=== PATIENT | female | born 1945 | race Caucasian/White ===

== ENCOUNTER 2016-12-10 20:15 | Emergency (ER) | payer MEDICARE, OTHER ==
[~2016-12-10] VITALS: Ht 167.6 cm; Wt 57.3 kg
[~2016-12-10 20:15] MED LIST: ALBU1AER INH; AMLO5TAB22 PO; LEVO.075 PO; LISI-363 PO; SYMB160A INH; TEMA15 PO; ZOLO50TA PO
[2016-12-10 20:38] VITALS: BP 188/96; PULSE 94; RESP 20; TEMP 98.6
[2016-12-10] MEDS ORDERED: AMLO5CAP PO (21:58)
[2016-12-10] MEDS ORDERED: SERT-129 PO (21:59)
[2016-12-10] MEDS ORDERED: TEMA15CA PO (21:59)
[2016-12-10] MEDS ORDERED: LEVO.075 PO (21:59)
[2016-12-10] MEDS ORDERED: LISI-515 PO (21:59)
--- NOTE | 2016-12-10 22:33 | PD ---
HPI Chief Complaint: ENT Complaint Time Seen by Provider: 20:00 Travel History International Travel<30 days: No Contact w/Intl Traveler<30days: No Traveled to known affect area: No History of Present Illness HPI Patient is 71-year-old female presenting to the emergency department for evaluation of a sore throat that has been ongoing for approximately one month. Patient denies any fever, chills, nausea, vomiting, headache. She denies any voice changes or weight loss. Her friend is with her and states that her voice is raspier than it normally is. Patient smokes one and half packs of cigars daily and drinks 3-4 beers daily. Patient reports feeling fatigued for the last 3 years. She has a primary doctor and sona [place] but she has not seen him because it's hard to get there and she feels that he doesn't address her problems. Patient reports that she has a thyroid problem and is on level thyroxine but is not compliant with taking that medication. Additionally she is on Zoloft but is not compliant with that medication either. PFSH Past Medical History Hx Anticoagulant Therapy: No Asthma: Yes (bronchitis) Blood Disorders: No Anxiety: Yes Depression: Yes Heart Rhythm Problems: No Cancer: No Cardiovascular Problems: Yes High Cholesterol: No Chemotherapy: No Chest Pain: No Congestive Heart Failure: No COPD: Yes Cerebrovascular Accident: No Diabetes: No Diminished Hearing: No Endocrine: Yes Gastrointestinal Disorders: No GERD: No Genitourinary: Yes Headaches: Yes Hiatal Hernia: No Hypertension: Yes Immune Disorder: No Implanted Vascular Access Dvce: Yes Kidney Stones: No Musculoskeletal: No Neurologic: Yes ("fuzzy feeling".) Psychiatric: Yes Reproductive: No Respiratory: Yes (COPD) Immunizations Current: Yes Migraines: No Radiation Therapy: No Renal Failure: No Seizures: Yes Sleep Apnea: No Thyroid Disease: Yes Ulcer: No PNEUMOCCOCAL Vaccine (Year): 2 Menopausal: Yes Past Surgical History Abdominal Surgery: No AICD: No Arteriovenous Shunt: No Cardiac Surgery: No Ear Surgery: No Endocrine Surgery: No Eye Surgery: No Genitourinary Surgery: No Gynecologic Surgery: Yes (1967 SURGERY TO CORRECT ENDOMETRIOSIS) Insulin Pump: No Joint Replacement: No (screws in left hip.) Neurologic Surgery: No Oral Surgery: No Pacemaker: No Thoracic Surgery: No Tonsillectomy: Yes Other Surgery: Yes (LEFT HIP) Social History Alcohol Use: Yes (4 beers daily) Tobacco Use: Yes (1 1/2-2 ppd) Substance Use: No Allergies-Medications (Allergen,Severity, Reaction): Coded Allergies: Codeine (Verified Allergy, Severe, Irritability/Anxiety, 04/26/16) Oxycontin (Verified Allergy, Intermediate, ITCHES, 04/26/16) Percocet (Verified Allergy, Intermediate, ITCHES, 04/26/16) Reported Meds & Prescriptions Reported Meds & Active Scripts Active Reported Temazepam 15 Mg Cap 15 Mg PO HS PRN Sertraline (Sertraline HCl) 100 Mg Tab 100 Mg PO DAILY Synthroid (Levothyroxine Sodium) 75 Mcg Tab 75 Mcg PO DAILY Lisinopril 20 Mg Tab 20 Mg PO DAILY Amlodipine-Benazepril 5-10 Mg Cap 1 Cap PO DAILY Review of Systems Except as stated in HPI: all other systems reviewed are Neg General / Constitutional: No: Fever, Chills, Weight Loss HENT: Positive: Sore Throat, No: Headaches, Lightheadedness Cardiovascular: No: Chest Pain or Discomfort Respiratory: Positive: Cough (chronic), No: Shortness of Breath Gastrointestinal: No: Nausea, Vomiting, Diarrhea, Abdominal Pain Musculoskeletal: No: Myalgias Physical Exam Narrative GENERAL: Well-nourished, well-developed patient. SKIN: Warm and dry. HEAD: Normocephalic. ENT: Mucosa pink and moist. No erythema or exudates. No uvular edema. No uvular , palatal, or tonsillar deviation. Airway patent. Nasal turbinates appear normal without nasal blood, purulent drainage or septal hematoma. Cobblestone appearance to posterior pharynx, no erythema noted. EYES: No scleral icterus. No injection or drainage. NECK: Supple, trachea midline. No JVD or lymphadenopathy. CARDIOVASCULAR: Regular rate and rhythm without murmurs, gallops, or rubs. RESPIRATORY: Breath sounds equal bilaterally. No accessory muscle use. GASTROINTESTINAL: Abdomen soft, non-tender, nondistended. MUSCULOSKELETAL: No cyanosis, or edema. BACK: Nontender without obvious deformity. No CVA tenderness. Data Data Last Documented VS Vital Signs Date Time Temp Pulse Resp B/P Pulse Ox O2 Delivery O2 Flow Rate FiO2 12/11/16 00:25 88 20 206/82 97 12/10/16 20:38 98.6 Orders Chest, Pa & Lat (12/10/16 ) Lisinopril (Prinivil) (12/11/16 00:15) MDM Medical Decision Making Medical Screen Exam Complete: Yes Emergency Medical Condition: Yes Interpretation(s) Vital Signs Date Time Temp Pulse Resp B/P Pulse Ox O2 Delivery O2 Flow Rate FiO2 12/10/16 20:38 98.6 94 20 188/96 Differential Diagnosis Silent reflux versus allergic rhinitis versus malignancy versus hypothyroidism versus other Narrative Course Patient is 71-year-old female presenting to the emergency department for evaluation of a sore throat that is ongoing for at least a month. Patient has had no weight loss, minor voice changes per her friend's report. Patient smokes a pack and a half of cigars a day and drinks alcohol daily. In the differential would include silent acid reflux, allergic rhinitis, malignancy, both thyroidism. Patient is not compliant with her thyroid medication at home. Chest x-ray was ordered and pending. Patient was also seen and evaluated by my attending physician. Patient was strongly encouraged to follow-up with her primary doctor her multiple medical complaints would best be evaluated a primary care setting. He was encouraged to maintain compliance with prescribed medications. She was further encouraged to make a list of medical complaints to bring to her primary doctor so that each one is addressed individually. Patient was encouraged to obtain [id number] Flonase her Nasonex and use as directed for at least 2 weeks to assess efficacy, to assess if allergic rhinitis was the cause of the throat pain. She was encouraged to obtain [id number] ranitidine or omeprazole and use as directed for at least 2 weeks to assess efficacy to see if silent reflux would be the cause of the sore throat. Additionally patient was encouraged to follow up with a dentist to have her teeth and mouth fully evaluated. Care of patient transferred to my attending physician at the end of my shift. She will determine patient's disposition Tanika Napoles Dec 10, 2016 22:33
--- NOTE | 2016-12-10 23:05 | RADHPO ---
EXAM DATE/TIME: 12/10/2016 22:46 [facility] COMPARISON: CHEST SINGLE AP, November 21, 2015, 20:04. INDICATIONS : Sore throat for 3 weeks. MEDICAL HISTORY : Chronic obstructive pulmonary disease. SURGICAL HISTORY : None. ENCOUNTER: Initial ACUITY: 3 weeks PAIN SCORE: 3/10 LOCATION: Bilateral chest FINDINGS: Hyperinflation of both lungs. Aortic calcification. There are fractures of the left fifth and sixth p osterior ribs as well as the seventh posterior left rib, subacute. No consolidation or effusion. CONCLUSION: Subacute left-sided rib fractures and hyperinflation. Robert Riggins MD on December 10, 2016 at 23:02 Board Certified Radiologist. This report was verified electronically.
--- NOTE | 2016-12-10 23:51 | PD ---
Physical Exam Date Seen by Provider: Dec 10, 2016 Time Seen by Provider: 23:10 Narrative accepted in transfer of care GENERAL: Well-developed well-nourished female in no acute distress no respiratory distress SKIN: Warm and dry. HEAD: Normocephalic. EYES: No scleral icterus. No injection or drainage. ENT: Mucous membranes moist airway is patent no erythema edema or exudative change no visible soft tissue/mucous membrane mass. NECK: Supple, trachea midline. No JVD or lymphadenopathy. CARDIOVASCULAR: Regular rate and rhythm without murmurs, gallops, or rubs. Chest wall: Mild tenderness to direct palpation of the left anterior chest wall no crepitus no ecchymosis or abrasion RESPIRATORY: Breath sounds equal bilaterally. No accessory muscle use. GASTROINTESTINAL: Abdomen soft, non-tender, nondistended. MUSCULOSKELETAL: No cyanosis, or edema. BACK: Nontender without obvious deformity. No CVA tenderness. Data Data Last Documented VS Vital Signs Date Time Temp Pulse Resp B/P Pulse Ox O2 Delivery O2 Flow Rate FiO2 12/11/16 00:25 88 20 206/82 97 12/10/16 20:38 98.6 Orders Chest, Pa & Lat (12/10/16 ) Lisinopril (Prinivil) (12/11/16 00:15) MDM Medical Record Reviewed: Yes Supervised Visit with ERICKA: Yes Interpretation(s) Last Impressions Chest X-Ray 12/10/16 0000 Signed Impressions: Service Date/Time: Saturday, December 10, 2016 22:46 - CONCLUSION: Subacute left-sided rib fractures and hyperinflation. Robert Riggins MD Differential Diagnosis Sore throat, pharyngitis, reflux esophagitis, rhinosinusitis, mass, viral syndrome, chest wall pain, rib fracture, COPD, bronchitis Narrative Course Patient seen in evaluation with PA and agree with assessment and plan; patient will have chest x-ray performed Chest x-ray reveals evidence of subacute left-sided rib fractures without evidence of infiltrate mass or pneumothorax Patient aware of imaging results in stable for outpatient management Diagnosis Primary Impression: Sore throat Additional Impression: Left rib fracture Qualified Code: S22.42XA - Closed fracture of multiple ribs of left side, initial encounter Referrals: Primary Care Physician call for appointment Patient Instructions: General Instructions Additional Instruction: Take acetaminophen and/or as tolerated ibuprofen per package instructions as needed for minor pain or for pain associated with inflammation respectively Follow-up with your primary care provider May use [id number] Pepcid AC per package directions daily for 2 weeks Increase fluid hydration May use [id number] Nasacort per package directions Return to the emergency department for any concerns or change in condition Med/Other Pt SpecificInfo: No Change to Meds Disposition: 01 DISCHARGE HOME Condition: Stable Elaine Jones MD Dec 10, 2016 23:51
[2016-12-11] MEDS ORDERED: LISINOPRIL 20 MG TAB PO ONE (00:15)
[2016-12-11 00:25] VITALS: BP 206/82
== END 2016-12-11 00:30 | disposition home or self-care (01) ==
LOC: PHEFT 20:15
DX: S22.42XA Multiple fractures of ribs, left side, initial encounter for closed fracture (principal); J02.9 Acute pharyngitis, unspecified; F17.290 Nicotine dependence, other tobacco product, uncomplicated; X58.XXXA Exposure to other specified factors, initial encounter
CPT/HCPCS: 71020; 99283

== ENCOUNTER 2016-12-19 17:54 | Inpatient (IN) | payer MEDICARE, MEDICAID ==
[~2016-12-19] VITALS: Ht 165.1 cm; Wt 54.2 kg
[2016-12-19] VITALS (7 sets, daily range): BP systolic 140–182; BP diastolic 73–85; PULSE 79–92; RESP 18–20; TEMP 97.7–97.8; O2SAT 94–98
[~2016-12-19 17:54] MED LIST changes: -ALBU1AER INH; +AMLO5CAP PO; -AMLO5TAB22 PO; -LISI-363 PO; +LISI-515 PO; +SERT-129 PO; -SYMB160A INH; -TEMA15 PO; +TEMA15CA PO; -ZOLO50TA PO
--- NOTE | 2016-12-19 18:43 | PD ---
HPI Chief Complaint: Respiratory Symptoms Time Seen by Provider: 18:21 Travel History International Travel<30 days: No Contact w/Intl Traveler<30days: No Traveled to known affect area: No History of Present Illness HPI 71-year-old female with history of COPD, tobaccoism, here for evaluation of shortness of breath, nausea, generalized malaise, generalized weakness, and ear fullness. Symptoms started yesterday. The patient sleeps with earplugs and feels as though she may left the earplugs in her ears. She has had subjective fevers and chills. Nonproductive cough. No chest pain. Dyspnea is at rest, worse with exertion. No abdominal pain, vomiting, or diarrhea. PFSH Past Medical History Hx Anticoagulant Therapy: Yes (81MG ASA) Asthma: Yes (bronchitis) Blood Disorders: No Anxiety: Yes Depression: Yes Heart Rhythm Problems: No Cancer: No Cardiovascular Problems: Yes High Cholesterol: No Chemotherapy: No Chest Pain: No Congestive Heart Failure: No COPD: Yes Cerebrovascular Accident: No Diabetes: No Diminished Hearing: No Endocrine: Yes Gastrointestinal Disorders: No GERD: No Genitourinary: Yes Headaches: Yes Hiatal Hernia: No Hypertension: Yes Immune Disorder: No Implanted Vascular Access Dvce: Yes Kidney Stones: No Musculoskeletal: No Neurologic: Yes ("fuzzy feeling".) Psychiatric: Yes Reproductive: No Respiratory: Yes (COPD) Immunizations Current: Yes Migraines: No Radiation Therapy: No Renal Failure: No Seizures: Yes Sleep Apnea: No Thyroid Disease: Yes Ulcer: No Tetanus Vaccination: Unknown PNEUMOCCOCAL Vaccine (Year): 2 ?: Not Menopausal: Yes Past Surgical History Abdominal Surgery: No AICD: No Arteriovenous Shunt: No Cardiac Surgery: No Ear Surgery: No Endocrine Surgery: No Eye Surgery: No Genitourinary Surgery: No Gynecologic Surgery: Yes (1967 SURGERY TO CORRECT ENDOMETRIOSIS) Hysterectomy: Yes Insulin Pump: No Joint Replacement: No (screws in left hip.) Neurologic Surgery: No Oral Surgery: No Pacemaker: No Thoracic Surgery: No Tonsillectomy: Yes Other Surgery: Yes (LEFT HIP) Social History Alcohol Use: Yes (4 beers daily) Tobacco Use: Yes (1 1/2-2 ppd) Substance Use: No Allergies-Medications (Allergen,Severity, Reaction): Coded Allergies: Codeine (Verified Allergy, Severe, Irritability/Anxiety, 12/19/16) Oxycontin (Verified Allergy, Intermediate, ITCHES, 12/19/16) Percocet (Verified Allergy, Intermediate, ITCHES, 12/19/16) Reported Meds & Prescriptions Reported Meds & Active Scripts Active Reported Temazepam 15 Mg Cap 15 Mg PO HS PRN Sertraline (Sertraline HCl) 100 Mg Tab 100 Mg PO DAILY Synthroid (Levothyroxine Sodium) 75 Mcg Tab 75 Mcg PO DAILY Lisinopril 20 Mg Tab 20 Mg PO DAILY Amlodipine-Benazepril 5-10 Mg Cap 1 Cap PO DAILY Review of Systems Except as stated in HPI: all other systems reviewed are Neg Physical Exam Narrative GENERAL: Well-developed, thin, no acute distress. SKIN: Warm and dry. HEAD: Atraumatic. Normocephalic. EYES: Pupils equal and round. No scleral icterus. No injection or drainage. ENT: Mucous membranes pink and moist. Bilateral tympanic membrane and external auditory canals are normal. NECK: Trachea midline. No JVD. No nuchal rigidity. CARDIOVASCULAR: Regular rate and rhythm. RESPIRATORY: No accessory muscle use. Coarse breath sounds bilaterally. End expiratory wheezes bilaterally. Breath sounds equal bilaterally. GASTROINTESTINAL: Abdomen soft, non-tender, nondistended. MUSCULOSKELETAL: No obvious deformities. No clubbing. No cyanosis. No edema. NEUROLOGICAL: Awake and alert. No obvious cranial nerve deficits. Motor grossly within normal limits. Normal speech. PSYCHIATRIC: Appropriate mood and affect; insight and judgment normal. Data Data Last Documented VS Vital Signs Date Time Temp Pulse Resp B/P Pulse Ox O2 Delivery O2 Flow Rate FiO2 12/19/16 20:23 80 18 182/73 98 Nasal Cannula 2 12/19/16 17:58 97.7 Orders Complete Blood Count With Diff (12/19/16 18:39) Comprehensive Metabolic Panel (12/19/16 18:39) B-Type Natriuretic Peptide (12/19/16 18:39) Act Partial Throm Time (Ptt) (12/19/16 18:39) Prothrombin Time / Inr (Pt) (12/19/16 18:39) Ckmb (Isoenzyme) Profile (12/19/16 18:39) Troponin I (12/19/16 18:39) Influenzae A/B Antigen (12/19/16 18:39) Iv Access Insert/Monitor (12/19/16 18:39) Electrocardiogram (12/19/16 18:39) Ecg Monitoring (12/19/16 18:39) Oximetry (12/19/16 18:39) Oxygen Administration (12/19/16 18:39) Chest, Single Ap (12/19/16 18:39) Sodium Chloride 0.9% Flush (Ns Flush) (12/19/16 18:45) Methylprednisolone So Succ Inj (Solumedr (12/19/16 18:45) Albuterol-Ipratropium Neb (Duoneb Neb) (12/19/16 18:45) CKMB (12/19/16 18:50) CKMB% (12/19/16 18:50) Basic Metabolic Panel (Bmp) (12/19/16 20:01) Potassium Chlor 20 Meq Premix (Kcl 20 Me (12/19/16 20:15) Sodium Chlor 0.9% 1000 Ml Inj (Ns 1000 M (12/19/16 20:01) Nicotine 21 Mg Patch.24 Hr (Habitrol 21 (12/19/16 20:45) Labs Laboratory Tests Test 12/19/16 12/19/16 18:50 20:10 White Blood Count 4.4 TH/MM3 Red Blood Count 4.90 MIL/MM3 Hemoglobin 14.8 GM/DL Hematocrit 43.9 % Mean Corpuscular Volume 89.6 FL Mean Corpuscular Hemoglobin 30.2 PG Mean Corpuscular Hemoglobin 33.7 % Concent Red Cell Distribution Width 13.1 % Platelet Count 327 TH/MM3 Mean Platelet Volume 8.1 FL Neutrophils (%) (Auto) 67.7 % Lymphocytes (%) (Auto) 11.9 % Monocytes (%) (Auto) 19.9 % Eosinophils (%) (Auto) 0.1 % Basophils (%) (Auto) 0.4 % Neutrophils # (Auto) 3.0 TH/MM3 Lymphocytes # (Auto) 0.5 TH/MM3 Monocytes # (Auto) 0.9 TH/MM3 Eosinophils # (Auto) 0.0 TH/MM3 Basophils # (Auto) 0.0 TH/MM3 CBC Comment DIFF FINAL Differential Comment Prothrombin Time 10.5 SEC Prothromb Time International 1.0 RATIO Ratio Activated Partial 30.3 SEC Thromboplast Time Sodium Level 112 MEQ/L 113 MEQ/L Potassium Level 2.2 MEQ/L 2.5 MEQ/L Chloride Level 70 MEQ/L 71 MEQ/L Carbon Dioxide Level 29.8 MEQ/L 28.4 MEQ/L Anion Gap 12 MEQ/L 14 MEQ/L Blood Urea Nitrogen 5 MG/DL 5 MG/DL Creatinine 0.59 MG/DL 0.50 MG/DL Estimat Glomerular Filtration 101 ML/MIN 122 ML/MIN Rate Random Glucose 179 MG/DL 139 MG/DL Calcium Level 8.3 MG/DL 8.5 MG/DL Total Bilirubin 0.5 MG/DL Aspartate Amino Transf 29 U/L (AST/SGOT) Alanine Aminotransferase 27 U/L (ALT/SGPT) Alkaline Phosphatase 85 U/L Total Creatine Kinase 256 U/L Creatine Kinase MB 13.3 NG/ML Creatine Kinase MB % 5.2 % Troponin I LESS THAN 0.02 NG/ML B-Type Natriuretic Peptide 48 PG/ML Total Protein 7.3 GM/DL Albumin 3.8 GM/DL MDM Medical Decision Making Medical Screen Exam Complete: Yes Emergency Medical Condition: Yes Medical Record Reviewed: Yes Interpretation(s) EKG: Sinus, rate 80, normal axis, short PA interval, LVH, extensive ST/T changes which can either be secondary to hypertrophy and/or ischemia, essentially unchanged from prior. Differential Diagnosis COPD exacerbation, pneumonia, influenza, URI, ACS, PE Narrative Course Vital signs show heart rate 88, blood pressure 141/85, pulse ox 97% on room air , oral temp of 97.7F. CBC is unremarkable. CMP is remarkable for sodium 112, potassium 2.2, chloride 70, random glucose 179 , otherwise unremarkable. Repeat BMP ordered to confirm these lab abnormalities. Troponin is negative. CK is 256, CK-MB is 13.3 with CK-MB percent 5.2%. Chest x-ray shows no acute disease. The patient was made aware of all findings per she is resting comfortably. She is awake and alert. She has been told that she has had low sodium in the past. She drinks tea throughout the day and drinks beer at night/evening time. She has not had any alcohol today. At this point there is no indication for hypertonic saline. Repeat BMP ordered to confirm lab abnormalities. Repeat BMP shows sodium 113, potassium 2.5, chloride 71. Again the patient is awake. According to the patient's sister who is present she seemed a little confused. She is not obtunded. She is not having seizures. There is no indication for hypertonic saline. She was started on normal saline at 125 cc per hour and parenteral potassium ordered. Patient will be admitted for further treatment and evaluation of hyponatremia, hypokalemia. Case discussed with deputy fire marshal Dr. Matute who will admit the patient to her service to the ICU here in [place]. Diagnosis Primary Impression: Hyponatremia Additional Impression: Hypokalemia Admitting Information Admitting Physician Requests: Admit Isac Storey MD Dec 19, 2016 18:43
[2016-12-19] MEDS ORDERED: RESP: ALBUTEROL 2.5 MG/IPRATROPIUM 0.5 MG NEB (SCH) INH ONE (18:45)
[2016-12-19] MEDS ORDERED: methylPREDNISolone SOD SUCC 125 MG/2 ML VIAL IVP ONE (18:45)
[2016-12-19] MEDS ORDERED: SODIUM CHLORIDE 0.9% FLUSH 5 ML FLUSH IVF PRN (18:45)
[2016-12-19 19:08] LABS: BASOPHIL % 0.4 % (0.0-2.0); EOSINOPHIL % 0.1 % (0.0-4.0); HEMATOCRIT 43.9 % (35.0-46.0); HEMO FLAGS DIFF FINAL; LYMPH % 11.9 % (9.0-44.0); LYMPHOCYTE # 0.5 TH/MM3 (1.0-4.8); MEAN CELL VOLUME 89.6 FL (80.0-100.0); MEAN CORPUSCULAR HEMOGLOBIN 30.2 PG (27.0-34.0); MEAN CORPUSCULAR HGB CONC 33.7 % (32.0-36.0); MONO % 19.9 % (0.0-8.0); NEUT % 67.7 % (16.0-70.0); PLATELET COUNT 327 TH/MM3 (150-450); RED CELL DISTRIBUTION WIDTH 13.1 % (11.6-17.2); WHITE BLOOD COUNT 4.4 TH/MM3 (4.0-11.0)
[2016-12-19 19:22] LABS: APTT (PATIENT) 30.3 SEC (24.3-30.1); PROTHROMBIN TIME - PATIENT 10.5 SEC (9.8-11.6)
--- NOTE | 2016-12-19 19:31 | RADHPO ---
EXAM DATE/TIME: 12/19/2016 18:42 [facility] COMPARISON: CHEST SINGLE AP, November 21, 2015, 20:04. INDICATIONS : Short of breath. MEDICAL HISTORY : Chronic obstructive pulmonary disease. SURGICAL HISTORY : None. ENCOUNTER: Initial ACUITY: 2 days PAIN SCORE: 0/10 LOCATION: Bilateral chest FINDINGS: A single view of the chest demonstrates the lungs to be symmetrically aerated without evidence of mas s, infiltrate or effusion. The cardiomediastinal contours are unremarkable. Osseous structures are intact. CONCLUSION: No acute disease. Salinas Willard MD on December 19, 2016 at 19:30 Board Certified Radiologist. This report was verified electronically.
[2016-12-19 19:42] LABS: ALKALINE PHOSPHATASE 85 U/L (45-117); ALT (GPT) 27 U/L (10-53); ANION GAP 12 MEQ/L (5-15); AST (GOT) 29 U/L (15-37); BICARBONATE 29.8 MEQ/L (21.0-32.0); BLOOD UREA NITROGEN 5 MG/DL (7-18); CHLORIDE 70 MEQ/L (98-107); CREATINE KINASE 256 U/L (26-192); GLOMERULAR FILTRATION RATE 101 ML/MIN (>89); TOTAL BILIRUBIN ADULT 0.5 MG/DL (0.2-1.0)
[2016-12-19 19:44] LABS: POTASSIUM 2.2 MEQ/L (3.5-5.1); SODIUM (NA) 112 MEQ/L (136-145)
[2016-12-19 19:58] LABS: CKMB 13.3 NG/ML (0.5-3.6)
[2016-12-19] MEDS ORDERED: SODIUM CHLOR 0.9% 1000 ML INJ 1,000 ML IV SCH (20:01)
[2016-12-19] MEDS ORDERED: POTASSIUM CHLOR 20 MEQ PREMIX 100 ML IV SCH (20:15)
[2016-12-19 20:29] LABS: BICARBONATE 28.4 MEQ/L (21.0-32.0)
[2016-12-19 20:35] LABS: POTASSIUM 2.5 MEQ/L (3.5-5.1)
[2016-12-19] MEDS ORDERED: NICOTINE 21 MG/24 HR PATCH TD ONE (20:45)
[2016-12-19] MEDS ORDERED: CHLORHEXIDINE GLUCONATE 2 % 1 PACK (2 CLOTHS) TOP PRN (21:45)
[2016-12-19] MEDS ORDERED: ONDANSETRON HCL 4 MG/2 ML VIAL IV PRN (21:45)
[2016-12-19] MEDS ORDERED: ASPIRIN 81 MG CHEW TAB PO ONE (21:45)
[2016-12-19] MEDS ORDERED: DEXTROSE 50% IN WATER 50 ML VIAL(D50) IV PUSH PRN (21:45)
[2016-12-19] MEDS ORDERED: SODIUM CHLORIDE 0.9% FLUSH 5 ML FLUSH IV FLUSH PRN (21:45)
[2016-12-19] MEDS ORDERED: MISCELLANEOUS NURSING INFORMATION XX SCH (21:45)
[2016-12-19] MEDS ORDERED: RESP: ALBUTEROL 2.5 MG/3 ML NEB (PRN) INH (21:45)
[2016-12-19] MEDS ORDERED: GLUCAGON 1 MG/ML VIAL OTHER PRN (21:45)
[2016-12-19] MEDS ORDERED: POTASSIUM CHLORIDE 20 MEQ CONTROLLED RELEASE TAB PO ONE (21:45)
[2016-12-19] MEDS: RESP: ALBUTEROL 2.5 MG/IPRATROPIUM 0.5 MG NEB (SCH) INH (21:56)
[2016-12-19] MEDS ORDERED: ENOXAPARIN SODIUM 40 MG/0.4 ML SYRINGE SQ SCH (22:00)
[2016-12-19] MEDS: LABETALOL HCL 100 MG/20 ML VIAL IV PUSH PRN (22:13)
[2016-12-19] MEDS ORDERED: TEMAZEPAM 15 MG CAP PO ONE (22:15)
[2016-12-19] MEDS: POTASSIUM CHLOR 20 MEQ PREMIX 100 ML IV SCH (22:54)
[2016-12-20] VITALS (30 sets, daily range): BP systolic 95–198; BP diastolic 52–91; PULSE 66–93; RESP 20–47; TEMP 97.4–98.8; O2SAT 88–98
[2016-12-20] MEDS: methylPREDNISolone SOD SUCC 125 MG/2 ML VIAL IV PUSH SCH ×3 (00:28→18:31)
[2016-12-20] MEDS: POTASSIUM CHLOR 20 MEQ PREMIX 100 ML IV SCH (00:29)
[2016-12-20] MEDS: NS + KCL 20 MEQ INJ 1,000 ML IV SCH ×2 (00:30→05:05)
[2016-12-20] MEDS ORDERED: POTASSIUM CHLOR 10 MEQ PREMIX 100 ML IV SCH (01:00)
[2016-12-20 01:13] LABS: CREATINE KINASE 240 U/L (26-192)
[2016-12-20] MEDS: LABETALOL HCL 100 MG/20 ML VIAL IV PUSH PRN ×2 (01:22→05:03)
[2016-12-20 01:26] LABS: CKMB 11.3 NG/ML (0.5-3.6)
[2016-12-20] MEDS ORDERED: HALOPERIDOL LACTATE 5 MG/ML AMP IV PUSH ONE (01:45)
[2016-12-20 01:53] LABS: MAGNESIUM 1.7 MG/DL (1.5-2.5)
[2016-12-20] MEDS: RESP: ALBUTEROL 2.5 MG/IPRATROPIUM 0.5 MG NEB (SCH) INH ×4 (04:00→22:20)
[2016-12-20] MEDS: CHLORHEXIDINE GLUCONATE 2 % 1 PACK (2 CLOTHS) TOP SCH (05:04)
[2016-12-20 05:23] LABS: AUTOMATED NEUTROPHIL # 2.8 TH/MM3 (1.8-7.7); BASOPHIL % 0.1 % (0.0-2.0); EOSINOPHIL % 0.1 % (0.0-4.0); HEMATOCRIT 44.9 % (35.0-46.0); HEMO FLAGS DIFF FINAL; LYMPH % 11.1 % (9.0-44.0); LYMPHOCYTE # 0.4 TH/MM3 (1.0-4.8); MEAN CELL VOLUME 89.9 FL (80.0-100.0); MEAN CORPUSCULAR HEMOGLOBIN 29.7 PG (27.0-34.0); MONO % 5.4 % (0.0-8.0); NEUT % 83.3 % (16.0-70.0); PLATELET COUNT 350 TH/MM3 (150-450); RED CELL DISTRIBUTION WIDTH 12.9 % (11.6-17.2); WHITE BLOOD COUNT 3.5 TH/MM3 (4.0-11.0)
[2016-12-20 05:44] LABS: BICARBONATE 26.7 MEQ/L (21.0-32.0); MAGNESIUM 1.8 MG/DL (1.5-2.5); POTASSIUM 4.1 MEQ/L (3.5-5.1)
[2016-12-20] MEDS ORDERED: LEVOTHYROXINE SODIUM 75 MCG TAB PO SCH (06:00)
[2016-12-20] MEDS ORDERED: LORazepam 2 MG TAB PO PRN (06:45)
[2016-12-20] MEDS ORDERED: FLUMAZENIL 0.5 MG/5 ML VIAL IV PUSH PRN (06:45)
[2016-12-20] MEDS ORDERED: LORazepam 2 MG/ML VIAL IV PUSH PRN ×3 (06:45)
[2016-12-20] MEDS ORDERED: cloNIDine HCL 0.1 MG TAB PO PRN ×2 (06:45→09:45)
[2016-12-20] MEDS ORDERED: SODIUM CHLORIDE 0.9% FLUSH 5 ML FLUSH IV FLUSH PRN (06:45)
--- NOTE | 2016-12-20 06:57 | HHI.HP ---
[facility] Service Critical Care Medicine Primary Care Physician Simeon Wharton MD Admission Diagnosis severe hyponatremia, hypokalemia Diagnosis: (1) Hyponatremia Diagnosis: Principal (2) Delirium Diagnosis: Principal (3) Hypokalemia Diagnosis: Principal (4) COPD (chronic obstructive pulmonary disease) Diagnosis: Principal (5) Tobacco abuse Diagnosis: Principal (6) Hypothyroid Diagnosis: Principal (7) Hypertension Diagnosis: Principal Chief Complaint: Severe hyponatremia COPD exacerbation Travel History International Travel<30 Days: No Contact w/Intl Traveler <30 Da: No Traveled to Known Affected Are: No History of Present Illness Patient is a poor historian; most history is obtained from review of EMR and some from the patient Patient is a 71-year-old female with history of COPD, tobacco abuse, alcohol dependence, hypothyroidism, chronic hyponatremia, and history of seizure disorder who presented to the [place] emergency department for evaluation of shortness of breath, nausea, and generalized weakness, ongoing for 24 hours. She also complained of subjective fever and chills although she was afebrile in the ED, complained about nonproductive cough as well. Chest x- ray was negative, CMP is remarkable for sodium 112, potassium 2.2, chloride 70, glucose 179. Troponin is negative, CK is 256, CK-MB is 13.3 with CK-MB percent 5.2%. Denies chest pain, no acute EKG pubiefd-JK-[id number] wave changes most likely from left ventricle hypertrophy, unchanged from previous I evaluated the patient in the ICU. She is lying in the bed comfortable. Her sodium this morning is 119 (corrected at a rate of 0.5 mEq per hour). TSH was 11 and I have increased her Synthroid 100 g daily. Alternate intermittently agitated responded to Haldol. Patient drinks approximately 4 beers daily but did not know went to first last drink was. I have started her on CIWA protocol. Patient also was placed on IV Solu-Medrol and scheduled DuoNeb for COPD exacerbation Review of Systems ROS Limitations: Poor Historian (as per history of present illness), Other Past Family Social History Allergies: Coded Allergies: Codeine (Verified Allergy, Severe, Irritability/Anxiety, 12/19/16) Oxycontin (Verified Allergy, Intermediate, ITCHES, 12/19/16) Percocet (Verified Allergy, Intermediate, ITCHES, 12/19/16) Past Medical History Chronic hyponatremia COPD Alcohol dependence Tobacco abuse Hypothyroidism History of seizure disorder Hypertension Past Surgical History Left hip surgery Surgery for endometriosis in 1967 Reported Medications Temazepam 15 Mg Cap 15 Mg PO HS PRN Sertraline (Sertraline HCl) 100 Mg Tab 100 Mg PO DAILY Synthroid (Levothyroxine Sodium) 75 Mcg Tab 75 Mcg PO DAILY Lisinopril 20 Mg Tab 20 Mg PO DAILY Amlodipine-Benazepril 5-10 Mg Cap 1 Cap PO DAILY Active Ordered Medications Reviewed Family History Previous H&P indicates family history of Alzheimer's disease Social History Smokes 1-1/2 packs of cigarettes daily Drinks 3-4 beers daily Physical Exam Vital Signs Vital Signs Date Time Temp Pulse Resp B/P Pulse Ox O2 Delivery O2 Flow Rate FiO2 12/20/16 06:00 72 32 179/84 94 12/20/16 06:00 71 12/20/16 05:00 78 43 173/87 12/20/16 04:00 66 12/20/16 04:00 70 40 143/65 97 12/20/16 03:00 74 21 164/77 97 12/20/16 02:00 74 23 145/77 97 12/20/16 02:00 67 12/20/16 01:00 84 39 169/78 97 12/20/16 00:00 80 12/20/16 00:00 82 34 169/82 12/19/16 23:15 97.8 80 20 159/85 97 12/19/16 22:58 79 140/74 97 Nasal Cannula 2 12/19/16 21:57 97 Nasal Cannula 2.00 12/19/16 21:51 92 18 171/83 98 Aerosol Mask 12/19/16 20:23 80 18 182/73 98 Nasal Cannula 2 12/19/16 18:52 20 94 Nasal Cannula 2 12/19/16 18:52 94 Nasal Cannula 2 12/19/16 18:04 18 97 Room Air 12/19/16 17:58 97.7 88 18 141/85 97 Physical Exam Review of Systems Except as stated in HPI: all other systems reviewed are Neg Physical Exam Narrative GENERAL: Well-developed, thin, no acute distress. Alert awake poor historian SKIN: Warm and dry. HEAD: Atraumatic. Normocephalic. EYES: Pupils equal and round. No scleral icterus. No injection or drainage. ENT: Mucous membranes pink and dry NECK: Trachea midline. No JVD. No nuchal rigidity. CARDIOVASCULAR: Regular rate and rhythm. RESPIRATORY: No accessory muscle use. Mild end expiratory wheezes bilaterally. Breath sounds equal bilaterally. GASTROINTESTINAL: Abdomen soft, non-tender, nondistended. MUSCULOSKELETAL: No obvious deformities. No clubbing. No cyanosis. No edema. NEUROLOGICAL: Awake and alert. No obvious cranial nerve deficits. Motor grossly within normal limits. Laboratory Laboratory Tests Test 12/19/16 12/19/16 12/19/16 12/19/16 18:50 20:10 23:20 23:40 White Blood Count 4.4 Red Blood Count 4.90 Hemoglobin 14.8 Hematocrit 43.9 Mean Corpuscular Volume 89.6 Mean Corpuscular Hemoglobin 30.2 Mean Corpuscular Hemoglobin 33.7 Concent Red Cell Distribution Width 13.1 Platelet Count 327 Mean Platelet Volume 8.1 Neutrophils (%) (Auto) 67.7 Lymphocytes (%) (Auto) 11.9 Monocytes (%) (Auto) 19.9 Eosinophils (%) (Auto) 0.1 Basophils (%) (Auto) 0.4 Neutrophils # (Auto) 3.0 Lymphocytes # (Auto) 0.5 Monocytes # (Auto) 0.9 Eosinophils # (Auto) 0.0 Basophils # (Auto) 0.0 CBC Comment DIFF FINAL Differential Comment Prothrombin Time 10.5 Prothromb Time International 1.0 Ratio Activated Partial 30.3 Thromboplast Time Sodium Level 112 113 Potassium Level 2.2 2.5 Chloride Level 70 71 Carbon Dioxide Level 29.8 28.4 Anion Gap 12 14 Blood Urea Nitrogen 5 5 Creatinine 0.59 0.50 Estimat Glomerular Filtration 101 122 Rate Random Glucose 179 139 Calcium Level 8.3 8.5 Total Bilirubin 0.5 Aspartate Amino Transf 29 (AST/SGOT) Alanine Aminotransferase 27 (ALT/SGPT) Alkaline Phosphatase 85 Total Creatine Kinase 256 Creatine Kinase MB 13.3 Creatine Kinase MB % 5.2 Troponin I LESS THAN 0.02 B-Type Natriuretic Peptide 48 Total Protein 7.3 Albumin 3.8 Thyroid Stimulating Hormone 11.500 3rd Gen Nasal Screen MRSA (PCR) NEGATIVE Urine Osmolality 375 Urine Random Creatinine 117.8 Urine Random Sodium 25 Urine Random Uric Acid 67.6 Test 12/20/16 12/20/16 00:40 05:00 Serum Osmolality 240 Magnesium Level 1.7 1.8 Total Creatine Kinase 240 Creatine Kinase MB 11.3 Creatine Kinase MB % 4.7 Troponin I LESS THAN 0.02 White Blood Count 3.5 Red Blood Count 5.00 Hemoglobin 14.8 Hematocrit 44.9 Mean Corpuscular Volume 89.9 Mean Corpuscular Hemoglobin 29.7 Mean Corpuscular Hemoglobin 33.0 Concent Red Cell Distribution Width 12.9 Platelet Count 350 Mean Platelet Volume 7.8 Neutrophils (%) (Auto) 83.3 Lymphocytes (%) (Auto) 11.1 Monocytes (%) (Auto) 5.4 Eosinophils (%) (Auto) 0.1 Basophils (%) (Auto) 0.1 Neutrophils # (Auto) 2.8 Lymphocytes # (Auto) 0.4 Monocytes # (Auto) 0.2 Eosinophils # (Auto) 0.0 Basophils # (Auto) 0.0 CBC Comment DIFF FINAL Differential Comment Sodium Level 119 Potassium Level 4.1 Chloride Level 83 Carbon Dioxide Level 26.7 Anion Gap 9 Blood Urea Nitrogen 3 Creatinine 0.48 Estimat Glomerular Filtration 128 Rate Random Glucose 147 Calcium Level 8.2 Phosphorus Level 1.8 Date/Time Procedure Status Source Growth 12/19/16 18:50 Influenza Types A,B Antigen (JACQUELIN) - Final Complete Nasal Washing NEGATIVE FOR FLU A AND B ANTIGEN.... Result Diagram: 12/20/16 0500 12/20/16 0500 Assessment and Plan Assessment and Plan NEURO: Alcohol dependence, with signs of withdrawal Delirium History of seizure disorder -Her delirium and encephalopathy most likely secondary to hyponatremia, and alcohol withdrawal -Initiate CIWA protocol, supplement multivitamin thiamine folic acid -Seizure precautions RESP: COPD exacerbation Tobacco abuse -Nasal cannula oxygen -DuoNeb every 6 hours scheduled and when necessary -Solu-Medrol 60 mg every 12 CV: Hypertension uncontrolled -Normal saline IV fluids at 100 mL per hour -Resume lisinopril and Norvasc Benzapril combination -When necessary Trandate for hypertension -2-D echo had been ordered and pending at this time GI: -Start cardiac diet. Protonix for GI prophylaxis : -Monitor renal function closely. García catheter. ID: -Monitor for infection, chest x-ray clear HEME: -Monitor CBC, CMP, coags ENDO: Acute on chronic hyponatremia Hypothyroidism Hyperglycemia -Patient's worsening of hyponatremia secondary to alcohol abuse dehydration ( hypochloremic hyponatremia) and hypothyroidism -Continue normal saline at 100 mL per hour, target sodium level correction to 124 at 05. meq /hour and then 5-6 meq per 24 hours -Increase Synthroid to 100 g daily -Sliding-scale insulin, check hemoglobin A1c PROPH: -Bilateral lower extremity SCDs. Lovenox and Protonix LINES: -Utilize peripheral IVs, central line if needed Level III new consult Hospitalist consulted to see him 12/21/16 Code Status Full Discussed Condition With Bedside RN Problem Qualifiers (1) COPD (chronic obstructive pulmonary disease): Qualified Code: J44.1 - Chronic obstructive pulmonary disease with acute exacerbation Verna Niño MD Dec 20, 2016 06:56
[2016-12-20] MEDS ORDERED: INSULIN ASPART SUPPLEMENTAL SCALE SQ SCH ×2 (07:00)
[2016-12-20] MEDS: SODIUM CHLORIDE 0.9% FLUSH 5 ML FLUSH IV FLUSH SCH ×4 (09:00→21:14)
[2016-12-20] MEDS: SODIUM CHLOR 0.9% 1000 ML INJ 1,000 ML IV SCH ×2 (09:00→18:29)
[2016-12-20] MEDS ORDERED: NON-FORMULARY DRUG (Amlodipine-Benazepril 1 CAP) PO SCH (09:00)
[2016-12-20] MEDS: ENOXAPARIN SODIUM 40 MG/0.4 ML SYRINGE SQ SCH (09:04)
[2016-12-20] MEDS: PANTOPRAZOLE SODIUM 40 MG VIAL IV SCH (09:04)
[2016-12-20] MEDS: amLODIPine BESYLATE 5 MG TAB PO SCH (09:05)
[2016-12-20] MEDS: MULTIVITAMINS/MINERALS THERAPEUTIC TAB PO SCH (09:05)
[2016-12-20] MEDS: SERTRALINE HCL 100 MG TAB PO SCH (09:06)
[2016-12-20] MEDS: DOCUSATE SODIUM 100 MG CAP PO SCH ×2 (09:06→21:14)
[2016-12-20] MEDS: LISINOPRIL 10 MG TAB PO SCH (09:06)
[2016-12-20] MEDS: THIAMINE HCL 100 MG TAB PO SCH (09:06)
[2016-12-20] MEDS: FOLIC ACID 1 MG TAB PO SCH (09:07)
[2016-12-20] MEDS: LISINOPRIL 20 MG TAB PO SCH (09:07)
[2016-12-20] MEDS: LORazepam 1 MG TAB PO PRN ×2 (09:07→16:00)
[2016-12-20] MEDS ORDERED: ENALAPRILAT 1.25 MG/ML VIAL IV PRN (09:45)
--- NOTE | 2016-12-20 11:39 | MB ---
cc: SERA GRIFFITH DATE OF CONSULTATION: 12/19/2016 DATE OF : 1945 ADMITTING DOCTOR: Dr. Niño. CONSULTING PHYSICIAN: Dr. Sera Griffith. REASON FOR CONSULTATION: Assist in medical management, care of this patients altered mental status, generalized weakness, nausea and shortness of breath. HISTORY OF PRESENT ILLNESS: The patient came to the emergency room because of the above problem. The patient is a 71-year female with a significant past medical history of COPD, tobacco use and chronic hyponatremia, hypothyroidism and alcohol dependence. Also history of seizure disorder. The patient uses alcohol as per the patient herself to and one half beers every night. She also smokes one and one half pack per day. As the patient she has nausea and also has generalized weakness, shortness of breath, wheezing and cough which is going on for more than 24 hours so she came to the emergency room. Was brought to the emergency room and the physician found out she has severe hyponatremia, hyperkalemia. She has increase in creatine kinase as well. No acute changes on the electrocardiogram. The patient was admitted to the Intensive Care Unit. The patient was taken care of by the fx artist. Her sodium was 112 and today it is 119. The patient is alert and oriented. Her potassium is better. The patient has just shortness of breath, wheezing and cough. She still has some weakness. There is no other associated symptoms. PAST MEDICAL HISTORY As described above. History of hypertension. PAST SURGICAL HISTORY: Surgery for endometriosis 1966. MEDICATIONS: The medications reviewed please see markers ALLERGIES CODEINE OXYCONTIN PERCOCET REVIEW OF SYSTEMS As described in the 10 systems. SOCIAL HISTORY The patient has smoked one and one half pack per day, drinks one and a half beers per day, as per the fx artist notes, she drinks three to four beers daily. Does not use any drugs. FAMILY HISTORY <<2:52>> disease in the family. PHYSICAL EXAMINATION IN GENERAL: The patient is alert, oriented x3 well-built, well-nourished lying on bed with some increase in the breathing rate. VITAL SIGNS: The patient afebrile, pulse is 72. Respiratory rate is 28, blood pressure 179/84, pulse ox of 94%. HEAD, EYES, EARS, NOSE, AND THROAT: Head is atraumatic, normocephalic. Negative conjunctival icterus, mouth unremarkable. NECK: Supple. No increased JVD. Negative thyromegaly. Central trachea. CHEST: Decreased air entry bibasilar with scattered expiratory wheezing. No accessory muscle use. CARDIOVASCULAR SYSTEM: S1, S2, Audible. No S3, S4. ABDOMEN: Soft, no organomegaly. Positive bowel sounds. MUSCULOSKELETAL: No cyanosis or pedal edema appreciated. CENTRAL NERVOUS SYSTEM: Alert, oriented, normal facial features normal speech, normal power and tone of extremity. Skin: Warm and dry. PSYCHIATRIC: Psych noncontributory. INVESTIGATIONS: Sodium 198, it was 113, BUN 3. Creatinine 0.48, random glucose 147, phosphorus 1.8, total CK 240, CK-MB 11.3, CK-MB percent 4.7, troponin x2 less than 0.02. SGPT pending. PT/INR within normal limits. Urine osmolarity 375. WBC 3.5. Negative for flu A and flu B. RADIOLOGIC: Chest x-ray Shows no acute disease. EKG shows sinus 80 beats per minute without any ST elevation. ASSESSMENT 1. Altered mental status metabolic encephalopathy secondary to hyponatremia, electrolyte imbalance and alcohol EtOH less likely withdrawal. 2. EtOH dependence 3. Chronic nicotine abuse. 4. Seizure disorder. 5. COPD exacerbation on admission. 6. Hypertension uncontrolled on admission. 7. Severe hyponatremia. 8. Severe hyperkalemia on admission. 9. Hypothyroidism with increase TSH level on admission. PLAN/RECOMMENDATIONS 1. The patient has been admitted to the ICU. 2. We will monitor sodium and potassium level. 3. Continue IV hydration. 4. Phosphorous is low we will replace. 5. Continue on IV steroids and nebulizer treatments. 6. Keep on oxygen and keep oxygen saturation above 90%. 7. Monitor blood pressure. Keep her on a p.r.n. basis medication for high blood pressure. 8. Watch for alcohol withdrawal. Keep her on meds to prevent withdrawal. 9. Labs in morning. 10. Physical therapy. 11. Counseled about anti smoking and to stop drinking. 12. See orders. Further recommendation follow as the patient progress. Dr. Velarde will follow this patient from tomorrow. Sera Griffith MD JP/surya /9:30 AM /9:55 AM MTDD
[2016-12-20] MEDS: INSULIN ASPART SUPPLEMENTAL SCALE SQ SCH ×3 (11:44→21:00)
--- NOTE | 2016-12-20 17:04 | EKG ---
Date Performed: 12/20/2016 Time Performed: 00:47:10 PTAGE: 71 years EKG: Sinus rhythm Anterolateral ST-T changes are nonspecific Compared to prior tracing no significant change [place] e ECG PREVIOUS TRACING : 12/19/2016 19.02 DOCTOR: Waldemar Hewitt Interpretating Date/Time 12/20/2016 16:57:08
--- NOTE | 2016-12-20 17:04 | EKG ---
Date Performed: 12/20/2016 Time Performed: 06:36:12 PTAGE: 71 years EKG: Sinus rhythm Compared to prior tracing no significant change Normal ECG PREVIOUS TRACING : 12/20/2016 00.47 DOCTOR: Waldemar Hewitt Interpretating Date/Time 12/20/2016 16:57:18
--- NOTE | 2016-12-20 17:04 | EKG ---
Date Performed: 12/19/2016 Time Performed: 19:02:16 PTAGE: 71 years EKG: Sinus rhythm Short IL interval Left ventricular hypertrophy Extensive ST-T changes may be due to hypertrophy and/ or ischemia Compared to prior tracing no significant change Abnormal ECG PREVIOUS TRACING : 11/21/2015 20.13 DOCTOR: Waldemar Hewitt Interpretating Date/Time 12/20/2016 16:56:57
--- NOTE | 2016-12-20 19:02 | EC ---
Study Study Date:12/20/2016 STUDY CONCLUSIONS SUMMARY - Left ventricle: The cavity size was normal. Systolic function was normal. The estimated ejection fraction was in the range of 60% to 65%. Although no diagnostic regional wall motion abnormality was identified, this possibility cannot be completely excluded on the basis of this study. Doppler parameters are consistent with abnormal left ventricular relaxation (grade 1 diastolic dysfunction). - Pulmonary arteries: PA peak pressure: 42mm Hg (S). If LV function is below 40, please consider prescribing an ACEI or ARB or document rationale for non-use. PROCEDURE DATA STUDY STATUS: Elective. Procedure: Transthoracic echocardiography. Image quality was good. Scanning was performed from the parasternal, apical, and subcostal acoustic windows. Study completion: The patient tolerated the procedure well. Transthoracic echocardiography. M-mode, complete 2D, complete spectral Doppler, and color Doppler. Patient status: Inpatient. CARDIAC ANATOMY LEFT VENTRICLE: The cavity size was normal. Systolic function was normal. The estimated ejection fraction was in the range of 60% to 65%. Although no diagnostic regional wall motion abnormality was identified, this possibility cannot be completely excluded on the basis of this study. Doppler parameters are consistent with abnormal left ventricular relaxation (grade 1 diastolic dysfunction). AORTIC VALVE: The valve appears to be grossly normal. Doppler: There was no stenosis. No significant regurgitation. MITRAL VALVE: The valve appears to be grossly normal. Doppler: There was no evidence for stenosis. Trace regurgitation. Peak gradient: 2mm Hg (D). LEFT ATRIUM: The atrium was normal in size. RIGHT VENTRICLE: The cavity size was normal. PULMONIC VALVE: Not well visualized. TRICUSPID VALVE: The valve appears to be grossly normal. Doppler: There was no evidence for stenosis. Trace to mild regurgitation. BASIC MEASUREMENTS ADULT NORMAL Left ventricle LV internal dimension, ED, chordal level, *37.6 mm 43-52 PLAX LV internal dimension, ES, chordal level, 26.7 mm 23-38 PLAX Fractional shortening, chordal level, PLAX *29 % >29 LV posterior wall thickness, ED 10.8 mm IVS/LVPW ratio, ED *1.31 <1.3 Ventricular septum Septal thickness, ED 14.1 mm Aortic valve Leaflet separation 16 mm 15-26 Right ventricle RV internal dimension, ED, PLAX 19.9 mm 19-38 BASIC MEASUREMENTS ADULT NORMAL Aortic valve Leaflet separation 16 mm 15-26 Aorta Root diameter, ED 27 mm 20-37 Left atrium Anterior-posterior dimension, ES 33 mm 19-40 LA/aortic root ratio 1.22 DOPPLER MEASUREMENTS ADULT NORMAL Main pulmonary artery Pressure, S *42 mm Hg =30 Mitral valve Peak E-wave velocity 75 cm/s Peak A-wave velocity 95.3 cm/s Deceleration time 211 ms 150-230 Peak gradient, D 2 mm Hg Peak E/A ratio 0.8 Tricuspid valve Regurgitant peak velocity 284 cm/s Peak RV-RA gradient, S 32 mm Hg Maximal regurgitant velocity 284 cm/s Systemic veins Estimated CVP 10 mm Hg Right ventricle RV pressure, S *42 mm Hg <30 LEGEND: Mean values are shown as u=mean value. Asterisk (*) alcaraz values outside specified normal range. Prepared and signed by Tramaine Latif [id number]
[2016-12-21] VITALS (27 sets, daily range): BP systolic 118–196; BP diastolic 51–95; PULSE 78–98; RESP 20–37; TEMP 98.2–99.1; O2SAT 91–97
[2016-12-21] MEDS: RESP: ALBUTEROL 2.5 MG/IPRATROPIUM 0.5 MG NEB (SCH) INH ×4 (04:08→21:33)
[2016-12-21] MEDS: SODIUM CHLOR 0.9% 1000 ML INJ 1,000 ML IV SCH (04:37)
[2016-12-21] MEDS: CHLORHEXIDINE GLUCONATE 2 % 1 PACK (2 CLOTHS) TOP SCH (04:38)
[2016-12-21 06:04] LABS: AUTOMATED NEUTROPHIL # 5.9 TH/MM3 (1.8-7.7); EOSINOPHIL % 0.1 % (0.0-4.0); HEMATOCRIT 38.1 % (35.0-46.0); HEMO FLAGS DIFF FINAL; LYMPHOCYTE # 1.3 TH/MM3 (1.0-4.8); MEAN CELL VOLUME 89.7 FL (80.0-100.0); MEAN CORPUSCULAR HEMOGLOBIN 30.3 PG (27.0-34.0); MEAN CORPUSCULAR HGB CONC 33.8 % (32.0-36.0); MONO % 11.7 % (0.0-8.0); NEUT % 72.2 % (16.0-70.0); PLATELET COUNT 307 TH/MM3 (150-450); RED BLOOD COUNT 4.25 MIL/MM3 (4.00-5.30); RED CELL DISTRIBUTION WIDTH 13.1 % (11.6-17.2); WHITE BLOOD COUNT 8.1 TH/MM3 (4.0-11.0)
[2016-12-21] MEDS: LEVOTHYROXINE SODIUM 100 MCG TAB PO SCH (06:25)
[2016-12-21] MEDS: INSULIN ASPART SUPPLEMENTAL SCALE SQ SCH (06:25)
[2016-12-21] MEDS: methylPREDNISolone SOD SUCC 125 MG/2 ML VIAL IV PUSH SCH ×2 (06:25→17:11)
[2016-12-21] MEDS: MULTIVITAMINS/MINERALS THERAPEUTIC TAB PO SCH (08:15)
[2016-12-21] MEDS: LISINOPRIL 20 MG TAB PO SCH (08:15)
[2016-12-21] MEDS: LISINOPRIL 10 MG TAB PO SCH (08:15)
[2016-12-21] MEDS: FOLIC ACID 1 MG TAB PO SCH (08:15)
[2016-12-21] MEDS: amLODIPine BESYLATE 5 MG TAB PO SCH (08:15)
[2016-12-21] MEDS: THIAMINE HCL 100 MG TAB PO SCH (08:16)
[2016-12-21] MEDS: SERTRALINE HCL 100 MG TAB PO SCH (08:16)
[2016-12-21] MEDS: PANTOPRAZOLE SODIUM 40 MG VIAL IV SCH (08:16)
[2016-12-21] MEDS: SODIUM CHLORIDE 0.9% FLUSH 5 ML FLUSH IV FLUSH SCH ×4 (08:16→20:19)
[2016-12-21] MEDS: ENOXAPARIN SODIUM 40 MG/0.4 ML SYRINGE SQ SCH (08:16)
[2016-12-21] MEDS: DOCUSATE SODIUM 100 MG CAP PO SCH ×2 (08:16→20:19)
--- NOTE | 2016-12-21 09:34 | HHI.PR ---
Subjective History of Present Illness Patient feel weak and Tired have low sodium and Potassium will replace and monitor. D/W JORDYN Anton at bed side. Lower back pain need nicotine patch. no acute issue Review of Systems Constitutional Constitutional: Fatigue, Weakness Vitals/Results Intake & Output 12/20/16 12/20/16 12/21/16 15:00 23:00 07:00 Intake Total 2455 ml 461 ml 978 ml Output Total 2500 ml 500 ml 900 ml Balance -45 ml -39 ml 78 ml Intake Oral 960 ml 240 ml 240 ml IV Total 1495 ml 221 ml 738 ml Output Urine Total 2500 ml 500 ml 900 ml # Voids 2 # Bowel Movements 0 0 Vital Signs Vital Signs Date Time Temp Pulse Resp B/P Pulse Ox O2 Delivery O2 Flow Rate FiO2 12/21/16 09:00 78 21 151/66 93 12/21/16 08:00 99.1 84 22 196/95 95 12/21/16 08:00 Nasal Cannula 2.00 12/21/16 08:00 83 12/21/16 07:50 94 Nasal Cannula 2.00 12/21/16 07:17 92 25 185/89 95 12/21/16 06:00 80 12/21/16 06:00 80 20 133/58 95 12/21/16 05:00 84 21 166/76 96 12/21/16 04:00 88 12/21/16 04:00 98.2 88 27 143/63 95 12/21/16 03:00 82 20 138/61 94 12/21/16 02:00 84 24 120/51 95 12/21/16 02:00 84 12/21/16 01:00 82 24 138/66 93 12/21/16 00:00 85 12/21/16 00:00 98.3 84 24 119/53 93 12/20/16 23:00 84 20 135/68 95 12/20/16 22:21 96 Nasal Cannula 2.00 12/20/16 22:00 82 21 159/60 94 12/20/16 22:00 82 12/20/16 21:11 90 26 160/65 90 12/20/16 20:00 82 12/20/16 20:00 98.8 82 42 157/66 96 12/20/16 19:00 78 24 129/70 98 12/20/16 18:00 88 23 134/64 96 2/17/17 18:00 87 12/20/16 17:00 76 30 115/64 90 12/20/16 16:00 88 12/20/16 16:00 97.4 88 43 155/62 92 12/20/16 15:00 84 35 138/82 93 12/20/16 14:00 92 41 152/91 94 12/20/16 14:00 93 12/20/16 13:00 74 41 111/56 92 12/20/16 12:00 78 12/20/16 12:00 98.6 76 28 95/52 94 12/20/16 11:00 82 34 128/69 98 12/20/16 10:30 73 12/20/16 10:22 82 47 166/66 95 12/20/16 10:22 82 47 166/66 95 12/20/16 10:18 84 30 198/81 95 12/20/16 10:18 84 30 198/81 95 CBC/BMP: 12/21/16 0536 12/21/16 0245 Lab Results Laboratory Tests Test 12/20/16 12/21/16 12/21/16 18:20 02:45 05:36 Sodium Level 123 MEQ/L 125 MEQ/L White Blood Count 8.1 TH/MM3 Red Blood Count 4.25 MIL/MM3 Hemoglobin 12.9 GM/DL Hematocrit 38.1 % Mean Corpuscular Volume 89.7 FL Mean Corpuscular Hemoglobin 30.3 PG Mean Corpuscular Hemoglobin 33.8 % Concent Red Cell Distribution Width 13.1 % Platelet Count 307 TH/MM3 Mean Platelet Volume 7.9 FL Neutrophils (%) (Auto) 72.2 % Lymphocytes (%) (Auto) 16.0 % Monocytes (%) (Auto) 11.7 % Eosinophils (%) (Auto) 0.1 % Basophils (%) (Auto) 0.0 % Neutrophils # (Auto) 5.9 TH/MM3 Lymphocytes # (Auto) 1.3 TH/MM3 Monocytes # (Auto) 0.9 TH/MM3 Eosinophils # (Auto) 0.0 TH/MM3 Basophils # (Auto) 0.0 TH/MM3 CBC Comment DIFF FINAL Differential Comment Physical Exam General General Appearance: No Acute Distress, Comfortable Eyes Eye Exam: Pupils Equal, Pupils Reactive, Sclera White, Extraocular Movement Intact Throat Throat Exam: Oral Mucosa [place] & Moist, Oral Pharynx Normal Neck Neck Exam: Neck Supple, Trachea Midline Pulmonary Resp Exam: Clear Bilaterally, Breath Sounds Equal, No Distress Cardiology CV Exam: Regular, Normal Sinus Rhythm Musculoskeletal MS Exam: Joints Intact, Normal Tone Integumentary Skin Exam: Clear, Warm, Dry Extremeties Extremities Exam: No Edema Neurologic Neuro Exam: Alert, Awake, Oriented, Speech Clear, Moving All Extremities, No Focal Deficits Psychiatric Psych Exam: Appropriate Responses VTE Prophylaxis VTE Prophylaxis Device: SCDs PUD Prophylasis PUD Prophylaxis: Protonix Assessment/Plan Problem List: (1) Hyponatremia (2) Delirium (3) Hypokalemia (4) COPD (chronic obstructive pulmonary disease) (5) Tobacco abuse (6) Hypothyroid (7) Hypertension Assessment/Plan ASSESSMENT 1. Altered mental status metabolic encephalopathy secondary to hyponatremia, electrolyte imbalance and alcohol EtOH less likely withdrawal. 2. EtOH dependence 3. Chronic nicotine abuse... on nicotine Patch. 4. Seizure disorder. 5. COPD exacerbation on admission...better now 6. Hypertension uncontrolled on admission. 7. Severe hyponatremia...will monitor. 8. Severe hypokalemia will replace and monitor. 9. Hypothyroidism with increase TSH level on admission. PLAN/RECOMMENDATIONS We will monitor sodium and potassium level. Continue IV hydration. Phosphorous is low we will replace. Continue on IV steroids and nebulizer treatments. Keep on oxygen and keep oxygen saturation above 90%. Monitor blood pressure. Keep her on a p.r.n. basis medication for high blood pressure. 8. Watch for alcohol withdrawal. Keep her on meds to prevent withdrawal. 9. Labs in morning. CBC with diff CMP in AM. Discussed Condition with: Patient Problem Qualifiers (1) COPD (chronic obstructive pulmonary disease): Qualified Code: J44.1 - Chronic obstructive pulmonary disease with acute exacerbation Mckay Velarde MD Dec 21, 2016 09:34
[2016-12-21] MEDS ORDERED: INFLUENZA VIRUS VACCINE (QUADRIVALENT) 0.5 ML SYR IM ONE (10:00)
[2016-12-21 11:19] LABS: BICARBONATE 27.9 MEQ/L (21.0-32.0)
[2016-12-21 11:22] LABS: POTASSIUM 2.5 MEQ/L (3.5-5.1)
[2016-12-21] MEDS: NS + KCL 40 MEQ INJ 1,000 ML IV SCH ×2 (11:56→22:22)
[2016-12-21] MEDS: POTASSIUM CHLOR 20 MEQ PREMIX 100 ML IV SCH ×3 (11:57→16:14)
[2016-12-21] MEDS ORDERED: ACETAMINOPHEN 325 MG TAB PO PRN (17:00)
[2016-12-21] MEDS: NICOTINE 21 MG/24 HR PATCH TD SCH (17:12)
[2016-12-21] MEDS: REMOVE OLD NICODERM (NICOTINE) PATCH TD SCH (20:19)
[2016-12-21 20:54] LABS: ALKALINE PHOSPHATASE 66 U/L (45-117); ALT (GPT) 18 U/L (10-53); ANION GAP 10 MEQ/L (5-15); AST (GOT) 10 U/L (15-37); BICARBONATE 25.6 MEQ/L (21.0-32.0); BLOOD UREA NITROGEN 2 MG/DL (7-18); CHLORIDE 90 MEQ/L (98-107); GLOMERULAR FILTRATION RATE 131 ML/MIN (>89); MAGNESIUM 1.7 MG/DL (1.5-2.5); POTASSIUM 3.8 MEQ/L (3.5-5.1); SODIUM (NA) 126 MEQ/L (136-145); TOTAL BILIRUBIN ADULT 0.3 MG/DL (0.2-1.0)
[2016-12-21] MEDS ORDERED: SODIUM PHOSPHATE INJ 30 MMOL in SODIUM CHLOR 0.9% 250 ML INJ 240 ML IV SCH (22:00)
[2016-12-21] MEDS ORDERED: ICU - SODIUM PHOSPHATE 30 MMOL/NS 250 ML IV PRN ×2 (22:15)
[2016-12-21] MEDS: LORazepam 2 MG/ML VIAL IV PUSH PRN (23:35)
[2016-12-21] MEDS: LABETALOL HCL 100 MG/20 ML VIAL IV PUSH PRN (23:52)
[2016-12-22] VITALS (24 sets, daily range): BP systolic 109–177; BP diastolic 58–89; PULSE 84–112; RESP 16–38; TEMP 97.8–99.4; O2SAT 92–98
[2016-12-22] MEDS: LORazepam 2 MG/ML VIAL IV PUSH PRN ×2 (03:15→21:48)
[2016-12-22] MEDS: CHLORHEXIDINE GLUCONATE 2 % 1 PACK (2 CLOTHS) TOP SCH ×2 (03:19→23:02)
[2016-12-22] MEDS: RESP: ALBUTEROL 2.5 MG/IPRATROPIUM 0.5 MG NEB (SCH) INH ×4 (03:29→21:13)
--- NOTE | 2016-12-22 05:06 | HHI.PR ---
Subjective History of Present Illness Patient feel weak and Tired have low sodium and Potassium and phosphorous will replace and monitor. 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 no acute issue Review of Systems Constitutional Constitutional: Fatigue, Weakness Vitals/Results Intake & Output 12/21/16 12/21/16 12/22/16 15:00 23:00 07:00 Intake Total 1286 ml 998 ml Output Total 500 ml 900 ml Balance 786 ml 98 ml Intake Oral 480 ml 300 ml IV Total 806 ml 698 ml Output Urine Total 500 ml 900 ml # Bowel Movements 1 Vital Signs Vital Signs Date Time Temp Pulse Resp B/P Pulse Ox O2 Delivery O2 Flow Rate FiO2 12/22/16 03:01 92 24 171/71 98 12/22/16 02:01 90 23 168/70 96 12/22/16 02:00 90 12/22/16 01:01 84 23 158/62 95 12/22/16 00:00 90 12/21/16 23:01 92 22 174/81 95 12/21/16 22:01 98 25 168/78 95 12/21/16 22:00 98 12/21/16 21:35 96 Nasal Cannula 2.00 12/21/16 20:01 98.6 96 24 166/82 95 12/21/16 20:00 94 12/21/16 19:01 94 26 153/57 96 12/21/16 19:00 96 Nasal Cannula 2.00 12/21/16 18:00 92 28 145/75 95 12/21/16 18:00 92 12/21/16 17:01 94 25 136/59 95 12/21/16 16:00 98.4 96 27 150/63 96 12/21/16 16:00 96 12/21/16 15:00 98 22 134/73 94 12/21/16 14:00 90 12/21/16 14:00 90 23 144/59 97 12/21/16 13:00 96 29 145/65 93 12/21/16 12:00 98.8 82 21 140/58 93 12/21/16 12:00 82 12/21/16 11:00 84 22 118/58 92 12/21/16 10:00 84 37 148/61 91 12/21/16 10:00 84 12/21/16 09:00 78 21 151/66 93 12/21/16 08:00 99.1 84 22 196/95 95 12/21/16 08:00 Nasal Cannula 2.00 12/21/16 08:00 83 12/21/16 07:50 94 Nasal Cannula 2.00 12/21/16 07:17 92 25 185/89 95 12/21/16 06:00 80 12/21/16 06:00 80 20 133/58 95 CBC/BMP: 12/21/16 0536 12/21/162009 Lab Results Laboratory Tests Test 12/21/16 12/21/16 12/21/16 05:36 10:40 20:10 White Blood Count 8.1 TH/MM3 Red Blood Count 4.25 MIL/MM3 Hemoglobin 12.9 GM/DL Hematocrit 38.1 % Mean Corpuscular Volume 89.7 FL Mean Corpuscular Hemoglobin 30.3 PG Mean Corpuscular Hemoglobin 33.8 % Concent Red Cell Distribution Width 13.1 % Platelet Count 307 TH/MM3 Mean Platelet Volume 7.9 FL Neutrophils (%) (Auto) 72.2 % Lymphocytes (%) (Auto) 16.0 % Monocytes (%) (Auto) 11.7 % Eosinophils (%) (Auto) 0.1 % Basophils (%) (Auto) 0.0 % Neutrophils # (Auto) 5.9 TH/MM3 Lymphocytes # (Auto) 1.3 TH/MM3 Monocytes # (Auto) 0.9 TH/MM3 Eosinophils # (Auto) 0.0 TH/MM3 Basophils # (Auto) 0.0 TH/MM3 CBC Comment DIFF FINAL Differential Comment Sodium Level 127 MEQ/L 126 MEQ/L Potassium Level 2.5 MEQ/L 3.8 MEQ/L Chloride Level 89 MEQ/L 90 MEQ/L Carbon Dioxide Level 27.9 MEQ/L 25.6 MEQ/L Anion Gap 10 MEQ/L 10 MEQ/L Blood Urea Nitrogen 3 MG/DL 2 MG/DL Creatinine 0.33 MG/DL 0.47 MG/DL Estimat Glomerular Filtration 197 ML/MIN 131 ML/MIN Rate Random Glucose 116 MG/DL 112 MG/DL Calcium Level 7.6 MG/DL 7.9 MG/DL Phosphorus Level 1.3 MG/DL Magnesium Level 1.7 MG/DL Total Bilirubin 0.3 MG/DL Aspartate Amino Transf 10 U/L (AST/SGOT) Alanine Aminotransferase 18 U/L (ALT/SGPT) Alkaline Phosphatase 66 U/L Total Protein 6.4 GM/DL Albumin 3.2 GM/DL Physical Exam General General Appearance: No Acute Distress, Comfortable Eyes Eye Exam: Pupils Equal, Pupils Reactive, Sclera White, Extraocular Movement Intact Throat Throat Exam: Oral Mucosa [place] & Moist, Oral Pharynx Normal Neck Neck Exam: Neck Supple, Trachea Midline Pulmonary Resp Exam: Clear Bilaterally, Breath Sounds Equal, No Distress Cardiology CV Exam: Regular, Normal Sinus Rhythm Musculoskeletal MS Exam: Joints Intact, Normal Tone Integumentary Skin Exam: Clear, Warm, Dry Extremeties Extremities Exam: No Edema Neurologic Neuro Exam: Alert, Awake, Oriented, Speech Clear, Moving All Extremities, No Focal Deficits Psychiatric Psych Exam: Appropriate Responses VTE Prophylaxis VTE Prophylaxis Device: SCDs PUD Prophylasis PUD Prophylaxis: Protonix Assessment/Plan Problem List: (1) Hyponatremia (2) Delirium (3) Hypokalemia (4) COPD (chronic obstructive pulmonary disease) (5) Tobacco abuse (6) Hypothyroid (7) Hypertension Assessment/Plan ASSESSMENT 1. Altered mental status metabolic encephalopathy secondary to hyponatremia, electrolyte imbalance and alcohol EtOH less likely withdrawal. 2. EtOH dependence 3. Chronic nicotine abuse... on nicotine Patch. 4. Seizure disorder. 5. COPD exacerbation on admission...better now 6. Hypertension uncontrolled on admission. 7. Severe hyponatremia...will monitor. 8. Severe hypokalemia/Hypophosphatemia will replace and monitor. 9. Hypothyroidism with increase TSH level on admission. increased dose of levothyroxine. PLAN/RECOMMENDATIONS We will monitor sodium and potassium level. Continue IV hydration. Phosphorous is low we will replace. Continue on IV steroids and nebulizer treatments. Keep on oxygen and keep oxygen saturation above 90%. Monitor blood pressure. Keep her on a p.r.n. basis medication for high blood pressure. 8. Watch for alcohol withdrawal. Keep her on meds to prevent withdrawal. 9. Labs in morning. CBC with diff CMP in AM. Discussed Condition with: Patient Problem Qualifiers (1) COPD (chronic obstructive pulmonary disease): Qualified Code: J44.1 - Chronic obstructive pulmonary disease with acute exacerbation Mckay Velarde MD Dec 22, 2016 05:06
[2016-12-22 06:01] LABS: AUTOMATED NEUTROPHIL # 5.7 TH/MM3 (1.8-7.7); BASOPHIL % 0.2 % (0.0-2.0); EOSINOPHIL % 0.1 % (0.0-4.0); HEMATOCRIT 37.9 % (35.0-46.0); HEMO FLAGS DIFF FINAL; LYMPH % 23.4 % (9.0-44.0); LYMPHOCYTE # 2.1 TH/MM3 (1.0-4.8); MEAN CELL VOLUME 89.1 FL (80.0-100.0); MEAN CORPUSCULAR HEMOGLOBIN 30.6 PG (27.0-34.0); MEAN CORPUSCULAR HGB CONC 34.3 % (32.0-36.0); MONO % 12.8 % (0.0-8.0); NEUT % 63.5 % (16.0-70.0); PLATELET COUNT 342 TH/MM3 (150-450); RED BLOOD COUNT 4.26 MIL/MM3 (4.00-5.30); RED CELL DISTRIBUTION WIDTH 13.2 % (11.6-17.2); WHITE BLOOD COUNT 8.9 TH/MM3 (4.0-11.0)
[2016-12-22] MEDS: LEVOTHYROXINE SODIUM 100 MCG TAB PO SCH (06:17)
[2016-12-22] MEDS: methylPREDNISolone SOD SUCC 125 MG/2 ML VIAL IV PUSH SCH ×2 (06:17→17:15)
[2016-12-22 06:39] LABS: ALKALINE PHOSPHATASE 61 U/L (45-117); ALT (GPT) 17 U/L (10-53); ANION GAP 9 MEQ/L (5-15); AST (GOT) 11 U/L (15-37); BICARBONATE 28.6 MEQ/L (21.0-32.0); BLOOD UREA NITROGEN 2 MG/DL (7-18); CHLORIDE 91 MEQ/L (98-107); GLOMERULAR FILTRATION RATE 271 ML/MIN (>89); SODIUM (NA) 129 MEQ/L (136-145); TOTAL BILIRUBIN ADULT 0.4 MG/DL (0.2-1.0)
[2016-12-22 07:07] LABS: POTASSIUM 2.9 MEQ/L (3.5-5.1)
[2016-12-22] MEDS: DOCUSATE SODIUM 100 MG CAP PO SCH ×2 (09:00→20:52)
[2016-12-22] MEDS: SODIUM CHLORIDE 0.9% FLUSH 5 ML FLUSH IV FLUSH SCH ×4 (09:00→20:50)
[2016-12-22] MEDS: PANTOPRAZOLE SODIUM 40 MG VIAL IV SCH (10:42)
[2016-12-22] MEDS: ENOXAPARIN SODIUM 40 MG/0.4 ML SYRINGE SQ SCH (10:42)
[2016-12-22] MEDS: LISINOPRIL 10 MG TAB PO SCH (10:42)
[2016-12-22] MEDS: NS + KCL 40 MEQ INJ 1,000 ML IV SCH ×2 (10:42→23:02)
[2016-12-22] MEDS: SERTRALINE HCL 100 MG TAB PO SCH (10:43)
[2016-12-22] MEDS: MULTIVITAMINS/MINERALS THERAPEUTIC TAB PO SCH (10:43)
[2016-12-22] MEDS: amLODIPine BESYLATE 5 MG TAB PO SCH (10:43)
[2016-12-22] MEDS: FOLIC ACID 1 MG TAB PO SCH (10:43)
[2016-12-22] MEDS: THIAMINE HCL 100 MG TAB PO SCH (10:43)
[2016-12-22] MEDS: POTASSIUM CHLOR 20 MEQ PREMIX 100 ML IV SCH ×3 (10:44→14:55)
[2016-12-22] MEDS: NICOTINE 21 MG/24 HR PATCH TD SCH (10:44)
[2016-12-22] MEDS: LISINOPRIL 20 MG TAB PO SCH (10:45)
[2016-12-22] MEDS ORDERED: MAGNESIUM SULFATE 2 GM/NS 100 ML IV ONE ×2 (11:00)
[2016-12-22] MEDS: REMOVE OLD NICODERM (NICOTINE) PATCH TD SCH (20:52)
[2016-12-23] VITALS (11 sets, daily range): BP systolic 146–194; BP diastolic 67–107; PULSE 81–120; RESP 18–33; TEMP 97–98.7; O2SAT 93–98
[2016-12-23] MEDS: RESP: ALBUTEROL 2.5 MG/IPRATROPIUM 0.5 MG NEB (SCH) INH ×5 (03:23→19:01)
[2016-12-23] MEDS: methylPREDNISolone SOD SUCC 125 MG/2 ML VIAL IV PUSH SCH ×2 (06:43→18:39)
[2016-12-23] MEDS: LEVOTHYROXINE SODIUM 100 MCG TAB PO SCH (06:44)
--- NOTE | 2016-12-23 08:16 | HHI.PR ---
Subjective History of Present Illness Patient feel weak and Tired have low sodium and phosphorous will replace and monitor. 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 no acute issue Review of Systems Constitutional Constitutional: Fatigue, Weakness Vitals/Results Intake & Output 12/22/16 12/22/16 12/23/16 15:00 23:00 07:00 Intake Total 2674 ml 810 ml Output Total 300 ml 200 ml Balance 2374 ml 610 ml Intake Oral 740 ml 240 ml IV Total 1934 ml 570 ml Output Urine Total 300 ml 200 ml # Voids 19 5 # Bowel Movements 1 Vital Signs Vital Signs Date Time Temp Pulse Resp B/P Pulse Ox O2 Delivery O2 Flow Rate FiO2 12/23/16 06:00 82 12/23/16 04:00 90 12/23/16 03:12 97.5 98 32 151/71 93 12/23/16 00:00 120 12/22/16 23:41 97.8 96 24 109/58 94 12/22/16 22:00 96 24 120/69 12/22/16 22:00 96 12/22/16 21:15 94 Nasal Cannula 2.00 12/22/16 21:00 98 26 161/78 93 12/22/16 20:00 100 12/22/16 20:00 104 29 177/77 98 12/22/16 19:00 95 Nasal Cannula 2.00 12/22/16 16:00 100 12/22/16 16:00 99.4 100 38 162/82 94 12/22/16 12:22 99.1 98 25 151/76 12/22/16 12:00 87 Nasal Cannula 4.00 12/22/16 12:00 112 12/22/16 09:40 93 Nasal Cannula 2.00 12/22/16 09:00 90 23 163/77 95 CBC/BMP: 12/22/16 0540 12/23/16 0007 Lab Results Laboratory Tests Test 12/23/16 00:07 Potassium Level 4.0 MEQ/L Phosphorus Level 2.3 MG/DL Physical Exam General General Appearance: No Acute Distress, Comfortable Eyes Eye Exam: Pupils Equal, Pupils Reactive, Sclera White, Extraocular Movement Intact Throat Throat Exam: Oral Mucosa [place] & Moist, Oral Pharynx Normal Neck Neck Exam: Neck Supple, Trachea Midline Pulmonary Resp Exam: Clear Bilaterally, Breath Sounds Equal, No Distress Cardiology CV Exam: Regular, Normal Sinus Rhythm Musculoskeletal MS Exam: Joints Intact, Normal Tone Integumentary Skin Exam: Clear, Warm, Dry Extremeties Extremities Exam: No Edema Neurologic Neuro Exam: Alert, Awake, Oriented, Speech Clear, Moving All Extremities, No Focal Deficits Psychiatric Psych Exam: Appropriate Responses VTE Prophylaxis VTE Prophylaxis Device: SCDs PUD Prophylasis PUD Prophylaxis: Protonix Assessment/Plan Problem List: (1) Hyponatremia (2) Delirium (3) Hypokalemia (4) COPD (chronic obstructive pulmonary disease) (5) Tobacco abuse (6) Hypothyroid (7) Hypertension Assessment/Plan ASSESSMENT 1. Altered mental status metabolic encephalopathy secondary to hyponatremia, electrolyte imbalance and alcohol EtOH less likely withdrawal. 2. EtOH dependence 3. Chronic nicotine abuse... on nicotine Patch. 4. Seizure disorder. 5. COPD exacerbation on admission...better now 6. Hypertension uncontrolled on admission. 7. Severe hyponatremia...will monitor. 8. Severe hypokalemia/Hypophosphatemia will replace and monitor. 9. Hypothyroidism with increase TSH level on admission. increased dose of levothyroxine. PLAN/RECOMMENDATIONS We will monitor sodium, potassium, magnasium and phosphorous level. Continue IV hydration. Phosphorous is low we will replace. Continue on IV steroids and nebulizer treatments. Keep on oxygen and keep oxygen saturation above 90%. Monitor blood pressure. Keep her on a p.r.n. basis medication for high blood pressure. 8. Watch for alcohol withdrawal. Keep her on meds to prevent withdrawal. 9. Labs in morning. CBC with diff CMP in AM. Discussed Condition with: Patient Problem Qualifiers (1) COPD (chronic obstructive pulmonary disease): Qualified Code: J44.1 - Chronic obstructive pulmonary disease with acute exacerbation Mckay Velarde MD Dec 23, 2016 08:16
[2016-12-23] MEDS: DOCUSATE SODIUM 100 MG CAP PO SCH ×2 (09:00→21:00)
[2016-12-23] MEDS: SODIUM CHLORIDE 0.9% FLUSH 5 ML FLUSH IV FLUSH SCH ×4 (09:00→22:45)
[2016-12-23 09:06] LABS: CHLORIDE 93 MEQ/L (98-107); POTASSIUM 3.8 MEQ/L (3.5-5.1); SODIUM (NA) 128 MEQ/L (136-145)
[2016-12-23 09:07] LABS: AUTOMATED NEUTROPHIL # 7.5 TH/MM3 (1.8-7.7); BASOPHIL % 0.1 % (0.0-2.0); EOSINOPHIL # 0.1 TH/MM3 (0-0.4); EOSINOPHIL % 0.8 % (0.0-4.0); HEMATOCRIT 42.6 % (35.0-46.0); HEMO FLAGS DIFF FINAL; LYMPH % 10.3 % (9.0-44.0); LYMPHOCYTE # 0.9 TH/MM3 (1.0-4.8); MEAN CELL VOLUME 90.7 FL (80.0-100.0); MEAN CORPUSCULAR HEMOGLOBIN 29.8 PG (27.0-34.0); MEAN CORPUSCULAR HGB CONC 32.9 % (32.0-36.0); MONO % 6.7 % (0.0-8.0); NEUT % 82.1 % (16.0-70.0); PLATELET COUNT 396 TH/MM3 (150-450); WHITE BLOOD COUNT 9.1 TH/MM3 (4.0-11.0)
[2016-12-23 09:15] LABS: ALKALINE PHOSPHATASE 64 U/L (45-117); ALT (GPT) 19 U/L (10-53); ANION GAP 9 MEQ/L (5-15); AST (GOT) 10 U/L (15-37); BICARBONATE 26.1 MEQ/L (21.0-32.0); BLOOD UREA NITROGEN 4 MG/DL (7-18); GLOMERULAR FILTRATION RATE 167 ML/MIN (>89); TOTAL BILIRUBIN ADULT 0.4 MG/DL (0.2-1.0)
[2016-12-23] MEDS: PANTOPRAZOLE SODIUM 40 MG VIAL IV SCH (09:16)
[2016-12-23] MEDS: LISINOPRIL 10 MG TAB PO SCH (09:16)
[2016-12-23] MEDS: SERTRALINE HCL 100 MG TAB PO SCH (09:16)
[2016-12-23] MEDS: FOLIC ACID 1 MG TAB PO SCH (09:16)
[2016-12-23] MEDS: ENOXAPARIN SODIUM 40 MG/0.4 ML SYRINGE SQ SCH (09:16)
[2016-12-23] MEDS: amLODIPine BESYLATE 5 MG TAB PO SCH (09:16)
[2016-12-23] MEDS: NICOTINE 21 MG/24 HR PATCH TD SCH (09:17)
[2016-12-23] MEDS: LISINOPRIL 20 MG TAB PO SCH (09:17)
[2016-12-23] MEDS: THIAMINE HCL 100 MG TAB PO SCH (09:17)
[2016-12-23] MEDS: MULTIVITAMINS/MINERALS THERAPEUTIC TAB PO SCH (09:17)
[2016-12-23] MEDS: NS + KCL 40 MEQ INJ 1,000 ML IV SCH (11:03)
--- NOTE | 2016-12-23 11:18 | RADHPO ---
EXAM DATE/TIME: 12/23/2016 10:44 [facility] COMPARISON: CHEST SINGLE AP, December 19, 2016, 18:42. INDICATIONS : Short of breath. MEDICAL HISTORY : Chronic obstructive pulmonary disease. SURGICAL HISTORY : None. ENCOUNTER: Subsequent ACUITY: 4 - 6 days PAIN SCORE: 0/10 LOCATION: Bilateral chest FINDINGS: A single view of the chest demonstrates the lungs to be symmetrically aerated without evidence of mas s, infiltrate or effusion. The cardiomediastinal contours are unremarkable. Scoliotic curvature. Sub acute left-sided rib fractures. CONCLUSION: 1. No acute intrathoracic process. 2. Left-sided subacute rib fractures. Mark Tesfaye Jr., MD on December 23, 2016 at 11:15 Board Certified Radiologist. This report was verified electronically.
[2016-12-23] MEDS ORDERED: RESP: ALBUTEROL 2.5 MG/IPRATROPIUM 0.5 MG NEB (PRN) INH (11:45)
[2016-12-23] MEDS: LORazepam 1 MG TAB PO PRN ×2 (18:39→22:59)
[2016-12-23] MEDS: REMOVE OLD NICODERM (NICOTINE) PATCH TD SCH (21:00)
[2016-12-23] MEDS: LORazepam 2 MG/ML VIAL IV PUSH PRN (22:56)
[2016-12-24] VITALS (9 sets, daily range): BP systolic 115–166; BP diastolic 66–96; PULSE 83–105; RESP 18–20; TEMP 96.3–98.7; O2SAT 94–99
[2016-12-24] MEDS: NS + KCL 40 MEQ INJ 1,000 ML IV SCH ×2 (02:29→13:46)
[2016-12-24] MEDS: CHLORHEXIDINE GLUCONATE 2 % 1 PACK (2 CLOTHS) TOP SCH (04:00)
[2016-12-24] MEDS: LORazepam 1 MG TAB PO PRN (05:20)
[2016-12-24] MEDS: methylPREDNISolone SOD SUCC 125 MG/2 ML VIAL IV PUSH SCH ×2 (05:21→17:00)
[2016-12-24] MEDS: LEVOTHYROXINE SODIUM 100 MCG TAB PO SCH (05:29)
[2016-12-24 07:06] LABS: RED BLOOD COUNT 4.54 MIL/MM3 (4.00-5.30); WHITE BLOOD COUNT 9.6 TH/MM3 (4.0-11.0)
[2016-12-24 07:07] LABS: AUTOMATED NEUTROPHIL # 5.9 TH/MM3 (1.8-7.7); BASOPHIL % 0.1 % (0.0-2.0); EOSINOPHIL % 0.5 % (0.0-4.0); HEMO FLAGS DIFF FINAL; LYMPH % 23.4 % (9.0-44.0); LYMPHOCYTE # 2.3 TH/MM3 (1.0-4.8); MEAN CELL VOLUME 90.4 FL (80.0-100.0); MEAN CORPUSCULAR HEMOGLOBIN 30.8 PG (27.0-34.0); MONO % 14.7 % (0.0-8.0); NEUT % 61.3 % (16.0-70.0); PLATELET COUNT 403 TH/MM3 (150-450); RED CELL DISTRIBUTION WIDTH 13.8 % (11.6-17.2)
[2016-12-24 07:08] LABS: CHLORIDE 92 MEQ/L (98-107); POTASSIUM 3.9 MEQ/L (3.5-5.1); SODIUM (NA) 128 MEQ/L (136-145)
[2016-12-24 07:16] LABS: ANION GAP 9 MEQ/L (5-15); BICARBONATE 26.8 MEQ/L (21.0-32.0); BLOOD UREA NITROGEN 5 MG/DL (7-18)
[2016-12-24 07:19] LABS: ALT (GPT) 17 U/L (10-53); AST (GOT) 10 U/L (15-37); GLOMERULAR FILTRATION RATE 178 ML/MIN (>89)
[2016-12-24 07:20] LABS: TOTAL BILIRUBIN ADULT 0.4 MG/DL (0.2-1.0)
[2016-12-24 07:21] LABS: ALKALINE PHOSPHATASE 58 U/L (45-117)
[2016-12-24] MEDS: RESP: ALBUTEROL 2.5 MG/IPRATROPIUM 0.5 MG NEB (SCH) INH ×4 (07:32→20:35)
[2016-12-24] MEDS: SODIUM CHLORIDE 0.9% FLUSH 5 ML FLUSH IV FLUSH SCH ×4 (07:54→20:03)
--- NOTE | 2016-12-24 08:16 | HHI.PR ---
Subjective History of Present Illness Patient feel better eating breakfast. have low sodium and phosphorous will replace and monitor. D/W JORDYN Willis at bed side. wants to go home. . no acute issue Review of Systems Constitutional Constitutional: Fatigue, Weakness Vitals/Results Intake & Output 12/23/16 12/23/16 12/24/16 15:00 23:00 07:00 Intake Total 614 ml 697 ml 1001 ml Balance 614 ml 697 ml 1001 ml Intake Oral 120 ml 480 ml IV Total 494 ml 697 ml 521 ml # Voids 5 10 # Bowel Movements 0 0 Vital Signs Vital Signs Date Time Temp Pulse Resp B/P Pulse Ox O2 Delivery O2 Flow Rate FiO2 12/24/16 07:54 98.3 90 20 142/92 96 12/24/16 07:34 96 Nasal Cannula 2.00 12/24/16 04:00 96.3 93 18 166/96 97 12/24/16 00:00 97.1 98 18 146/67 98 12/23/16 20:00 97.0 97 18 155/80 97 12/23/16 20:00 96 12/23/16 20:00 95 Nasal Cannula 2.00 12/23/16 19:00 98 Nasal Cannula 3.00 12/23/16 16:00 97.8 100 26 156/71 94 12/23/16 16:00 100 12/23/16 12:16 98.0 88 22 146/67 93 12/23/16 12:16 88 12/23/16 10:22 94 Nasal Cannula 1.00 12/23/16 10:17 96 Nasal Cannula 3.00 CBC/BMP: 12/24/16 0525 12/24/16 0525 Lab Results Laboratory Tests Test 12/23/16 12/24/16 08:40 05:25 White Blood Count 9.1 TH/MM3 9.6 TH/MM3 Red Blood Count 4.70 MIL/MM3 4.54 MIL/MM3 Hemoglobin 14.0 GM/DL 13.9 GM/DL Hematocrit 42.6 % 41.0 % Mean Corpuscular Volume 90.7 FL 90.4 FL Mean Corpuscular Hemoglobin 29.8 PG 30.8 PG Mean Corpuscular Hemoglobin 32.9 % 34.0 % Concent Red Cell Distribution Width 14.0 % 13.8 % Platelet Count 396 TH/MM3 403 TH/MM3 Mean Platelet Volume 7.7 FL 7.9 FL Neutrophils (%) (Auto) 82.1 % 61.3 % Lymphocytes (%) (Auto) 10.3 % 23.4 % Monocytes (%) (Auto) 6.7 % 14.7 % Eosinophils (%) (Auto) 0.8 % 0.5 % Basophils (%) (Auto) 0.1 % 0.1 % Neutrophils # (Auto) 7.5 TH/MM3 5.9 TH/MM3 Lymphocytes # (Auto) 0.9 TH/MM3 2.3 TH/MM3 Monocytes # (Auto) 0.6 TH/MM3 1.4 TH/MM3 Eosinophils # (Auto) 0.1 TH/MM3 0.0 TH/MM3 Basophils # (Auto) 0.0 TH/MM3 0.0 TH/MM3 CBC Comment DIFF FINAL DIFF FINAL Differential Comment Sodium Level 128 MEQ/L 128 MEQ/L Potassium Level 3.8 MEQ/L 3.9 MEQ/L Chloride Level 93 MEQ/L 92 MEQ/L Carbon Dioxide Level 26.1 MEQ/L 26.8 MEQ/L Anion Gap 9 MEQ/L 9 MEQ/L Blood Urea Nitrogen 4 MG/DL 5 MG/DL Creatinine 0.38 MG/DL 0.36 MG/DL Estimat Glomerular Filtration 167 ML/MIN 178 ML/MIN Rate Random Glucose 99 MG/DL 86 MG/DL Calcium Level 8.3 MG/DL 8.2 MG/DL Phosphorus Level 2.4 MG/DL Magnesium Level 2.0 MG/DL Total Bilirubin 0.4 MG/DL 0.4 MG/DL Aspartate Amino Transf 10 U/L 10 U/L (AST/SGOT) Alanine Aminotransferase 19 U/L 17 U/L (ALT/SGPT) Alkaline Phosphatase 64 U/L 58 U/L Total Protein 6.6 GM/DL 6.3 GM/DL Albumin 3.4 GM/DL 3.2 GM/DL Physical Exam General General Appearance: No Acute Distress, Comfortable Eyes Eye Exam: Pupils Equal, Pupils Reactive, Sclera White, Extraocular Movement Intact Throat Throat Exam: Oral Mucosa [place] & Moist, Oral Pharynx Normal Neck Neck Exam: Neck Supple, Trachea Midline Pulmonary Resp Exam: Clear Bilaterally, Breath Sounds Equal, No Distress Cardiology CV Exam: Regular, Normal Sinus Rhythm Musculoskeletal MS Exam: Joints Intact, Normal Tone Integumentary Skin Exam: Clear, Warm, Dry Extremeties Extremities Exam: No Edema Neurologic Neuro Exam: Alert, Awake, Oriented, Speech Clear, Moving All Extremities, No Focal Deficits Psychiatric Psych Exam: Appropriate Responses VTE Prophylaxis VTE Prophylaxis Device: SCDs PUD Prophylasis PUD Prophylaxis: Protonix Assessment/Plan Problem List: (1) Hyponatremia (2) Delirium (3) Hypokalemia (4) COPD (chronic obstructive pulmonary disease) (5) Tobacco abuse (6) Hypothyroid (7) Hypertension Assessment/Plan ASSESSMENT 1. Altered mental status metabolic encephalopathy secondary to hyponatremia, electrolyte imbalance and alcohol EtOH less likely withdrawal... resolved. 2. EtOH dependence 3. Chronic nicotine abuse... on nicotine Patch. 4. Seizure disorder. 5. COPD exacerbation on admission...better now 6. Hypertension uncontrolled on admission. 7. Severe hyponatremia...will monitor. 8. Severe hypokalemia/Hypophosphatemia will replace and monitor. 9. Hypothyroidism with increase TSH level on admission. increased dose of levothyroxine. PLAN/RECOMMENDATIONS We will monitor sodium, potassium, magnasium and phosphorous level. Continue IV hydration. Phosphorous is low we will replace. Continue on IV steroids and nebulizer treatments. Keep on oxygen and keep oxygen saturation above 90%. Monitor blood pressure. Keep her on a p.r.n. basis medication for high blood pressure. 8. Watch for alcohol withdrawal. Keep her on meds to prevent withdrawal. 9. Labs in morning. CBC with diff CMP in AM. Discussed Condition with: Patient Problem Qualifiers (1) COPD (chronic obstructive pulmonary disease): Qualified Code: J44.1 - Chronic obstructive pulmonary disease with acute exacerbation Mckay Velarde MD Dec 24, 2016 08:16
[2016-12-24] MEDS: SERTRALINE HCL 100 MG TAB PO SCH (08:33)
[2016-12-24] MEDS: amLODIPine BESYLATE 5 MG TAB PO SCH (08:33)
[2016-12-24] MEDS: THIAMINE HCL 100 MG TAB PO SCH (08:34)
[2016-12-24] MEDS: LISINOPRIL 10 MG TAB PO SCH (08:34)
[2016-12-24] MEDS: LISINOPRIL 20 MG TAB PO SCH (08:34)
[2016-12-24] MEDS: MULTIVITAMINS/MINERALS THERAPEUTIC TAB PO SCH (08:34)
[2016-12-24] MEDS: PANTOPRAZOLE SOD 40 MG DELAYED RELEASE TAB PO SCH (08:35)
[2016-12-24] MEDS: DOCUSATE SODIUM 100 MG CAP PO SCH ×2 (08:35→21:00)
[2016-12-24] MEDS: FOLIC ACID 1 MG TAB PO SCH (08:35)
[2016-12-24] MEDS: NICOTINE 21 MG/24 HR PATCH TD SCH (08:36)
[2016-12-24] MEDS: ENOXAPARIN SODIUM 40 MG/0.4 ML SYRINGE SQ SCH (08:36)
[2016-12-24] MEDS ORDERED: SODIUM PHOSPHATE INJ 30 MMOL in SODIUM CHLOR 0.9% 250 ML INJ 240 ML IV ONE (10:00)
[2016-12-24] MEDS: REMOVE OLD NICODERM (NICOTINE) PATCH TD SCH (21:00)
[2016-12-25] VITALS (8 sets, daily range): BP systolic 150–172; BP diastolic 80–98; PULSE 80–108; RESP 16–22; TEMP 96.5–98; O2SAT 93–97
[2016-12-25] MEDS: CHLORHEXIDINE GLUCONATE 2 % 1 PACK (2 CLOTHS) TOP SCH (03:03)
[2016-12-25] MEDS: LORazepam 1 MG TAB PO PRN ×2 (03:47→19:51)
[2016-12-25] MEDS: NS + KCL 40 MEQ INJ 1,000 ML IV SCH ×2 (03:51→17:09)
[2016-12-25] MEDS: LEVOTHYROXINE SODIUM 100 MCG TAB PO SCH (05:23)
[2016-12-25] MEDS: methylPREDNISolone SOD SUCC 125 MG/2 ML VIAL IV PUSH SCH ×2 (05:24→17:08)
[2016-12-25 06:27] LABS: BASOPHIL % 0.3 % (0.0-2.0); EOSINOPHIL % 0.1 % (0.0-4.0); HEMATOCRIT 37.7 % (35.0-46.0); HEMO FLAGS DIFF FINAL; LYMPH % 23.5 % (9.0-44.0); LYMPHOCYTE # 2.3 TH/MM3 (1.0-4.8); MEAN CELL VOLUME 90.9 FL (80.0-100.0); MEAN CORPUSCULAR HEMOGLOBIN 30.2 PG (27.0-34.0); MEAN CORPUSCULAR HGB CONC 33.2 % (32.0-36.0); MONO % 15.2 % (0.0-8.0); NEUT % 60.9 % (16.0-70.0); PLATELET COUNT 424 TH/MM3 (150-450); RED BLOOD COUNT 4.15 MIL/MM3 (4.00-5.30); RED CELL DISTRIBUTION WIDTH 13.6 % (11.6-17.2); WHITE BLOOD COUNT 9.8 TH/MM3 (4.0-11.0)
[2016-12-25 06:40] LABS: CHLORIDE 95 MEQ/L (98-107); POTASSIUM 3.8 MEQ/L (3.5-5.1); SODIUM (NA) 131 MEQ/L (136-145)
[2016-12-25 06:44] LABS: ANION GAP 8 MEQ/L (5-15); BICARBONATE 28.3 MEQ/L (21.0-32.0); BLOOD UREA NITROGEN 5 MG/DL (7-18)
[2016-12-25 06:47] LABS: ALT (GPT) 19 U/L (10-53); AST (GOT) 7 U/L (15-37); GLOMERULAR FILTRATION RATE 190 ML/MIN (>89)
[2016-12-25 06:48] LABS: TOTAL BILIRUBIN ADULT 0.3 MG/DL (0.2-1.0)
[2016-12-25 06:50] LABS: ALKALINE PHOSPHATASE 49 U/L (45-117)
[2016-12-25] MEDS: RESP: ALBUTEROL 2.5 MG/IPRATROPIUM 0.5 MG NEB (SCH) INH ×4 (07:55→20:00)
--- NOTE | 2016-12-25 08:19 | HHI.PR ---
Subjective History of Present Illness Patient feel better . have low sodium and phosphorous will replace and monitor. D/W JORDYN Willis . wants to go home. . no acute issue Review of Systems Constitutional Constitutional: Fatigue, Weakness Vitals/Results Intake & Output 12/24/16 12/24/16 12/25/16 15:00 23:00 07:00 Intake Total 870 ml 1320 ml 240 ml Balance 870 ml 1320 ml 240 ml Intake Oral 870 ml 720 ml 240 ml IV Total 600 ml # Voids 5 3 6 # Bowel Movements 0 Vital Signs Vital Signs Date Time Temp Pulse Resp B/P Pulse Ox O2 Delivery O2 Flow Rate FiO2 12/25/16 07:56 95 Nasal Cannula 2.00 12/25/16 04:00 97.1 104 18 165/92 12/25/16 00:00 97.0 108 18 172/84 93 12/24/16 20:35 94 21 12/24/16 20:00 97 12/24/16 20:00 98.7 105 18 156/91 96 12/24/16 20:00 Nasal Cannula 2.00 12/24/16 16:00 98.0 102 20 144/66 99 12/24/16 12:00 97.5 96 20 115/74 98 12/24/16 09:30 Nasal Cannula 2.00 CBC/BMP: 12/25/16 0530 12/25/16 0530 Lab Results Laboratory Tests Test 12/25/16 05:30 White Blood Count 9.8 TH/MM3 Red Blood Count 4.15 MIL/MM3 Hemoglobin 12.5 GM/DL Hematocrit 37.7 % Mean Corpuscular Volume 90.9 FL Mean Corpuscular Hemoglobin 30.2 PG Mean Corpuscular Hemoglobin 33.2 % Concent Red Cell Distribution Width 13.6 % Platelet Count 424 TH/MM3 Mean Platelet Volume 7.6 FL Neutrophils (%) (Auto) 60.9 % Lymphocytes (%) (Auto) 23.5 % Monocytes (%) (Auto) 15.2 % Eosinophils (%) (Auto) 0.1 % Basophils (%) (Auto) 0.3 % Neutrophils # (Auto) 6.0 TH/MM3 Lymphocytes # (Auto) 2.3 TH/MM3 Monocytes # (Auto) 1.5 TH/MM3 Eosinophils # (Auto) 0.0 TH/MM3 Basophils # (Auto) 0.0 TH/MM3 CBC Comment DIFF FINAL Differential Comment Sodium Level 131 MEQ/L Potassium Level 3.8 MEQ/L Chloride Level 95 MEQ/L Carbon Dioxide Level 28.3 MEQ/L Anion Gap 8 MEQ/L Blood Urea Nitrogen 5 MG/DL Creatinine 0.34 MG/DL Estimat Glomerular Filtration 190 ML/MIN Rate Random Glucose 82 MG/DL Calcium Level 7.7 MG/DL Total Bilirubin 0.3 MG/DL Aspartate Amino Transf 7 U/L (AST/SGOT) Alanine Aminotransferase 19 U/L (ALT/SGPT) Alkaline Phosphatase 49 U/L Total Protein 5.8 GM/DL Albumin 2.9 GM/DL Physical Exam General General Appearance: No Acute Distress, Comfortable Eyes Eye Exam: Pupils Equal, Pupils Reactive, Sclera White, Extraocular Movement Intact Throat Throat Exam: Oral Mucosa [place] & Moist, Oral Pharynx Normal Neck Neck Exam: Neck Supple, Trachea Midline Pulmonary Resp Exam: Clear Bilaterally, Breath Sounds Equal, No Distress Cardiology CV Exam: Regular, Normal Sinus Rhythm Musculoskeletal MS Exam: Joints Intact, Normal Tone Integumentary Skin Exam: Clear, Warm, Dry Extremeties Extremities Exam: No Edema Neurologic Neuro Exam: Alert, Awake, Oriented, Speech Clear, Moving All Extremities, No Focal Deficits Psychiatric Psych Exam: Appropriate Responses VTE Prophylaxis VTE Prophylaxis Device: SCDs PUD Prophylasis PUD Prophylaxis: Protonix Assessment/Plan Problem List: (1) Hyponatremia (2) Delirium (3) Hypokalemia (4) COPD (chronic obstructive pulmonary disease) (5) Tobacco abuse (6) Hypothyroid (7) Hypertension Assessment/Plan ASSESSMENT 1. Altered mental status metabolic encephalopathy secondary to hyponatremia, electrolyte imbalance and alcohol EtOH less likely withdrawal... resolved. 2. EtOH dependence 3. Chronic nicotine abuse... on nicotine Patch. 4. Seizure disorder. 5. COPD exacerbation on admission...better now 6. Hypertension uncontrolled on admission. 7. Severe hyponatremia...will monitor. 8. Severe hypokalemia/Hypophosphatemia will replace and monitor. 9. Hypothyroidism with increase TSH level on admission. on levothyroxine. PLAN/RECOMMENDATIONS We will monitor sodium, potassium, magnasium and phosphorous level. Continue IV hydration. Phosphorous is low we will replace. Continue on IV steroids and nebulizer treatments. Keep on oxygen and keep oxygen saturation above 90%. Monitor blood pressure. Keep her on a p.r.n. basis medication for high blood pressure. 8. Watch for alcohol withdrawal. Keep her on meds to prevent withdrawal. 9. Labs in morning. CBC with diff CMP in AM. Discussed Condition with: Patient Problem Qualifiers (1) COPD (chronic obstructive pulmonary disease): Qualified Code: J44.1 - Chronic obstructive pulmonary disease with acute exacerbation Mckay Velarde MD Dec 25, 2016 08:19 Mckay Velarde MD Dec 25, 2016 08:19
[2016-12-25] MEDS: LISINOPRIL 10 MG TAB PO SCH (08:39)
[2016-12-25] MEDS: LISINOPRIL 20 MG TAB PO SCH (08:39)
[2016-12-25] MEDS: THIAMINE HCL 100 MG TAB PO SCH (08:39)
[2016-12-25] MEDS: PANTOPRAZOLE SOD 40 MG DELAYED RELEASE TAB PO SCH (08:39)
[2016-12-25] MEDS: amLODIPine BESYLATE 5 MG TAB PO SCH (08:39)
[2016-12-25] MEDS: SERTRALINE HCL 100 MG TAB PO SCH (08:39)
[2016-12-25] MEDS: DOCUSATE SODIUM 100 MG CAP PO SCH ×2 (08:39→20:07)
[2016-12-25] MEDS: ENOXAPARIN SODIUM 40 MG/0.4 ML SYRINGE SQ SCH (08:40)
[2016-12-25] MEDS: SODIUM CHLORIDE 0.9% FLUSH 5 ML FLUSH IV FLUSH SCH ×4 (08:40→20:07)
[2016-12-25] MEDS: NICOTINE 21 MG/24 HR PATCH TD SCH (08:40)
[2016-12-25 18:47] LABS: MAGNESIUM 1.8 MG/DL (1.5-2.5)
[2016-12-25] MEDS: REMOVE OLD NICODERM (NICOTINE) PATCH TD SCH (20:08)
[2016-12-25] MEDS: LORazepam 2 MG/ML VIAL IV PUSH PRN (23:10)
[2016-12-26] VITALS: BP 161/91; PULSE 105; RESP 20; TEMP 97; O2SAT 96
[2016-12-26 04:00] VITALS: BP 175/96; PULSE 97; RESP 19; TEMP 96.8; O2SAT 95
[2016-12-26] MEDS: CHLORHEXIDINE GLUCONATE 2 % 1 PACK (2 CLOTHS) TOP SCH (04:00)
[2016-12-26] MEDS: LEVOTHYROXINE SODIUM 100 MCG TAB PO SCH (05:43)
[2016-12-26] MEDS: methylPREDNISolone SOD SUCC 125 MG/2 ML VIAL IV PUSH SCH (05:44)
[2016-12-26] MEDS: NS + KCL 40 MEQ INJ 1,000 ML IV SCH (06:05)
[2016-12-26 06:42] LABS: AUTOMATED NEUTROPHIL # 5.5 TH/MM3 (1.8-7.7); BASOPHIL % 0.1 % (0.0-2.0); EOSINOPHIL % 0.1 % (0.0-4.0); HEMATOCRIT 37.3 % (35.0-46.0); HEMO FLAGS DIFF FINAL; LYMPH % 30.1 % (9.0-44.0); MEAN CELL VOLUME 90.3 FL (80.0-100.0); MEAN CORPUSCULAR HEMOGLOBIN 30.6 PG (27.0-34.0); MEAN CORPUSCULAR HGB CONC 33.9 % (32.0-36.0); MONO % 15.4 % (0.0-8.0); NEUT % 54.3 % (16.0-70.0); PLATELET COUNT 442 TH/MM3 (150-450); RED BLOOD COUNT 4.14 MIL/MM3 (4.00-5.30); RED CELL DISTRIBUTION WIDTH 13.1 % (11.6-17.2)
[2016-12-26 06:52] LABS: CHLORIDE 91 MEQ/L (98-107); POTASSIUM 3.6 MEQ/L (3.5-5.1); SODIUM (NA) 131 MEQ/L (136-145)
[2016-12-26 06:56] LABS: ANION GAP 11 MEQ/L (5-15); BICARBONATE 28.8 MEQ/L (21.0-32.0)
[2016-12-26 06:57] LABS: BLOOD UREA NITROGEN 3 MG/DL (7-18)
[2016-12-26 06:59] LABS: ALT (GPT) 21 U/L (10-53)
[2016-12-26 07:00] LABS: AST (GOT) 8 U/L (15-37); GLOMERULAR FILTRATION RATE 167 ML/MIN (>89)
[2016-12-26 07:01] LABS: TOTAL BILIRUBIN ADULT 0.3 MG/DL (0.2-1.0)
[2016-12-26 07:02] LABS: ALKALINE PHOSPHATASE 46 U/L (45-117)
[2016-12-26] MEDS: DOCUSATE SODIUM 100 MG CAP PO SCH (07:24)
[2016-12-26] MEDS: LISINOPRIL 10 MG TAB PO SCH (07:24)
[2016-12-26] MEDS: SERTRALINE HCL 100 MG TAB PO SCH (07:25)
[2016-12-26] MEDS: THIAMINE HCL 100 MG TAB PO SCH (07:25)
[2016-12-26] MEDS: LISINOPRIL 20 MG TAB PO SCH (07:25)
[2016-12-26] MEDS: amLODIPine BESYLATE 5 MG TAB PO SCH (07:25)
[2016-12-26] MEDS: LORazepam 1 MG TAB PO PRN (07:25)
[2016-12-26] MEDS: ENOXAPARIN SODIUM 40 MG/0.4 ML SYRINGE SQ SCH (07:25)
[2016-12-26] MEDS: PANTOPRAZOLE SOD 40 MG DELAYED RELEASE TAB PO SCH (07:25)
[2016-12-26] MEDS: SODIUM CHLORIDE 0.9% FLUSH 5 ML FLUSH IV FLUSH SCH ×2 (07:26)
[2016-12-26 08:00] VITALS: BP 157/91; PULSE 101; PULSE 89; RESP 18; TEMP 98.7; O2SAT 95
[2016-12-26] MEDS: RESP: ALBUTEROL 2.5 MG/IPRATROPIUM 0.5 MG NEB (SCH) INH (08:00)
[2016-12-26 08:08] VITALS: O2SAT 93
--- NOTE | 2016-12-26 08:12 | HHI.PR ---
Subjective History of Present Illness Patient feel better . have low sodium and phosphorous will replace and monitor. D/W JORDYN Willis . wants to go home. . OK to DC home today. Review of Systems Constitutional Constitutional: Fatigue, Weakness Vitals/Results Intake & Output 12/25/16 12/25/16 12/26/16 15:00 23:00 07:00 Intake Total 1800 ml 720 ml Balance 1800 ml 720 ml Intake Oral 1200 ml 720 ml IV Total 600 ml # Voids 16 6 # Bowel Movements 0 0 Vital Signs Vital Signs Date Time Temp Pulse Resp B/P Pulse Ox O2 Delivery O2 Flow Rate FiO2 12/26/16 08:08 93 Nasal Cannula 2.00 12/26/16 04:00 96.8 97 19 175/96 95 12/26/16 00:00 97.0 105 20 161/91 96 12/25/16 20:20 94 Nasal Cannula 2.00 12/25/16 20:00 96.5 102 22 158/81 97 12/25/16 20:00 96 12/25/16 19:32 Nasal Cannula 2.00 12/25/16 16:00 98.0 80 18 150/80 96 12/25/16 12:00 97.8 80 16 160/ 96 12/25/16 08:30 Nasal Cannula 2.00 21 CBC/BMP: 12/26/16 0540 12/26/16 0540 Lab Results Laboratory Tests Test 12/26/16 05:40 White Blood Count 10.0 TH/MM3 Red Blood Count 4.14 MIL/MM3 Hemoglobin 12.6 GM/DL Hematocrit 37.3 % Mean Corpuscular Volume 90.3 FL Mean Corpuscular Hemoglobin 30.6 PG Mean Corpuscular Hemoglobin 33.9 % Concent Red Cell Distribution Width 13.1 % Platelet Count 442 TH/MM3 Mean Platelet Volume 7.5 FL Neutrophils (%) (Auto) 54.3 % Lymphocytes (%) (Auto) 30.1 % Monocytes (%) (Auto) 15.4 % Eosinophils (%) (Auto) 0.1 % Basophils (%) (Auto) 0.1 % Neutrophils # (Auto) 5.5 TH/MM3 Lymphocytes # (Auto) 3.0 TH/MM3 Monocytes # (Auto) 1.5 TH/MM3 Eosinophils # (Auto) 0.0 TH/MM3 Basophils # (Auto) 0.0 TH/MM3 CBC Comment DIFF FINAL Differential Comment Sodium Level 131 MEQ/L Potassium Level 3.6 MEQ/L Chloride Level 91 MEQ/L Carbon Dioxide Level 28.8 MEQ/L Anion Gap 11 MEQ/L Blood Urea Nitrogen 3 MG/DL Creatinine 0.38 MG/DL Estimat Glomerular Filtration 167 ML/MIN Rate Random Glucose 80 MG/DL Calcium Level 8.5 MG/DL Total Bilirubin 0.3 MG/DL Aspartate Amino Transf 8 U/L (AST/SGOT) Alanine Aminotransferase 21 U/L (ALT/SGPT) Alkaline Phosphatase 46 U/L Total Protein 5.9 GM/DL Albumin 3.0 GM/DL Physical Exam General General Appearance: No Acute Distress, Comfortable Eyes Eye Exam: Pupils Equal, Pupils Reactive, Sclera White, Extraocular Movement Intact Throat Throat Exam: Oral Mucosa [place] & Moist, Oral Pharynx Normal Neck Neck Exam: Neck Supple, Trachea Midline Pulmonary Resp Exam: Clear Bilaterally, Breath Sounds Equal, No Distress Cardiology CV Exam: Regular, Normal Sinus Rhythm Musculoskeletal MS Exam: Joints Intact, Normal Tone Integumentary Skin Exam: Clear, Warm, Dry Extremeties Extremities Exam: No Edema Neurologic Neuro Exam: Alert, Awake, Oriented, Speech Clear, Moving All Extremities, No Focal Deficits Psychiatric Psych Exam: Appropriate Responses VTE Prophylaxis VTE Prophylaxis Device: SCDs PUD Prophylasis PUD Prophylaxis: Protonix Assessment/Plan Problem List: (1) Hyponatremia (2) Delirium (3) Hypokalemia (4) COPD (chronic obstructive pulmonary disease) (5) Tobacco abuse (6) Hypothyroid (7) Hypertension Assessment/Plan ASSESSMENT 1. Altered mental status metabolic encephalopathy secondary to hyponatremia, electrolyte imbalance and alcohol EtOH less likely withdrawal... resolved. 2. EtOH dependence 3. Chronic nicotine abuse... on nicotine Patch. 4. Seizure disorder. 5. COPD exacerbation on admission...better now 6. Hypertension uncontrolled on admission. 7. Severe hyponatremia...will monitor. 8. Severe hypokalemia/Hypophosphatemia will replace and monitor. 9. Hypothyroidism with increase TSH level on admission. on levothyroxine. PLAN/RECOMMENDATIONS We will monitor sodium, potassium, magnasium and phosphorous level. Continue IV hydration. Phosphorous is low replaced. Continue on IV steroids and nebulizer treatments. Keep on oxygen and keep oxygen saturation above 90%. Monitor blood pressure. Keep her on a p.r.n. basis medication for high blood pressure. 8. Watch for alcohol withdrawal. Keep her on meds to prevent withdrawal. OK to DC Home today patient refused HHC. F/ U WITH PCP 2-3 days. Discussed Condition with: Patient Problem Qualifiers (1) COPD (chronic obstructive pulmonary disease): Qualified Code: J44.1 - Chronic obstructive pulmonary disease with acute exacerbation Mckay Velarde MD Dec 26, 2016 08:12
[2016-12-26] MEDS ORDERED: VITA100T2 PO (08:18)
[2016-12-26] MEDS ORDERED: LEVO.1 PO (08:18)
[2016-12-26] MEDS ORDERED: CLON0.1T PO (08:20)
--- NOTE | 2016-12-30 07:47 | MD ---
cc: MCKAY [place] MD ADMISSION DATE: 12/19/2016 DISCHARGE DATE: 12/26/2016 DISPOSITION Okay to discharge the patient home. CONDITION AT THE TIME OF DISCHARGE Satisfactory. ACTIVITY As tolerated. DIET Cardiac diet. ALLERGIES CODEINE. OXYCONTIN. PERCOCET. DISCHARGE MEDICATIONS 1. Clonidine 0.1 mg p.o. b.i.d. 2. Levothyroxine 100 mcg p.o. daily. 3. Thiamine 100 mg p.o. daily. 4. Amlodipine/benazepril 5/10 p.o. daily. 5. Lisinopril 20 mg p.o. daily. 6. Sertraline 100 mg p.o. daily. 7. Temazepam 50 mg p.o. at bedtime. FOLLOWUP The patient advised to follow up with PCP in 2-3 days. ADMISSION DIAGNOSES 1. Altered mental status secondary to metabolic encephalopathy secondary to hyponatremia, electrolyte imbalance, less likely alcohol withdrawal. 2. Alcohol dependence. 3. Chronic nicotine abuse. 4. Seizure disorder. 5. COPD exacerbation on admission. 6. Hypertension. 7. Severe hyponatremia. 8. Severe hypokalemia and hypophosphatemia and hypomagnesemia. HOSPITAL COURSE This is a 71-year-old female admitted with altered mental status secondary to metabolic encephalopathy. The patient also had delirium. The also had COPD exacerbation. The patient was managed with nebulization in the hospital. The patient's condition gradually improved. The patient remained stable during the hospital stay. The patient was discharged in satisfactory condition. The patient was to follow up with PCP in 2-3 days. The patient had chest x-ray done, shows nothing acute. The patient's influenza A and B antigen was negative. The patient had a sodium of 131 at the time of discharge; potassium was 3.6, calcium was 8.5, phosphorus was 3.1, magnesium was 1.7. The patient remained stable. No acute event happened. The patient was discharged in satisfactory condition. Further details in the medical record. Mckay yN MD EA/OMARI /6:44 AM /7:41 AM
== END 2016-12-26 10:45 | disposition home or self-care (01) | DRG 190 ==
LOC: PHED 17:54 → PHEDA 21:31 → PHICU 23:09 → PH3B 12-23 17:12
PROVIDERS: ADMIT Emergency Medicine; ATTEND Emergency Medicine
DX: J44.1 Chronic obstructive pulmonary disease with (acute) exacerbation (principal); G93.41 Metabolic encephalopathy; E87.1 Hypo-osmolality and hyponatremia; E83.39 Other disorders of phosphorus metabolism; E86.0 Dehydration; I10 Essential (primary) hypertension; J45.909 Unspecified asthma, uncomplicated; E87.6 Hypokalemia; F17.210 Nicotine dependence, cigarettes, uncomplicated; E03.9 Hypothyroidism, unspecified; Z88.5 Allergy status to narcotic agent; M54.5 Low back pain; F10.20 Alcohol dependence, uncomplicated
CPT/HCPCS: 71010; 80048; 80053; 82550; 82552; 82570; 82948; 83735; 83880; 83930; 83935; 84100; 84132; 84295; 84300; 84443; 84484; 84560; 85025; 85610; 85730; 87641; 87804; 93005; 93306; 94640; 94664; 96365; 96375; C9113; J1630; J1650; J1815; J2060; J2405; J2930; J3475; J3480; J7030; J7050

== ENCOUNTER 2017-01-24 05:38 | Inpatient (IN) | payer MEDICARE, MEDICAID ==
[2017-01-24] VITALS (11 sets, daily range): BP systolic 110–158; BP diastolic 6–77; PULSE 85–124; RESP 18–26; TEMP 97.9–98.2; O2SAT 92–99
[~2017-01-24] VITALS: Ht 162.6 cm; Wt 56.6 kg
[~2017-01-24 05:38] MED LIST changes: +CLON0.1T PO; -LEVO.075 PO; +LEVO.1 PO; +VITA100T2 PO
[2017-01-24] MEDS ORDERED: RESP: ALBUTEROL 2.5 MG/IPRATROPIUM 0.5 MG NEB (SCH) NEB ONE ×2 (06:00→06:15)
[2017-01-24] MEDS ORDERED: SODIUM CHLORIDE 0.9% FLUSH 10 ML FLUSH IVF PRN ×2 (06:00→07:15)
--- NOTE | 2017-01-24 06:01 | PD ---
HPI Chief Complaint: AMS Time Seen by Provider: 05:55 Travel History International Travel<30 days: No Contact w/Intl Traveler<30days: No Traveled to known affect area: No History of Present Illness HPI 71-year-old female presents to the emergency department by private transportation the care of her daughter for evaluation of altered mental status and shortness of breath. According to the daughter she has not been herself approximate 5 days and has had increasing altered mental status and shortness of breath 2 days. Patient has history of COPD as well as previous hyponatremia and hypokalemia. Patient is also had a fall within the past 2 weeks that she does not report recall that his had facial bruising. Patient and family do not report any new balance disturbance or identify facial or upper or lower extremity numbness tingling or weakness. Patient's had no recent febrile illness. Patient continues to smoke cigarettes and drink alcohol. Because of patient's ongoing symptoms and deterioration of mentation daughter sided to the emergency department this time. No report of vomiting diarrhea or urinary symptoms. Patient has extensive past history that includes hypertension hypothyroidism anxiety depression COPD seizure disorder alcohol dependence neck obtained abuse hyponatremia hypokalemia hypophosphatemia and hypomagnesemia. PFSH Past Medical History Narrative Medical hypertension hypothyroidism anxiety depression COPD seizure disorder alcohol dependence tobacco abuse hyponatremia hypokalemia hypophosphatemia and hypomagnesemia. Nursing notes reviewed Hx Anticoagulant Therapy: Yes (81MG ASA) Asthma: Yes (bronchitis) Blood Disorders: No Anxiety: Yes Depression: Yes Heart Rhythm Problems: No Cancer: No Cardiovascular Problems: Yes High Cholesterol: No Chemotherapy: No Chest Pain: No Congestive Heart Failure: No COPD: Yes Cerebrovascular Accident: No Diabetes: No Diminished Hearing: No Endocrine: Yes Gastrointestinal Disorders: No GERD: No Genitourinary: Yes Headaches: Yes Hiatal Hernia: No Hypertension: Yes Immune Disorder: No Implanted Vascular Access Dvce: Yes Kidney Stones: No Musculoskeletal: No Neurologic: Yes ("fuzzy feeling".) Psychiatric: Yes Reproductive: No Respiratory: Yes (COPD) Immunizations Current: Yes Migraines: No Radiation Therapy: No Renal Failure: No Seizures: Yes Sleep Apnea: No Thyroid Disease: Yes Ulcer: No PNEUMOCCOCAL Vaccine (Year): 2 Menopausal: Yes Past Surgical History Abdominal Surgery: No AICD: No Arteriovenous Shunt: No Cardiac Surgery: No Ear Surgery: No Endocrine Surgery: No Eye Surgery: No Genitourinary Surgery: No Gynecologic Surgery: Yes (1967 SURGERY TO CORRECT ENDOMETRIOSIS) Hysterectomy: Yes Insulin Pump: No Joint Replacement: No (screws in left hip.) Neurologic Surgery: No Oral Surgery: No Pacemaker: No Thoracic Surgery: No Tonsillectomy: Yes Other Surgery: Yes (LEFT HIP) Social History Alcohol Use: Yes (4 beers daily) Tobacco Use: Yes (1 1/2-2 ppd) Substance Use: No Allergies-Medications (Allergen,Severity, Reaction): Coded Allergies: Codeine (Verified Allergy, Severe, Irritability/Anxiety, 12/19/16) Oxycontin (Verified Allergy, Intermediate, ITCHES, 12/19/16) Percocet (Verified Allergy, Intermediate, ITCHES, 12/19/16) Reported Meds & Prescriptions Reported Meds & Active Scripts Active Clonidine (Clonidine HCl) 0.1 Mg Tab 0.1 Mg PO BID Vitamin B-1 (Thiamine HCl) 100 Mg Tab 100 Mg PO DAILY Synthroid (Levothyroxine Sodium) 100 Mcg Tab 100 Mcg PO DAILY@06 Reported Temazepam 15 Mg Cap 15 Mg PO HS PRN Sertraline (Sertraline HCl) 100 Mg Tab 100 Mg PO DAILY Lisinopril 20 Mg Tab 20 Mg PO DAILY Amlodipine-Benazepril 5-10 Mg Cap 1 Cap PO DAILY Review of Systems ROS Limitations: Clinical Condition, Altered Mental Status, Other: (daughter at bedside) Except as stated in HPI: all other systems reviewed are Neg General / Constitutional: No: Fever HENT: No: Congestion Cardiovascular: No: Chest Pain or Discomfort Respiratory: Positive: Cough, Shortness of Breath Gastrointestinal: No: Vomiting, Abdominal Pain Genitourinary: No: Flank Pain Musculoskeletal: No: Myalgias, Arthralgias Skin: No Rash Neurologic: Positive: Weakness, Dizziness, Change in Mentation, No: Syncope, Focal Abnormalities, Coordination Problem, Paresthesia, Seizures Psychiatric: No: Anxiety Endocrine: No: Heat Intolerance Hematologic/Lymphatic: Positive: Easy Bruising Physical Exam Narrative GENERAL: Well-developed well-nourished disheveled female in mild respiratory distress; gcs 14-15/15 SKIN: Warm and dry. HEAD: Atraumatic. Normocephalic. EYES: Pupils equal and round. No scleral icterus. No injection or drainage. ENT: No nasal bleeding or discharge. Mucous membranes pink and moist. NECK: Trachea midline. No JVD. CARDIOVASCULAR: Regular rate and rhythm. RESPIRATORY: No accessory muscle use. Breath sounds equal bilaterally. Diffuse wheezing GASTROINTESTINAL: Abdomen soft, non-tender, nondistended. Hepatic and splenic margins not palpable. MUSCULOSKELETAL: Extremities without clubbing, cyanosis, or edema. No obvious deformities. NEUROLOGICAL: Awake and alert. No obvious cranial nerve deficits. Motor grossly within normal limits. Five out of 5 muscle strength in the arms and legs. Normal speech. PSYCHIATRIC: Appropriate mood and affect; insight and judgment normal. Data Data Last Documented VS Vital Signs Date Time Temp Pulse Resp B/P Pulse Ox O2 Delivery O2 Flow Rate FiO2 01/24/17 06:32 86 20 158/77 95 Nasal Cannula 2 01/24/17 06:00 98.1 Orders Electrocardiogram (01/24/17 05:55) Ammonia (01/24/17 05:55) Complete Blood Count With Diff (01/24/17 05:55) Comprehensive Metabolic Panel (01/24/17 05:55) Creatine Kinase (Cpk) (01/24/17 05:55) Prothrombin Time / Inr (Pt) (01/24/17 05:55) Act Partial Throm Time (Ptt) (01/24/17 05:55) Troponin I (01/24/17 05:55) Thyroid Stimulating Hormone (01/24/17 05:55) Urinalysis - C+S If Indicated (01/24/17 05:55) Blood Culture (01/24/17 05:55) Chest, Single Ap (01/24/17 05:55) Ct Brain W/O Iv Contrast(Rout) (01/24/17 05:55) Blood Glucose (01/24/17 05:55) Ecg Monitoring (01/24/17 05:55) Iv Access Insert/Monitor (01/24/17 05:55) Oximetry (01/24/17 05:55) Sodium Chloride 0.9% Flush (Ns Flush) (01/24/17 06:00) Sodium Chlor 0.9% 1000 Ml Inj (Ns 1000 M (01/24/17 05:55) Drug Screen, Random Urine (01/24/17 05:55) Alcohol (Ethanol) (01/24/17 05:55) Albuterol-Ipratropium Neb (Duoneb Neb) (01/24/17 06:00) Magnesium (Mg) (01/24/17 05:55) Lactic Acid (01/24/17 06:01) Methylprednisolone So Succ Inj (Solumedr (01/24/17 06:15) Albuterol-Ipratropium Neb (Duoneb Neb) (01/24/17 06:15) Potassium Chloride (Kcl) (01/24/17 06:45) Potassium Chlor 10 Meq Premix (Kcl 10 Me (01/24/17 06:45) Admit Order (Ed Use Only) (01/24/17 ) ^ Saline Lock (01/24/17 07:14) Resp Oxygen Sivakumar C Titrat 1-4 L (01/24/17 ) ^ Notify Dr: Other (01/24/17 07:14) Sodium Chloride 0.9% Flush (Ns Flush) (01/24/17 09:00) Sodium Chloride 0.9% Flush (Ns Flush) (01/24/17 07:15) Labs Laboratory Tests Test 01/24/17 06:00 White Blood Count 8.1 TH/MM3 Red Blood Count 4.48 MIL/MM3 Hemoglobin 13.7 GM/DL Hematocrit 40.3 % Mean Corpuscular Volume 90.1 FL Mean Corpuscular Hemoglobin 30.7 PG Mean Corpuscular Hemoglobin 34.1 % Concent Red Cell Distribution Width 12.7 % Platelet Count 524 TH/MM3 Mean Platelet Volume 7.2 FL Neutrophils (%) (Auto) 61.9 % Lymphocytes (%) (Auto) 21.2 % Monocytes (%) (Auto) 12.9 % Eosinophils (%) (Auto) 1.0 % Basophils (%) (Auto) 3.0 % Neutrophils # (Auto) 5.1 TH/MM3 Lymphocytes # (Auto) 1.7 TH/MM3 Monocytes # (Auto) 1.0 TH/MM3 Eosinophils # (Auto) 0.1 TH/MM3 Basophils # (Auto) 0.2 TH/MM3 CBC Comment DIFF FINAL Differential Comment Prothrombin Time 10.7 SEC Prothromb Time International 1.0 RATIO Ratio Activated Partial 24.6 SEC Thromboplast Time Sodium Level 120 MEQ/L Potassium Level 2.8 MEQ/L Chloride Level 80 MEQ/L Carbon Dioxide Level 29.2 MEQ/L Anion Gap 11 MEQ/L Blood Urea Nitrogen 1 MG/DL Creatinine 0.50 MG/DL Estimat Glomerular Filtration 122 ML/MIN Rate Random Glucose 83 MG/DL Lactic Acid Level 2.2 mmol/L Calcium Level 8.6 MG/DL Magnesium Level 1.7 MG/DL Total Bilirubin 0.2 MG/DL Aspartate Amino Transf 18 U/L (AST/SGOT) Alanine Aminotransferase 24 U/L (ALT/SGPT) Alkaline Phosphatase 92 U/L Ammonia 22 MCMOL/L Total Creatine Kinase 92 U/L Troponin I LESS THAN 0.02 NG/ML Total Protein 7.5 GM/DL Albumin 3.7 GM/DL Thyroid Stimulating Hormone 3.010 uIU/ML 3rd Gen Ethyl Alcohol Level LESS THAN 3 MG/DL [facility] Medical Decision Making Medical Screen Exam Complete: Yes Emergency Medical Condition: Yes Medical Record Reviewed: Yes Interpretation(s) EKG: Normal sinus rhythm rate [address] T changes without ST segment elevation CBC with automated differential: remarkable for thrombocytosis 524,000 platelets and 12.9% monocytosis otherwise values are grossly normal range cxr: No lobar infiltrate hyperinflation per my reading @ 0640 critical --hyponatremia 120, [id number], no seizure --receiving NS 125 cc/hr; hypokalemia 2.8 -- initiated oral potassium and iv potassium replacement ; remaining values grossly normal range TSH: 3.010, values in normal limits CK total 92, not elevated; troponin I less than 0.02, not elevated serum alcohol: 3, not elevated ammonia: 22, wnl, not elevated Lactic acid: mildly elevated at 2.2 CT brain w/o: no acute bleed noted Differential Diagnosis Altered mental status, CHI, ICH, metabolic encephalopathy, hyperammonemia, alcohol ingestion, electrolyte disturbance with prior hyponatremia and hypokalemia, arrhythmia, ACS, exacerbation COPD, hypoxemia, hypercarbia, thyroid disturbance Narrative Course Patient placed on spar machine operator IV access obtained specimens collected and sent for resulting EKG performed which shows sinus rhythm with nonspecific inferior ST T changes without ST elevation; patient noted to have dyspnea and DuoNeb treatment ordered. Patient initially refused DuoNeb treatments. Patient noted some clinical improvement after one DuoNeb updraft. CBC shows thrombocytosis with mild monocytosis otherwise denies grossly normal range. Patient will require admission for exacerbation COPD and altered mental status. Critical Care Narrative Aggregate critical care time was 35 minutes. Time to perform other separately billable procedures was not included in the critical care time. My time did not include minutes spent treating any other patients simultaneously or on activities that did not directly contribute to the patient's treatment. The services I provided to this patient were to treat and/or prevent clinically significant deterioration that could result in: respiratory failure, arrhythmia , metabolic derangement, I provided critical care services requiring my management, as noted below: Chart data review, documentation time, medication orders and management, vital sign assessments/reviewing monitor data, ordering and reviewing lab tests, ordering and interpreting/reviewing x-rays and diagnostic studies, care of the patient and discussion of the patient with the admitting physicians. Physician Communication Physician Communication call placed to service for admission for PCP Dr Bruce --- discussed with Dr Nacho payanit (patient reports last seen by dr Bruce w/i past 6 months) Diagnosis Primary Impression: Altered mental status Qualified Code: R41.0 - Disorientation Additional Impressions: Hypokalemia Hyponatremia COPD (chronic obstructive pulmonary disease) Qualified Code: J44.1 - Chronic obstructive pulmonary disease with acute exacerbation Admitting Information Admitting Physician Requests: it Elaine Jones MD Jan 24, 2017 06:01
[2017-01-24] MEDS ORDERED: methylPREDNISolone SOD SUCC 125 MG/2 ML VIAL IV PUSH ONE (06:15)
[2017-01-24] MEDS: SODIUM CHLOR 0.9% 1000 ML INJ 1,000 ML IV SCH ×2 (06:22→08:51)
[2017-01-24 06:24] LABS: AUTOMATED NEUTROPHIL # 5.1 TH/MM3 (1.8-7.7); BASOPHIL # 0.2 TH/MM3 (0-0.2); EOSINOPHIL # 0.1 TH/MM3 (0-0.4); HEMATOCRIT 40.3 % (35.0-46.0); HEMO FLAGS DIFF FINAL; LYMPH % 21.2 % (9.0-44.0); LYMPHOCYTE # 1.7 TH/MM3 (1.0-4.8); MEAN CELL VOLUME 90.1 FL (80.0-100.0); MEAN CORPUSCULAR HEMOGLOBIN 30.7 PG (27.0-34.0); MEAN CORPUSCULAR HGB CONC 34.1 % (32.0-36.0); MONO % 12.9 % (0.0-8.0); NEUT % 61.9 % (16.0-70.0); PLATELET COUNT 524 TH/MM3 (150-450); RED BLOOD COUNT 4.48 MIL/MM3 (4.00-5.30); RED CELL DISTRIBUTION WIDTH 12.7 % (11.6-17.2); WHITE BLOOD COUNT 8.1 TH/MM3 (4.0-11.0)
--- NOTE | 2017-01-24 06:34 | RADHPO ---
EXAM DATE/TIME: 01/24/2017 06:20 [facility] COMPARISON: CHEST SINGLE AP, December 23, 2016, 10:44. INDICATIONS : Weakness. Syncope. MEDICAL HISTORY : None. SURGICAL HISTORY : None. ENCOUNTER: Initial ACUITY: 1 day PAIN SCORE: 5/10 LOCATION: Bilateral chest FINDINGS: A single view of the chest demonstrates the lungs to be symmetrically aerated without evidence of mas s, infiltrate or effusion. The cardiomediastinal contours are unremarkable. Osseous structures are intact. Old left-sided rib fractures. CONCLUSION: No acute disease. Mark Tesfaye Jr., MD on January 24, 2017 at 6:32 Board Certified Radiologist. This report was verified electronically.
[2017-01-24 06:36] LABS: CHLORIDE 80 MEQ/L (98-107)
[2017-01-24 06:37] LABS: APTT (PATIENT) 24.6 SEC (24.3-30.1); PROTHROMBIN TIME - PATIENT 10.7 SEC (9.8-11.6); SODIUM (NA) 120 MEQ/L (136-145)
[2017-01-24 06:38] LABS: POTASSIUM 2.8 MEQ/L (3.5-5.1)
[2017-01-24] MEDS ORDERED: POTASSIUM CHLORIDE 20 MEQ CONTROLLED RELEASE TAB PO ONE (06:45)
[2017-01-24 06:51] LABS: ALKALINE PHOSPHATASE 92 U/L (45-117); ALT (GPT) 24 U/L (10-53); ANION GAP 11 MEQ/L (5-15); AST (GOT) 18 U/L (15-37); BICARBONATE 29.2 MEQ/L (21.0-32.0); BLOOD UREA NITROGEN 1 MG/DL (7-18); CREATINE KINASE 92 U/L (26-192); GLOMERULAR FILTRATION RATE 122 ML/MIN (>89); MAGNESIUM 1.7 MG/DL (1.5-2.5); TOTAL BILIRUBIN ADULT 0.2 MG/DL (0.2-1.0)
[2017-01-24] MEDS: POTASSIUM CHLOR 10 MEQ PREMIX 100 ML IV SCH ×3 (07:28→10:26)
--- NOTE | 2017-01-24 07:28 | RADHPO ---
EXAM DATE/TIME: 01/24/2017 06:39 [facility] COMPARISON: No previous studies available for comparison. INDICATIONS : Altered mental status. RADIATION DOSE: 59.45 CTDIvol (mGy) MEDICAL HISTORY : Chronic obstructive pulmonary disease. Hypertension. Seizures. SURGICAL HISTORY : None. ENCOUNTER: Initial ACUITY: 1 day PAIN SCALE: 0/10 LOCATION: cranial TECHNIQUE: Multiple contiguous axial images were obtained of the head. Using automated exposure control and adj ustment of the mA and/or kV according to patient size, radiation dose was kept as low as reasonably a chievable to obtain optimal diagnostic quality images. FINDINGS: CEREBRUM: There is mild cerebral atrophy. Mild periventricular white matter low-attenuation is present. Ventric les are normal in size. No evidence of midline shift, mass lesion, hemorrhage or acute infarction. No extra-axial fluid collections are seen. POSTERIOR FOSSA: The cerebellum and brainstem are intact. The 4th ventricle is midline. The cerebellopontine angle i s unremarkable. EXTRACRANIAL: There is mild posterior midline scalp soft tissue swelling. SKULL: The calvaria is intact. No evidence of skull fracture. CONCLUSION: 1. No acute intracranial abnormality is identified. Chronic changes include mild cerebral atrophy and mild periventricular white matter low attenuation characteristic of chronic microvascular ischemia. 2. There is mild posterior midline scalp soft tissue swelling. Salinas Bean MD on January 24, 2017 at 7:24 Board Certified Radiologist. This report was verified electronically.
[2017-01-24 07:29] LABS: BLOOD, URINE TRACE (NEG); GLUCOSE,URINE NEG (NEG); KETONE, URINE NEG (NEG); NITRITE,URINE NEG (NEG)
[2017-01-24 07:37] LABS: AMPHETAMINE, URINE NEG (NEG); BARBITURATES, URINE NEG (NEG); COCAINE, URINE NEG (NEG); COMMENT (UR) CULT NOT INDICATED; CULTURE IF INDICATED CULT NOT INDICATED; METHOD OF COLLECTION CLEAN CATCH; RBC, URINE 0-3 /hpf (0-3); SQUAMOUS EPITHELIAL CELL URINE 0-5 /hpf (0-5); URINE COLOR STRAW (YELLW/STRAW)
[2017-01-24] MEDS ORDERED: BISACODYL 10 MG SUPP PR PRN (08:00)
[2017-01-24] MEDS ORDERED: ACETAMINOPHEN 325 MG TAB PO PRN (08:00)
[2017-01-24] MEDS ORDERED: NICOTINE 21 MG/24 HR PATCH TD ONE (08:00)
[2017-01-24] MEDS ORDERED: ONDANSETRON HCL 4 MG/2 ML VIAL IVP PRN (08:00)
[2017-01-24] MEDS ORDERED: NALOXONE HCL 0.4 MG/ML AMP IV PRN (08:00)
[2017-01-24] MEDS ORDERED: MAGNESIUM HYDROXIDE SUSP 30 ML CUP PO PRN (08:00)
[2017-01-24] MEDS: SODIUM CHLORIDE 0.9% FLUSH 10 ML FLUSH IV FLUSH SCH ×2 (09:00→21:00)
[2017-01-24] MEDS ORDERED: SODIUM CHLORIDE 0.9% FLUSH 10 ML FLUSH IV FLUSH SCH (09:00)
[2017-01-24] MEDS: HEPARIN SODIUM - SQ 10,000 UNITS/ML VIAL SQ SCH ×2 (10:31→21:10)
[2017-01-24] MEDS: DOCUSATE SODIUM 100 MG CAP PO SCH ×2 (10:31→21:10)
[2017-01-24] MEDS: LORazepam 0.5 MG TAB PO PRN ×2 (12:11→15:59)
[2017-01-24] MEDS: THIAMINE HCL 100 MG TAB PO SCH (12:11)
[2017-01-24] MEDS: cloNIDine HCL 0.1 MG TAB PO SCH ×2 (12:11→21:10)
[2017-01-24] MEDS: amLODIPine BESYLATE 5 MG TAB PO SCH (12:11)
[2017-01-24] MEDS ORDERED: LISINOPRIL 20 MG TAB PO SCH (12:15)
[2017-01-24] MEDS: LISINOPRIL 10 MG TAB PO SCH (12:40)
[2017-01-24] MEDS ORDERED: SERTRALINE HCL 100 MG TAB PO SCH (13:00)
[2017-01-24] MEDS: RESP: ALBUTEROL 2.5 MG/IPRATROPIUM 0.5 MG NEB (SCH) NEB ×4 (15:25→23:52)
[2017-01-24 18:20] LABS: MAGNESIUM 1.6 MG/DL (1.5-2.5)
[2017-01-24] MEDS: SODIUM CHLORIDE 1 GRAM TAB PO SCH (21:09)
[2017-01-24] MEDS: TEMAZEPAM 15 MG CAP PO PRN (21:10)
--- NOTE | 2017-01-24 23:04 | MB ---
cc: MARKUS CARLSON MD DATE OF CONSULTATION 01/24/17 REASON FOR CONSULTATION Hyponatremia and hypokalemia for evaluation. HISTORY OF PRESENT ILLNESS This is a 71-year-old female with past medical history of hypertension, chronic smoker, chronic obstructive pulmonary disease, hypothyroidism, seizure disorder, history of alcoholism who was brought to the hospital with confusion and altered mental status. I was called to see the patient because of low sodium and low potassium. The patient has previously low sodium and she was admitted here last month and her sodium was 112. Before that in November also her sodium was 112. The patient claims that she has been drinking enough fluid. She does not have any nausea or vomiting. Denies any shortness of breath. There is no history of diarrhea. She also has some shortness of breath. There is no cough. No chest pain. No palpitation. No history of fever. PAST MEDICAL HISTORY 1. Hypertension, 2. Chronic obstructive pulmonary disease, 3. Hypothyroidism, 4. History of alcoholism, 5. History of chronic smoking. 6. Anxiety, depression, 7. Seizure disorder. PAST SURGICAL HISTORY 1. History for endometriosis 2. Hysterectomy, 3. Left hip surgery. REVIEW OF SYSTEMS The patient denies any headache, dizziness or blurring of vision. She wants to go home. There is no history of nausea or vomiting. She has some shortness of breath. especially on exertion. There is no cough. No chest pain. No palpitation. No abdominal pain. No history of diarrhea. No dysuria, hematuria. She admits that she has been drinking a lot of fluids including iced tea. SOCIAL HISTORY The patient has history of smoking, smokes about one to 1 1/2 packs per day and drinks four beers every day. ALLERGIES CODEINE OXYCONTIN PERCOCET MEDICATIONS Currently she is on following medications - 1. Clonidine 0.1 mg b.i.d. 2. Zoloft 100 mg once a day. 3. Thiamine 100 mg daily. 4. Norvasc 5 mg daily. 5. Lisinopril 10 mg once a day. 6. Synthroid 100 mcg daily. 7. DuoNeb 1 ampule nebulizer. 8. Colace 100 mg q. 12-hour. 9. Heparin 5000 units q 12 hour. 10. Zofran as needed. 11. Narcan as needed. PHYSICAL EXAMINATION GENERAL: The patient is awake, alert. She is not in acute distress. VITAL SIGNS: Her last blood pressure is 147/65, temperature is 98.1, oxygen saturation on room air is 97-99%. HEENT: Pupils equally reacting to light. Nonicteric sclerae, conjunctivae pale. NECK: Supple. JVD is not elevated. LUNGS: The patient has bilateral good air entry with occasional wheezing. HEART: S1, S2 regular rhythm. ABDOMEN: Soft, lax. There is no tenderness. EXTREMITIES: There is no pedal edema LABORATORY DATA WBC count is 8.1, hemoglobin 13.7, platelet count 524. Sodium 120, potassium 2.8, chloride 80, BUN one, creatinine 0.5, lactic acid is 2.2, AST, ALT normal. Troponin I 0.02, total protein 7.5, albumin of 3.7, INR 1.0. Urinalysis showing specific gravity of 1.004 with trace occult blood. Ethyl alcohol level was less than three. Other toxicology screen was negative. Previously she had PASQUALE positive, but this was in 2007. IMAGING STUDIES The patient had CT scan of the brain done which shows no acute intracranial abnormality. Mild posterior midline soft tissue swelling. Chest x-ray was done which shows no acute disease. ASSESSMENT/PLAN 1. Hypertension 2. Hyponatremia. 3. Hypokalemia 4. COPD with exacerbation 5. History of alcoholism. The patient has recurrent hyponatremia and also has hypokalemia. Clinically, she looks euvolemic and her specific gravity is very low. I will check the urine sodium and osmolality. The differential diagnosis for the hyponatremia is most likely excessive free water intake and possibility of renal tubular acidosis causing hypokalemia. She has recurrent hypokalemia. Her bicarb has been normal or upper limit of normal. I will check the urine osmolality and the urine potassium also to make sure she is not losing much potassium in the urine. Her urine pH was 6.0. At present, she will need fluid restriction and I will put her on oral salt. Other possibility of hyponatremia is because of Zoloft which has been known to cause hyponatremia. I will stop. Her TSH is normal. She will need fluid restriction. Thank you for the consultation and the patient will be followed on the weekend by Dr. Lewis and I will follow her from Friday if she is still here. MD SHANITA Barrera/ /5:20 PM /10:38 PM
[2017-01-25] VITALS (21 sets, daily range): BP systolic 98–151; BP diastolic 47–68; PULSE 79–113; RESP 20–34; TEMP 98.1–98.9; O2SAT 94–97
[2017-01-25] MEDS: LORazepam 0.5 MG TAB PO PRN ×3 (00:23→20:38)
[2017-01-25] MEDS: RESP: ALBUTEROL 2.5 MG/IPRATROPIUM 0.5 MG NEB (SCH) NEB ×6 (05:33→23:33)
[2017-01-25] MEDS: LEVOTHYROXINE SODIUM 100 MCG TAB PO SCH (05:48)
[2017-01-25 06:20] LABS: AUTOMATED NEUTROPHIL # 5.3 TH/MM3 (1.8-7.7); BASOPHIL % 0.5 % (0.0-2.0); EOSINOPHIL % 0.2 % (0.0-4.0); HEMATOCRIT 34.4 % (35.0-46.0); HEMO FLAGS DIFF FINAL; LYMPH % 29.1 % (9.0-44.0); LYMPHOCYTE # 2.7 TH/MM3 (1.0-4.8); MEAN CELL VOLUME 89.6 FL (80.0-100.0); MEAN CORPUSCULAR HEMOGLOBIN 30.1 PG (27.0-34.0); MEAN CORPUSCULAR HGB CONC 33.5 % (32.0-36.0); MONO % 13.3 % (0.0-8.0); NEUT % 56.9 % (16.0-70.0); PLATELET COUNT 477 TH/MM3 (150-450); RED BLOOD COUNT 3.84 MIL/MM3 (4.00-5.30); RED CELL DISTRIBUTION WIDTH 12.8 % (11.6-17.2); WHITE BLOOD COUNT 9.2 TH/MM3 (4.0-11.0)
[2017-01-25 06:28] LABS: CHLORIDE 94 MEQ/L (98-107); POTASSIUM 3.3 MEQ/L (3.5-5.1); SODIUM (NA) 132 MEQ/L (136-145)
[2017-01-25 06:43] LABS: ALKALINE PHOSPHATASE 70 U/L (45-117); ALT (GPT) 17 U/L (10-53); ANION GAP 9 MEQ/L (5-15); AST (GOT) 9 U/L (15-37); BICARBONATE 29.5 MEQ/L (21.0-32.0); BLOOD UREA NITROGEN 8 MG/DL (7-18); GLOMERULAR FILTRATION RATE 141 ML/MIN (>89); TOTAL BILIRUBIN ADULT 0.3 MG/DL (0.2-1.0)
[2017-01-25] MEDS: SODIUM CHLORIDE 1 GRAM TAB PO SCH ×2 (09:00→20:40)
[2017-01-25] MEDS: DOCUSATE SODIUM 100 MG CAP PO SCH ×2 (09:00→20:38)
[2017-01-25] MEDS: SODIUM CHLORIDE 0.9% FLUSH 10 ML FLUSH IV FLUSH SCH ×2 (09:00→20:39)
[2017-01-25] MEDS ORDERED: INFLUENZA VIRUS VACCINE (QUADRIVALENT) 0.5 ML SYR IM ONE (10:00)
[2017-01-25] MEDS: THIAMINE HCL 100 MG TAB PO SCH (10:41)
[2017-01-25] MEDS: LISINOPRIL 10 MG TAB PO SCH (10:41)
[2017-01-25] MEDS: cloNIDine HCL 0.1 MG TAB PO SCH ×2 (10:41→20:38)
[2017-01-25] MEDS: amLODIPine BESYLATE 5 MG TAB PO SCH (10:41)
[2017-01-25] MEDS: HEPARIN SODIUM - SQ 10,000 UNITS/ML VIAL SQ SCH ×2 (10:43→20:39)
--- NOTE | 2017-01-25 11:03 | EKG ---
Date Performed: 01/24/2017 Time Performed: 04:57:04 PTAGE: 71 years EKG: Sinus rhythm Inferior ST-T changes are nonspecific Borderline ECG PREVIOUS TRACING : 12/20/2016 06.36 DOCTOR: Alton Aguilar Interpretating Date/Time 01/25/2017 11:01:03
[2017-01-25] MEDS: TEMAZEPAM 15 MG CAP PO PRN (20:38)
--- NOTE | 2017-01-25 21:30 | HHI.NPPN ---
Subjective History of Present Illness 71 year old female who drinks a gallon of ice tea a day came in with hyponatremia hypokalemia Review of Systems General Constitutional: Fatigue Objective Data Data 01/24/17 01/25/17 19:00 07:00 Intake Total 300 ml 120 ml Output Total 350 ml Balance 300 ml -230 ml Intake Oral 120 ml IV Total 300 ml 0 ml Output Urine Total 350 ml # Voids 3 2 # Bowel Movements 1 0 Vital Signs Date Time Temp Pulse Resp B/P Pulse Ox O2 Delivery O2 Flow Rate FiO2 01/25/17 19:23 96 21 01/25/17 19:00 100 01/25/17 18:00 94 26 99/47 96 01/25/17 18:00 94 01/25/17 17:00 96 01/25/17 17:00 96 34 120/62 95 01/25/17 16:00 82 01/25/17 16:00 90 01/25/17 16:00 98.1 90 29 132/62 96 01/25/17 15:00 84 01/25/17 14:00 86 01/25/17 13:00 80 01/25/17 12:00 96 01/25/17 12:00 98.1 96 25 98/50 96 01/25/17 11:00 90 01/25/17 10:54 97 21 01/25/17 10:00 82 01/25/17 09:00 88 01/25/17 08:00 82 01/25/17 08:00 98.1 82 23 112/57 95 01/25/17 07:00 98 01/25/17 04:00 98.6 79 20 134/63 95 01/25/17 04:00 79 01/25/17 00:00 94 01/25/17 00:00 98.9 98 20 143/64 95 -: 01/25/17 0606 01/25/17 0606 Physical Exam General Appearance: Well Developed, Well Nourished Eyes Eye Exam: Pupils Equal Neck Neck Exam: Neck Supple Pulmonary Resp Exam: Clear Bilaterally, Breath Sounds Equal Cardiology CV Exam: Regular, Normal Sinus Rhythm Gastrointestinal/Abdomen GI Exam: Soft, Non-Tender, Bowel Sounds Present Extremeties Extremities Exam: No Edema Neurologic Neuro Exam: Alert Assessment/Plan Problem List: (1) Hyponatremia Plan: likely due to increase water/ice tea intake, Na better discussed to cut back K phos ordered OK to dc from Nephrology point of view (2) Hypokalemia Plan: resolving Kunal Lewis MD Jan 25, 2017 21:29
[2017-01-26] VITALS (18 sets, daily range): BP systolic 140–160; BP diastolic 59–85; PULSE 77–102; RESP 18–25; TEMP 97.6–98.7; O2SAT 93–96
[2017-01-26] MEDS: RESP: ALBUTEROL 2.5 MG/IPRATROPIUM 0.5 MG NEB (SCH) NEB ×5 (03:11→19:47)
[2017-01-26] MEDS: LORazepam 0.5 MG TAB PO PRN ×2 (03:18→13:33)
[2017-01-26] MEDS: LEVOTHYROXINE SODIUM 100 MCG TAB PO SCH (05:21)
[2017-01-26] MEDS: SODIUM CHLORIDE 0.9% FLUSH 10 ML FLUSH IV FLUSH SCH ×2 (09:00→21:15)
--- NOTE | 2017-01-26 09:11 | HHI.PR ---
Subjective History of Present Illness Patient seen on 01/25/17.. no acute issue have habit of heavy drinking of iced tea. Review of Systems Constitutional Constitutional: Fatigue, Weakness Vitals/Results Intake & Output 01/25/17 01/25/17 01/26/17 15:00 23:00 07:00 Intake Total 1070 ml 100 ml Output Total 800 ml 400 ml Balance 270 ml -300 ml Intake Oral 1070 ml 100 ml Output Urine Total 800 ml 400 ml # Bowel Movements 0 0 Vital Signs Vital Signs Date Time Temp Pulse Resp B/P Pulse Ox O2 Delivery O2 Flow Rate FiO2 01/26/17 08:33 96 21 01/26/17 06:00 82 01/26/17 05:00 77 01/26/17 04:00 80 01/26/17 04:00 98.0 80 20 144/63 93 01/26/17 03:00 79 01/26/17 02:00 85 01/26/17 01:00 86 01/26/17 00:00 85 01/26/17 00:00 97.9 86 25 160/76 96 01/25/17 23:00 93 01/25/17 22:00 103 01/25/17 21:00 99 01/25/17 20:00 113 01/25/17 20:00 98.5 113 26 151/68 94 01/25/17 19:23 96 21 01/25/17 19:00 100 01/25/17 18:00 94 26 99/47 96 01/25/17 18:00 94 01/25/17 17:00 96 01/25/17 17:00 96 34 120/62 95 01/25/17 16:00 82 01/25/17 16:00 90 01/25/17 16:00 98.1 90 29 132/62 96 01/25/17 15:00 84 01/25/17 14:00 86 01/25/17 13:00 80 01/25/17 12:00 96 01/25/17 12:00 98.1 96 25 98/50 96 01/25/17 11:00 90 01/25/17 10:54 97 21 01/25/17 10:00 82 CBC/BMP: 01/25/17 0606 01/25/17 0606 Physical Exam General General Appearance: Well Developed, Well Nourished Eyes Eye Exam: Pupils Equal, Sclera White, Extraocular Movement Intact Throat Throat Exam: Oral Mucosa [place] & Moist Neck Neck Exam: Neck Supple Pulmonary Resp Exam: Clear Bilaterally, Breath Sounds Equal Cardiology CV Exam: Regular, Normal Sinus Rhythm Gastrointestinal/Abdomen GI Exam: Soft, Non-Tender, Bowel Sounds Present Extremeties Extremities Exam: No Edema Neurologic Neuro Exam: Alert, Awake VTE Prophylaxis VTE Prophylaxis Device: SCDs PUD Prophylasis PUD Prophylaxis: Protonix Assessment/Plan Assessment/Plan ASSESSMENT AND PLAN 1. This is a 71-year-old female who came to the ER diagnosed with altered mental status, which is totally resolved. 2. Shortness of breath. The patient has a history of COPD. The patient's oxygen saturation is 97% on room air. 3. History of hypertension. Continue home medication. Will monitor blood pressure. 4. History of alcohol abuse. The patient advised to quit drinking. The patient's alcohol level is normal and urine tox screen is negative. 5. History of hypothyroidism. Continue with levothyroxine 100 mcg p.o. daily. 6. History of insomnia. Continue with temazepam 50 mg p.o. h.s. 7. History of depression. Continue with sertraline 100 mg p.o. daily. 8. DVT prophylaxis with heparin 5000 units subcutaneous q.12h. 9. GI prophylaxis with Protonix 40 mg p.o. daily. 10.Anxiety. Start Ativan 0.5 mg p.o. t.i.d. p.r.n. anxiety. 11.We are going to manage the patient on a daily basis and make recommendations on a daily basis. Mckay Velarde MD Jan 26, 2017 09:11
[2017-01-26] MEDS: SODIUM CHLORIDE 1 GRAM TAB PO SCH ×2 (09:22→21:15)
[2017-01-26] MEDS: amLODIPine BESYLATE 5 MG TAB PO SCH (09:22)
[2017-01-26] MEDS: POTASSIUM PHOSPHATE MONOBASIC 500 MG TAB PO SCH ×2 (09:22→21:16)
[2017-01-26] MEDS: LISINOPRIL 10 MG TAB PO SCH (09:22)
[2017-01-26] MEDS: HEPARIN SODIUM - SQ 10,000 UNITS/ML VIAL SQ SCH ×2 (09:22→21:16)
[2017-01-26] MEDS: DOCUSATE SODIUM 100 MG CAP PO SCH ×2 (09:22→21:15)
[2017-01-26] MEDS: cloNIDine HCL 0.1 MG TAB PO SCH ×2 (09:22→21:15)
[2017-01-26] MEDS: THIAMINE HCL 100 MG TAB PO SCH (09:22)
--- NOTE | 2017-01-26 09:41 | HHI.PR ---
Subjective History of Present Illness Patient feel better no acute issue. Review of Systems Constitutional Constitutional: Fatigue, Weakness Vitals/Results Intake & Output 01/25/17 01/25/17 01/26/17 15:00 23:00 07:00 Intake Total 1070 ml 100 ml Output Total 800 ml 400 ml Balance 270 ml -300 ml Intake Oral 1070 ml 100 ml Output Urine Total 800 ml 400 ml # Bowel Movements 0 0 Vital Signs Vital Signs Date Time Temp Pulse Resp B/P Pulse Ox O2 Delivery O2 Flow Rate FiO2 01/26/17 08:33 96 21 01/26/17 06:00 82 01/26/17 05:00 77 01/26/17 04:00 80 01/26/17 04:00 98.0 80 20 144/63 93 01/26/17 03:00 79 01/26/17 02:00 85 01/26/17 01:00 86 01/26/17 00:00 85 01/26/17 00:00 97.9 86 25 160/76 96 01/25/17 23:00 93 01/25/17 22:00 103 01/25/17 21:00 99 01/25/17 20:00 113 01/25/17 20:00 98.5 113 26 151/68 94 01/25/17 19:23 96 21 01/25/17 19:00 100 01/25/17 18:00 94 26 99/47 96 01/25/17 18:00 94 01/25/17 17:00 96 01/25/17 17:00 96 34 120/62 95 01/25/17 16:00 82 01/25/17 16:00 90 01/25/17 16:00 98.1 90 29 132/62 96 01/25/17 15:00 84 01/25/17 14:00 86 01/25/17 13:00 80 01/25/17 12:00 96 01/25/17 12:00 98.1 96 25 98/50 96 01/25/17 11:00 90 01/25/17 10:54 97 21 01/25/17 10:00 82 CBC/BMP: 01/25/17 0606 01/25/17 0606 Physical Exam General General Appearance: Well Developed, Well Nourished Eyes Eye Exam: Pupils Equal Neck Neck Exam: Neck Supple Pulmonary Resp Exam: Clear Bilaterally, Breath Sounds Equal Cardiology CV Exam: Regular, Normal Sinus Rhythm Gastrointestinal/Abdomen GI Exam: Soft, Non-Tender, Bowel Sounds Present Extremeties Extremities Exam: No Edema Neurologic Neuro Exam: Alert, Awake VTE Prophylaxis VTE Prophylaxis Device: SCDs PUD Prophylasis PUD Prophylaxis: Protonix Assessment/Plan Assessment/Plan ASSESSMENT AND PLAN 1. This is a 71-year-old female who came to the ER diagnosed with altered mental status, which is totally resolved. 2. Shortness of breath. The patient has a history of COPD. The patient's oxygen saturation is 97% on room air. 3. History of hypertension. Continue home medication. Will monitor blood pressure. 4. History of alcohol abuse. The patient advised to quit drinking. The patient's alcohol level is normal and urine tox screen is negative. 5. History of hypothyroidism. Continue with levothyroxine 100 mcg p.o. daily. 6. History of insomnia. Continue with temazepam 50 mg p.o. h.s. 7. History of depression. Continue with sertraline 100 mg p.o. daily. 8. DVT prophylaxis with heparin 5000 units subcutaneous q.12h. 9. GI prophylaxis with Protonix 40 mg p.o. daily. 10.Anxiety. Start Ativan 0.5 mg p.o. t.i.d. p.r.n. anxiety. 11.We are going to manage the patient on a daily basis and make recommendations on a daily basis. Discussed Condition with: Patient Mckay Velarde MD Jan 26, 2017 09:41
[2017-01-26 12:00] LABS: BASOPHIL # 0.1 TH/MM3 (0-0.2); BASOPHIL % 1.5 % (0.0-2.0); EOSINOPHIL # 0.1 TH/MM3 (0-0.4); EOSINOPHIL % 0.7 % (0.0-4.0); HEMATOCRIT 34.9 % (35.0-46.0); HEMO FLAGS DIFF FINAL; LYMPH % 13.8 % (9.0-44.0); LYMPHOCYTE # 1.3 TH/MM3 (1.0-4.8); MEAN CELL VOLUME 89.1 FL (80.0-100.0); MEAN CORPUSCULAR HEMOGLOBIN 29.8 PG (27.0-34.0); MEAN CORPUSCULAR HGB CONC 33.5 % (32.0-36.0); MONO % 11.7 % (0.0-8.0); NEUT % 72.3 % (16.0-70.0); PLATELET COUNT 419 TH/MM3 (150-450); RED BLOOD COUNT 3.92 MIL/MM3 (4.00-5.30); RED CELL DISTRIBUTION WIDTH 13.3 % (11.6-17.2); WHITE BLOOD COUNT 9.6 TH/MM3 (4.0-11.0)
[2017-01-26 12:04] LABS: CHLORIDE 93 MEQ/L (98-107); POTASSIUM 3.9 MEQ/L (3.5-5.1); SODIUM (NA) 129 MEQ/L (136-145)
[2017-01-26 12:08] LABS: ANION GAP 9 MEQ/L (5-15); BICARBONATE 26.7 MEQ/L (21.0-32.0); BLOOD UREA NITROGEN 10 MG/DL (7-18); MAGNESIUM 1.9 MG/DL (1.5-2.5)
[2017-01-26 12:11] LABS: ALT (GPT) 20 U/L (10-53); AST (GOT) 13 U/L (15-37); GLOMERULAR FILTRATION RATE 153 ML/MIN (>89)
[2017-01-26 12:15] LABS: ALKALINE PHOSPHATASE 76 U/L (45-117); TOTAL BILIRUBIN ADULT 0.3 MG/DL (0.2-1.0)
[2017-01-26] MEDS: NICOTINE 21 MG/24 HR PATCH TD SCH (13:31)
[2017-01-26] MEDS ORDERED: LORazepam 2 MG/ML VIAL IV PUSH PRN ×4 (21:00)
[2017-01-26] MEDS ORDERED: LORazepam 2 MG TAB PO PRN (21:00)
[2017-01-26] MEDS ORDERED: FLUMAZENIL 0.5 MG/5 ML VIAL IV PUSH PRN (21:00)
[2017-01-26] MEDS ORDERED: LORazepam 1 MG TAB PO PRN (21:00)
[2017-01-26] MEDS: TEMAZEPAM 15 MG CAP PO PRN (21:15)
[2017-01-27] VITALS (7 sets, daily range): BP systolic 133–151; BP diastolic 64–78; PULSE 81–100; RESP 16–18; TEMP 96.9–98.6; O2SAT 93–97
[2017-01-27] MEDS: RESP: ALBUTEROL 2.5 MG/IPRATROPIUM 0.5 MG NEB (SCH) NEB ×7 (03:45→23:30)
[2017-01-27] MEDS: LEVOTHYROXINE SODIUM 100 MCG TAB PO SCH (06:46)
--- NOTE | 2017-01-27 08:17 | HHI.PR ---
Subjective History of Present Illness Patient deny any complaints wants to go home Psych consulted to check mental capasity evaluation. Review of Systems Constitutional Constitutional: Fatigue, Weakness Vitals/Results Intake & Output 01/26/17 01/26/17 01/27/17 15:00 23:00 07:00 # Voids 2 1 # Bowel Movements 0 Vital Signs Vital Signs Date Time Temp Pulse Resp B/P Pulse Ox O2 Delivery O2 Flow Rate FiO2 01/27/17 04:17 98.0 89 16 139/71 95 01/27/17 00:04 98.6 91 18 133/73 97 01/26/17 20:00 98.7 99 20 160/85 96 01/26/17 20:00 98 01/26/17 19:48 96 01/26/17 16:00 97.9 88 20 146/82 94 01/26/17 12:30 97.6 95 21 158/81 96 01/26/17 12:00 84 01/26/17 12:00 98.2 84 18 146/72 95 01/26/17 11:00 88 01/26/17 10:00 102 01/26/17 09:00 96 01/26/17 08:33 96 21 CBC/BMP: 01/26/17 1150 01/26/17 1150 Lab Results Laboratory Tests Test 01/26/17 11:50 White Blood Count 9.6 TH/MM3 Red Blood Count 3.92 MIL/MM3 Hemoglobin 11.7 GM/DL Hematocrit 34.9 % Mean Corpuscular Volume 89.1 FL Mean Corpuscular Hemoglobin 29.8 PG Mean Corpuscular Hemoglobin 33.5 % Concent Red Cell Distribution Width 13.3 % Platelet Count 419 TH/MM3 Mean Platelet Volume 7.2 FL Neutrophils (%) (Auto) 72.3 % Lymphocytes (%) (Auto) 13.8 % Monocytes (%) (Auto) 11.7 % Eosinophils (%) (Auto) 0.7 % Basophils (%) (Auto) 1.5 % Neutrophils # (Auto) 7.0 TH/MM3 Lymphocytes # (Auto) 1.3 TH/MM3 Monocytes # (Auto) 1.1 TH/MM3 Eosinophils # (Auto) 0.1 TH/MM3 Basophils # (Auto) 0.1 TH/MM3 CBC Comment DIFF FINAL Differential Comment Sodium Level 129 MEQ/L Potassium Level 3.9 MEQ/L Chloride Level 93 MEQ/L Carbon Dioxide Level 26.7 MEQ/L Anion Gap 9 MEQ/L Blood Urea Nitrogen 10 MG/DL Creatinine 0.41 MG/DL Estimat Glomerular Filtration 153 ML/MIN Rate Random Glucose 95 MG/DL Calcium Level 8.6 MG/DL Phosphorus Level 4.2 MG/DL Magnesium Level 1.9 MG/DL Total Bilirubin 0.3 MG/DL Aspartate Amino Transf 13 U/L (AST/SGOT) Alanine Aminotransferase 20 U/L (ALT/SGPT) Alkaline Phosphatase 76 U/L Total Protein 6.6 GM/DL Albumin 3.3 GM/DL Physical Exam General General Appearance: No Acute Distress, Comfortable Eyes Eye Exam: Pupils Equal, Sclera White, Extraocular Movement Intact Throat Throat Exam: Oral Pharynx Normal Neck Neck Exam: Neck Supple Pulmonary Resp Exam: Clear Bilaterally, Breath Sounds Equal Cardiology CV Exam: Regular, Normal Sinus Rhythm Gastrointestinal/Abdomen GI Exam: Soft, Non-Tender, Bowel Sounds Present Musculoskeletal MS Exam: Normal Tone Extremeties Extremities Exam: No Edema Neurologic Neuro Exam: Alert, Awake PUD Prophylasis PUD Prophylaxis: Protonix Assessment/Plan Assessment/Plan ASSESSMENT AND PLAN 1. This is a 71-year-old female who came to the ER diagnosed with altered mental status, which is totally resolved. 2. Shortness of breath. The patient has a history of COPD. The patient's oxygen saturation is 97% on room air. 3. History of hypertension. Continue home medication. Will monitor blood pressure. 4. History of alcohol abuse. The patient advised to quit drinking. The patient's alcohol level is normal and urine tox screen is negative. 5. History of hypothyroidism. Continue with levothyroxine 100 mcg p.o. daily. 6. History of insomnia. Continue with temazepam 50 mg p.o. h.s. 7. History of depression. Continue with sertraline 100 mg p.o. daily. 8. DVT prophylaxis with heparin 5000 units subcutaneous q.12h. 9. GI prophylaxis with Protonix 40 mg p.o. daily. 10.Anxiety. Start Ativan 0.5 mg p.o. t.i.d. p.r.n. anxiety. 11.We are going to manage the patient on a daily basis and make recommendations on a daily basis. Psych consulted for mental capasity evaluation. Discussed Condition with: Patient Mckay Velarde MD Jan 27, 2017 08:17
--- NOTE | 2017-01-27 08:19 | MH ---
cc: MCKAY [place] MD DATE OF ADMISSION: 01/25/2017 CHIEF COMPLAINT Altered mental status. HISTORY OF PRESENT ILLNESS This is a 71-year-old female with a past medical and surgical history significant for hypertension, hypothyroidism, anxiety, depression, COPD, seizure disorder, alcohol dependence, tobacco abuse, hyponatremia, hypokalemia, hypophosphatemia, hypomagnesemia, history of asthma, anxiety, depression, insomnia, history of headache, hypertension, COPD, history of surgery to correct endometriosis in 1966, screw in the left hip, tonsillectomy, who came to the ER at [facility] via private transportation with her daughter for evaluation of altered mental status and shortness of breath. According to the daughter she has not been herself for approximately five days and has had increased altered mental status and shortness of breath for the last two days. She has a history of COPD as well as previous hyponatremia and hypokalemia. The patient also had a fall within the last two weeks and she does not report or recall that she had facial bruising. The patient and the family do not report any new balance disturbance or identified facial, upper or lower extremity numbness, tingling or weakness. The patient denies any febrile illness. The patient continues to smoke cigarettes and drink alcohol. Due to the patient's ongoing symptoms and deterioration of mental status, the patient's daughter decided to bring the patient to the emergency department. No nausea or vomiting. No urinary symptoms. Other than that nothing significant. PAST MEDICAL/SURGICAL HISTORY As dictated above. SOCIAL HISTORY She drinks four beers daily, smokes 1-1/2 to 2 packs a day for more than 40 years. Lives at home alone. 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 FAMILY HISTORY Nothing significant. ALLERGIES 1. CODEINE. 2. OXYCONTIN. MEDICATIONS 1. Clonidine 0.1 mg p.o. b.i.d. 2. Vitamin B1 100 mg p.o. daily. 3. Synthroid 100 mcg p.o. daily. 4. Temazepam 15 mg p.o. h.s. 5. Sertraline 100 mg p.o. daily. 6. Lisinopril 20 mg p.o. daily. 7. Amlodipine/benazepril 5/10 p.o. daily. REVIEW OF SYSTEMS Positive for weakness. The patient is awake, alert and oriented x4 at the time of examination. PHYSICAL EXAMINATION GENERAL: This is a 71-year-old female sitting on the bed not in acute distress. VITAL SIGNS: Temperature 98.1, heart rate 99, respirations 18, blood pressure 147/65, O2 saturation 97% on room air. HEENT: Normocephalic, atraumatic. EOMI. PERRL. Oral mucosa moist. NECK: Supple. No visible thyromegaly or neck mass. Trachea is central. CV: Regular rate and rhythm. LUNGS: Respirations clear to auscultation bilaterally. ABDOMEN: Soft, nontender. Bowel sounds audible. EXTREMITIES: No cyanosis or clubbing. Full range of motion of all extremities. NEUROLOGIC: Awake, alert, oriented x4. No focal deficit. PSYCHIATRIC: The patient is cooperative. Mood and affect normal. LABORATORY CBC is unremarkable except for platelet count 524 high, monos 12.9 high, basos 3.0 high, eos 1.0 high. CMP is unremarkable except for sodium 120 low, potassium 2.8 low, chloride 80 low, lactic acid level 2.2 high, troponin-I less than 0.02, ammonia 22, TSH 3.0, total protein and albumin normal, creatinine kinase 92. PT 10.7, INR 1.0, APTT 24.6. Urine tox screen is normal with alcohol less than 3. Urine examination showed trace of occult blood. Blood cultures x2 are negative so far. IMAGING CT brain was done and shows no acute intracranial abnormalities identified, chronic changes including mild cerebral atrophy and mild periventricular white matter low attenuation characteristic of mild microvascular ischemia. There is mild posterior midline scalp soft tissue swelling. Chest x-ray done shows nothing acute. ASSESSMENT AND PLAN 1. This is a 71-year-old female who came to the ER diagnosed with altered mental status, which is totally resolved. 2. Shortness of breath. The patient has a history of COPD. The patient's oxygen saturation is 97% on room air. 3. History of hypertension. Continue home medication. Will monitor blood pressure. 4. History of alcohol abuse. The patient advised to quit drinking. The patient's alcohol level is normal and urine tox screen is negative. 5. History of hypothyroidism. Continue with levothyroxine 100 mcg p.o. daily. 6. History of insomnia. Continue with temazepam 50 mg p.o. h.s. 7. History of depression. Continue with sertraline 100 mg p.o. daily. 8. DVT prophylaxis with heparin 5000 units subcutaneous q.12h. 9. GI prophylaxis with Protonix 40 mg p.o. daily. 10.Anxiety. Start Ativan 0.5 mg p.o. t.i.d. p.r.n. anxiety. 11.We are going to manage the patient on a daily basis and make recommendations on a daily basis. Mckay Ny MD EA/AJIT /11:51 AM /8:34 AM
[2017-01-27] MEDS: REMOVE OLD PATCH TD SCH (09:00)
[2017-01-27] MEDS: SODIUM CHLORIDE 0.9% FLUSH 10 ML FLUSH IV FLUSH SCH ×2 (09:00→21:00)
[2017-01-27] MEDS: NICOTINE 21 MG/24 HR PATCH TD SCH (10:29)
[2017-01-27] MEDS: SODIUM CHLORIDE 1 GRAM TAB PO SCH ×2 (10:30→21:30)
[2017-01-27] MEDS: DOCUSATE SODIUM 100 MG CAP PO SCH ×2 (10:30→21:28)
[2017-01-27] MEDS: POTASSIUM PHOSPHATE MONOBASIC 500 MG TAB PO SCH ×2 (10:30→21:27)
[2017-01-27] MEDS: HEPARIN SODIUM - SQ 10,000 UNITS/ML VIAL SQ SCH ×2 (10:30→21:29)
[2017-01-27] MEDS: LORazepam 0.5 MG TAB PO PRN ×2 (10:31→17:33)
[2017-01-27] MEDS: amLODIPine BESYLATE 5 MG TAB PO SCH (10:31)
[2017-01-27] MEDS: LISINOPRIL 10 MG TAB PO SCH (10:31)
[2017-01-27] MEDS: THIAMINE HCL 100 MG TAB PO SCH (10:31)
[2017-01-27] MEDS: cloNIDine HCL 0.1 MG TAB PO SCH ×2 (10:31→21:28)
--- NOTE | 2017-01-27 15:58 | HHI.NPPN ---
Subjective History of Present Illness 71-year-old female with past medical history of hypertension, chronic smoker, chronic obstructive pulmonary disease, hypothyroidism, seizure disorder, history of alcoholism who was brought to the hospital with confusion and altered mental status. I was called to see the patient because of low sodium and low potassium. Additional Remarks Patient is alert, now being evaluated by psychiatry, no SOB. Review of Systems General Constitutional: Fatigue Objective Data Data 01/26/17 01/27/17 19:00 07:00 # Voids 3 # Bowel Movements 0 Vital Signs Date Time Temp Pulse Resp B/P Pulse Ox O2 Delivery O2 Flow Rate FiO2 01/27/17 12:00 97.0 85 18 144/72 95 01/27/17 08:00 96.9 81 18 151/78 93 01/27/17 04:17 98.0 89 16 139/71 95 01/27/17 00:04 98.6 91 18 133/73 97 01/26/17 20:00 98.7 99 20 160/85 96 01/26/17 20:00 98 01/26/17 19:48 96 01/26/17 16:00 97.9 88 20 146/82 94 -: 01/26/17 1150 01/26/17 1150 Physical Exam General Appearance: No Acute Distress, Comfortable Eyes Eye Exam: Pupils Equal Neck Neck Exam: Neck Supple Pulmonary Resp Exam: Clear Bilaterally, Breath Sounds Equal Cardiology CV Exam: Regular, Normal Sinus Rhythm Gastrointestinal/Abdomen GI Exam: Soft, Non-Tender, Bowel Sounds Present Extremeties Extremities Exam: No Edema Neurologic Neuro Exam: Alert, Awake Assessment/Plan Electrolyte Assessment: Hyperkalemia, Hyponatremia Problem List: (1) Hyponatremia (2) Hypokalemia Plan: resolving Plan Patient jeong stable Na. level 129-130. K is normal and Po4 improved after replacement. BP is stable. Will need to continue fluid restriction. Vikram Armenta MD Jan 27, 2017 15:58
--- NOTE | 2017-01-27 16:42 | PD.CONS ---
Provisional Diagnosis Admission Date Jan 25, 2017 at 15:23 Hume I. Alcohol use disorder, history of depression, mild to moderate neurocognitive disorder most probably due to alcohol use Hume II. Deferred Hume III. COPD, HTN, hypothyroidism, seizure Hume IV. Alcohol use disorder Hume V. 50 History of Present Illness Service Psychiatry Consult Requested By Primary Care Physician Simeon Wharton MD HPI The patient is a 71-year-old woman, domiciled alone in [place], single, no kids, with psychiatric history of anxiety and depression, no psychiatric hospitalizations, no previous suicidal attempts, alcohol use disorder, medical history of COPD, seizures, hypothyroidism, who presented to the emergency department by private transportation the care of her niece for evaluation of altered mental status and shortness of breath. allegedly had not been herself approximate 5 days and had increasing altered mental status and shortness of breath 2 days. Patient is also had a fall within the past 2 weeks that she does not report recall that his had facial bruising. Patient was admitted with a diagnosis COPD exacerbation, hyponatremia, hypokalemia. Consulted to psychiatry to assess decision-making capacity to participate in discharge planning. On psychiatric evaluation today patient is found in her bed , she is calm, cooperative and pleasant. Patient endorses good mood, she says that she is happy because she was told that she might go home tomorrow. She says that at home she has her pets, dog and parrot, waiting for her. She denies hopelessness, she denies helplessness, she denies depressed mood, she denies anhedonia, she denies problems with his sleep and appetite, she denies suicidal ideation. Patient denies visual and auditory hallucinations. Patient says that at times she feels sad because her mother 2 months ago at the age of [id number] years old, but other than that she is a happy person, who is always looking forward to accomplish her plans and no was motivated to get a better future. Patient describes herself as a worship person "I don't believe in depression I don't believe and suicidality". During the evaluation patient chose confusion, periods of disorganized speech, tangential thought process, but she was easily redirected. She also has some contradictory statements. She knows that she is in the hospital for problems breathing, she knows that she has hypertension, but she denies that she has problems with seizures and alcohol, even though she reminds later that she has those problem. For the patient is not really clear the reason of her hospitalization, she doesn't remember who brought her to the hospital, she doesn't remember the circumstances around her ER visit. She is unable to list her medical illnesses and medications. Patient is states that she wants to go home and is unable to elaborate about the medical recommendations at this moment. On Mini-Mental state, patient scores 21/30, with significant impairment in recent and immediate recall, abstraction, attention and executive function. In clock draw test patient fails to port needles in time which is consistent with executive function impairment. Patient reports 2-3 times use of alcohol in a week, usually 4-6 beers, she denies the use of illicit drugs. Review of Systems Constitutional: DENIES: Diaphoretic episodes, Fatigue, Fever, Weight gain, Weight loss, Chills, Dizziness, Change in appetite, Night Sweats Endocrine: DENIES: Abnorml menstrual pattern, Heat/cold intolerance, Polydipsia , Polyuria, Polyphagia Eyes: DENIES: Blurred vision, Diplopia, Eye inflammation, Eye pain, Vision loss , Photosensitivity, Double Vision Ears, nose, mouth, throat: DENIES: Tinnitus, Hearing loss, Vertigo, Nasal discharge, Oral lesions, Throat pain, Hoarseness, Ear Pain, Running Nose, Epistaxis, Sinus Pain, Toothache, Odynophagia Respiratory: COMPLAINS OF: Shortness of breath, DENIES: Apneas, Cough, Snoring , Wheezing, Hemoptysis, Sputum production Gastrointestinal: DENIES: Abdominal pain, Black stools, Bloody stools, Constipation, Diarrhea, Nausea, Vomiting, Difficulty Swallowing, Anorexia Musculoskeletal: DENIES: Joint pain, Muscle aches, Stiffness, Joint Swelling, Back pain, Neck pain Integumentary: DENIES: Abnormal pigmentation, Pruritus, Rash, Nail changes, Breast masses, Breast skin changes, Nipple discharge Hematologic/lymphatic: DENIES: Bruising, Lymphadenopathy Immunologic/allergic: DENIES: Eczema, Urticaria Neurologic: DENIES: Abnormal gait, Headache, Localized weakness, Paresthesias, Seizures, Speech Problems, Tremor, Poor Balance Psychiatric: DENIES: Anxiety, Confusion, Mood changes, Depression, Hallucinations, Agitation, Suicidal Ideation, Homicidal Ideation, Delusions Past Family Social History Coded Allergies: Codeine (Verified Allergy, Severe, Irritability/Anxiety, 12/19/16) Oxycontin (Verified Allergy, Intermediate, ITCHES, 12/19/16) Percocet (Verified Allergy, Intermediate, ITCHES, 12/19/16) Active Scripts Clonidine 0.1 Mg Tab0.1 Mg PO BID #60 TAB Ref 0 Prov:Mckay Velarde MD 12/26/16 Thiamine (Vitamin B-1)100 Mg [id number] Mg PO DAILY #30 TAB Prov:Mckay Velarde MD 12/26/16 Levothyroxine (Synthroid)100 Mcg [id number] Mcg PO DAILY@06 #30 TAB Prov:Mckay Velarde MD 12/26/16 Reported Medications Temazepam 15 Mg Cap15 Mg PO HS PRN (INSOMNIA) #30 CAP Ref 0 12/10/16 Sertraline 100 Mg [id number] Mg PO DAILY #30 TAB Ref 0 12/10/16 Lisinopril 20 Mg Tab20 Mg PO DAILY #30 TAB Ref 0 12/10/16 Amlodipine-Benazepril 5-10 Mg Cap1 Cap PO DAILY #30 CAP Ref 0 12/10/16 Current Medications Medications (Trade) Dose Ordered Sig/Latisha Route Start Time Stop Time Status Last Admin (NS Flush) 2 ml UNSCH PRN IVF 01/24/17 07:15 (NS Flush) 2 ml BID IV FLUSH 01/24/17 09:00 01/27/17 09:00 (Tylenol) 650 mg Q4H PRN PO 01/24/17 08:00 (Zofran Inj) 4 mg Q6H PRN IVP 01/24/17 08:00 (Dulcolax Supp) 10 mg DAILY PRN AR 01/24/17 08:00 (Colace) 100 mg Q12H PO 01/24/17 09:00 01/27/17 10:30 (Milk Of Magnesia Liq) 30 ml Q12H PRN PO 01/24/17 08:00 (Heparin Inj) 5,000 units Q12H SQ 01/24/17 09:00 01/27/17 10:30 (Narcan Inj) 0.4 mg UNSCH PRN IV 01/24/17 08:00 (Ativan) 0.5 mg Q8HR PRN PO 01/24/17 12:00 01/27/17 10:31 (Catapres) 0.1 mg BID PO 01/24/17 12:00 01/27/17 10:31 (Synthroid) 100 mcg DAILY@06 PO 01/25/17 06:00 01/27/17 06:46 (Restoril) 15 mg HS PRN PO 01/24/17 12:00 01/26/17 21:15 (Vitamin B1) 100 mg DAILY PO 01/24/17 12:00 01/27/17 10:31 (Norvasc) 5 mg DAILY PO 01/24/17 13:00 01/27/17 10:31 (Prinivil) 10 mg DAILY PO 01/24/17 13:00 01/27/17 10:31 (Sodium Chloride) 1 gm BID PO 01/24/17 21:00 01/27/17 10:30 (K-Phos) 500 mg Q12HR PO 01/26/17 09:00 01/27/17 10:30 (Habitrol 21 Mg Patch.24 Hr) 1 patch DAILY TD 01/26/17 13:00 01/27/17 10:29 Miscellaneous Information 1 DAILY TD 01/27/17 09:00 01/27/17 09:00 (Ativan) 1 mg Q4H PRN PO 01/26/17 21:00 (Ativan Inj) 1 mg Q4H PRN IV PUSH 01/26/17 21:00 (Ativan) 2 mg Q2H PRN PO 01/26/17 21:00 (Ativan Inj) 2 mg Q2H PRN IV PUSH 01/26/17 21:00 01/26/17 23:17 (Ativan Inj) 2 mg Q1H PRN IV PUSH 01/26/17 21:00 (Ativan Inj) 2 mg Q15M PRN IV PUSH 01/26/17 21:00 (Romazicon Inj) 0.2 mg Q1M PRN IV PUSH 01/26/17 21:00 Family History Her mother and her father, both, had dementia Social History Patient was born and raised in [place], she lives alone in [place], she is single, she has no kids, 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 Mental Status Examination Appearance woman, age appearing, in [facility], calm, cooperative and pleasant Speech: Unremarkable Orientation: Person, Place (partially), Time (partially) Memory: Impaired (describe) Thought Process: Circumstantial, Loose Association, Other (confabulation observed) Thought Content: Unremarkable Hallucination Type: None Attention and Concentration: Abnormal Suicidal Ideation: No Previous Suicide Attempts: No Homicidal Ideation: No Previous Homicide Attempts: No Judgement: Poor Affect: Good Mood: Euthymic Motor Activity: Normal gait Assessment & Plan Problem List: (1) Moderate alcohol-induced major neurocognitive disorder, amnestic confabulatory type, with moderate or severe use disorder Assessment & Plan: The patient is a 71-year-old woman, domiciled alone in [place], single, no kids, with psychiatric history of anxiety and depression, no psychiatric hospitalizations, no previous suicidal attempts, alcohol use disorder, patient is in sertraline 100 mgs prescribed by PCP, medical history of COPD, seizures, hypothyroidism, who presented to the emergency department by private transportation the care of her niece for evaluation of altered mental status and shortness of breath, admitted in the hospital due to COPD exacerbation, hyponatremia and hypokalemia. On psychiatric evaluation the patient does not present any significant, concerning or acute symptomatology of objective or subjective depression, anxiety, roc or perceptual disturbances. Patient denies suicidal ideation, she denies visual and auditory hallucinations. She does not need any immediate psychiatric intervention or psychiatric hospitalization for this moment. She can continue her sertraline to 100 mg daily. On evaluation of capacity patient presents a significant impairment in several aspects of cognition such as recent and immediate recall, orientation, executive function, attention and abstraction. Patient is unable even to recall the reason of her hospitalization , with ongoing confabulation, no able to elaborate about her understanding and appreciation of acute medical illnesses and consequences of not following medical recommendations. Based on this evaluation I just that the patient does not have decision-making capacity to refuse to go to a subacute rehabilitation. A healthcare by proxy or appointed decision-maker needs to be identified in order to help the patient with her . SW intervention to help with a safe discharge. Might consider consulting palliative care team to help with goals of care and a safe discharge plan. Consult appreciated. ICD Code: F10.26 (2) Alcohol abuse ICD Code: F10.10 Assessment & Plan Estimated LOS: days Aristides Sandra MD Jan 27, 2017 16:42
[2017-01-27] MEDS: TEMAZEPAM 15 MG CAP PO PRN (21:28)
[2017-01-28] VITALS: BP 153/87; PULSE 87; RESP 20; TEMP 98.7; O2SAT 96
[2017-01-28] MEDS: RESP: ALBUTEROL 2.5 MG/IPRATROPIUM 0.5 MG NEB (SCH) NEB ×2 (03:10→07:42)
[2017-01-28 04:00] VITALS: BP 138/68; PULSE 85; RESP 16; TEMP 98.5; O2SAT 96
[2017-01-28] MEDS: LEVOTHYROXINE SODIUM 100 MCG TAB PO SCH (05:48)
[2017-01-28 08:00] VITALS: BP 134/67; PULSE 77; PULSE 78; RESP 18; TEMP 97.5; O2SAT 95
--- NOTE | 2017-01-28 08:30 | HHI.PR ---
Subjective History of Present Illness Patient deny any complaints wants to go home Psych consulted to check mental capasity evaluation... noted ..ok to dc to SNF Today. Review of Systems Constitutional Constitutional: Fatigue, Weakness Vitals/Results Intake & Output 01/27/17 01/27/17 01/28/17 15:00 23:00 07:00 Intake Total 850 ml 100 ml 120 ml Output Total 600 ml Balance 850 ml 100 ml -480 ml Intake Oral 850 ml 100 ml 120 ml Output Urine Total 600 ml # Voids 4 1 # Bowel Movements 0 0 0 Vital Signs Vital Signs Date Time Temp Pulse Resp B/P Pulse Ox O2 Delivery O2 Flow Rate FiO2 01/28/17 08:00 97.5 78 18 134/67 95 01/28/17 04:00 98.5 85 16 138/68 96 01/28/17 00:00 98.7 87 20 153/87 96 01/27/17 23:41 100 01/27/17 20:00 97.9 98 18 136/66 95 01/27/17 16:00 97.2 89 18 139/64 96 01/27/17 12:00 97.0 85 18 144/72 95 CBC/BMP: 01/26/17 1150 01/26/17 1150 Physical Exam General General Appearance: No Acute Distress, Comfortable Eyes Eye Exam: Pupils Equal, Sclera White, Extraocular Movement Intact Throat Throat Exam: Oral Pharynx Normal Neck Neck Exam: Neck Supple Pulmonary Resp Exam: Clear Bilaterally, Breath Sounds Equal Cardiology CV Exam: Regular, Normal Sinus Rhythm Gastrointestinal/Abdomen GI Exam: Soft, Non-Tender, Bowel Sounds Present Musculoskeletal MS Exam: Normal Tone Extremeties Extremities Exam: No Edema Neurologic Neuro Exam: Alert, Awake VTE Prophylaxis VTE Prophylaxis Device: SCDs PUD Prophylasis PUD Prophylaxis: Protonix Assessment/Plan Assessment/Plan ASSESSMENT AND PLAN 1. This is a 71-year-old female who came to the ER diagnosed with altered mental status, which is totally resolved. 2. Shortness of breath. The patient has a history of COPD. The patient's oxygen saturation is 97% on room air. 3. History of hypertension. Continue home medication. Will monitor blood pressure. 4. History of alcohol abuse. The patient advised to quit drinking. The patient's alcohol level is normal and urine tox screen is negative. 5. History of hypothyroidism. Continue with levothyroxine 100 mcg p.o. daily. 6. History of insomnia. Continue with temazepam 50 mg p.o. h.s. 7. History of depression. Continue with sertraline 100 mg p.o. daily. 8. DVT prophylaxis with heparin 5000 units subcutaneous q.12h. 9. GI prophylaxis with Protonix 40 mg p.o. daily. 10.Anxiety. on Ativan 0.5 mg p.o. t.i.d. p.r.n. anxiety. ok to dc to SNF Today. f/u with pcp 1 week. Discussed Condition with: Patient Mckay Velarde MD Jan 28, 2017 08:30
[2017-01-28] MEDS: SODIUM CHLORIDE 0.9% FLUSH 10 ML FLUSH IV FLUSH SCH (09:00)
[2017-01-28] MEDS: REMOVE OLD PATCH TD SCH (09:00)
[2017-01-28] MEDS: amLODIPine BESYLATE 5 MG TAB PO SCH (12:54)
[2017-01-28] MEDS: SODIUM CHLORIDE 1 GRAM TAB PO SCH (12:54)
[2017-01-28] MEDS: LISINOPRIL 10 MG TAB PO SCH (12:55)
[2017-01-28] MEDS: THIAMINE HCL 100 MG TAB PO SCH (12:55)
[2017-01-28] MEDS: DOCUSATE SODIUM 100 MG CAP PO SCH (12:55)
[2017-01-28] MEDS: HEPARIN SODIUM - SQ 10,000 UNITS/ML VIAL SQ SCH (12:55)
[2017-01-28] MEDS: POTASSIUM PHOSPHATE MONOBASIC 500 MG TAB PO SCH (12:55)
[2017-01-28] MEDS: cloNIDine HCL 0.1 MG TAB PO SCH (12:55)
[2017-01-28] MEDS: NICOTINE 21 MG/24 HR PATCH TD SCH (12:56)
--- NOTE | 2017-01-28 16:07 | HHI.NPPN ---
Subjective History of Present Illness 71-year-old female with past medical history of hypertension, chronic smoker, chronic obstructive pulmonary disease, hypothyroidism, seizure disorder, history of alcoholism who was brought to the hospital with confusion and altered mental status. I was called to see the patient because of low sodium and low potassium. Additional Remarks Patient is alert, now eating well, no SOB. Review of Systems General Constitutional: Fatigue Objective Data Data 01/27/17 01/28/17 19:00 07:00 Intake Total 850 ml 220 ml Output Total 600 ml Balance 850 ml -380 ml Intake Oral 850 ml 220 ml Output Urine Total 600 ml # Voids 4 1 # Bowel Movements 0 0 Vital Signs Date Time Temp Pulse Resp B/P Pulse Ox O2 Delivery O2 Flow Rate FiO2 01/28/17 08:00 97.5 78 18 134/67 95 01/28/17 08:00 77 01/28/17 04:00 98.5 85 16 138/68 96 01/28/17 00:00 98.7 87 20 153/87 96 01/27/17 23:41 100 01/27/17 20:00 97.9 98 18 136/66 95 -: 01/26/17 1150 01/26/17 1150 Physical Exam General Appearance: No Acute Distress, Comfortable Eyes Eye Exam: Pupils Equal, Sclera White, Extraocular Movement Intact Throat Throat Exam: Oral Pharynx Normal Neck Neck Exam: Neck Supple Pulmonary Resp Exam: Clear Bilaterally, Breath Sounds Equal Cardiology CV Exam: Regular, Normal Sinus Rhythm Gastrointestinal/Abdomen GI Exam: Soft, Non-Tender, Bowel Sounds Present Musculoskeletal MS Exam: Normal Tone Extremeties Extremities Exam: No Edema Neurologic Neuro Exam: Alert, Awake VTE Prophylaxis Device: SCDs PUD Prophylasis PUD Prophylaxis: Protonix Assessment/Plan Electrolyte Assessment: Hyperkalemia, Hyponatremia Problem List: (1) Hyponatremia (2) Hypokalemia Plan: resolving Plan Patient jeong stable Na. level 129-130. K is normal and Po4 improved after replacement. BP is stable. Will need to continue fluid restriction. D/W the patient also told to eat more K in diet. Vikram Armenta MD Jan 28, 2017 16:07
--- NOTE | 2017-02-09 18:31 | MD ---
cc: MCKAY [place] MD ADMISSION DATE: 01/25/2017 DISCHARGE DATE: 01/28/2017 DISPOSITION: Okay to discharge the patient home. CONDITION AT THE TIME OF DISCHARGE: Satisfactory. ACTIVITY: As tolerated. DIET: Cardiac diet. ALLERGIES: 1. CODEINE. 2. OXYCONTIN. 3. PERCOCET. DISCHARGE MEDICATIONS: 1. Plavix. 2. Levothyroxine 100 micrograms p.o. daily. 3. Amlodipine 5 milligrams p.o. daily. 4. Zoloft 100 milligrams p.o. daily. 5. Lisinopril 20 milligrams p.o. daily. 6. Ativan 0.5 milligrams p.o. q. 8 hours. 7. Temazepam 50 milligrams p.o. daily. 8. Thiamine 100 milligrams p.o. daily. 9. Potassium chloride 40 milliequivalents daily. 10. Protonix 40 milligrams p.o. daily. 11. DuoNeb q. 6 hour nebulization. ADMISSION DIAGNOSIS: 1. Altered mental status which is totally resolved. 2. Shortness of breath secondary to COPD exacerbation which is totally resolved. 3. History of hypertension. 4. History of alcohol abuse. Advised to quit. 5. History of insomnia. 6. Depression. 7. Anxiety. HOSPITAL COURSE: This is a 71-year-old female admitted with the above-mentioned diagnosis and altered mental status resolved. The patient remained stable. No acute event happened. The patient discharged in a satisfactory condition. Further details in the medical record. Mckay Ny MD EA/ALVAREZ /1:52 PM /6:27 PM
== END 2017-01-28 18:18 | DRG 191 ==
LOC: PHED 05:38 → INTOOBSV 07:15 → PHEDA 07:15 → PHEDH 11:28 → PHICU 14:00 → OBSVTOIN 01-25 15:23 → PH3A 01-26 12:25
PROVIDERS: ADMIT Specialist; ATTEND Specialist
DX: J44.1 Chronic obstructive pulmonary disease with (acute) exacerbation (principal); E87.1 Hypo-osmolality and hyponatremia; E87.5 Hyperkalemia; F10.26 Alcohol dependence with alcohol-induced persisting amnestic disorder; G40.909 Epilepsy, unspecified, not intractable, without status epilepticus; I10 Essential (primary) hypertension; E87.6 Hypokalemia; F17.210 Nicotine dependence, cigarettes, uncomplicated; E03.9 Hypothyroidism, unspecified; F41.8 Other specified anxiety disorders; E83.39 Other disorders of phosphorus metabolism; E83.42 Hypomagnesemia; W19.XXXA Unspecified fall, initial encounter; G47.00 Insomnia, unspecified; F41.9 Anxiety disorder, unspecified
CPT/HCPCS: 70450; 71010; 80053; 80307; 81001; 82140; 82550; 83605; 83735; 83935; 84100; 84133; 84300; 84443; 84484; 85025; 85610; 85730; 87040; 93005; 94640; 94664; 96374; G0378; J1644; J2060; J2930; J3480; J7030

== ENCOUNTER 2017-04-17 13:10 | Inpatient (IN) | payer MEDICARE, MEDICAID ==
[~2017-04-17] VITALS: Ht 165.1 cm; Wt 52.6 kg
[2017-04-17 13:17] VITALS: BP 184/101; PULSE 102; RESP 20; TEMP 98.3; O2SAT 97
[2017-04-17] MEDS ORDERED: SODIUM CHLORIDE 0.9% FLUSH 5 ML FLUSH IV FLUSH PRN (14:15)
[2017-04-17] MEDS ORDERED: LORazepam 0.5 MG TAB PO ONE (14:15)
[2017-04-17 14:35] LABS: AUTOMATED NEUTROPHIL # 7.4 TH/MM3 (1.8-7.7); BASOPHIL # 0.4 TH/MM3 (0-0.2); BASOPHIL % 4.1 % (0.0-2.0); EOSINOPHIL # 0.1 TH/MM3 (0-0.4); EOSINOPHIL % 0.9 % (0.0-4.0); HEMATOCRIT 42.4 % (35.0-46.0); HEMO FLAGS DIFF FINAL; MEAN CORPUSCULAR HEMOGLOBIN 31.6 PG (27.0-34.0); MEAN CORPUSCULAR HGB CONC 34.8 % (32.0-36.0); MONO % 12.7 % (0.0-8.0); NEUT % 72.3 % (16.0-70.0); PLATELET COUNT 483 TH/MM3 (150-450); RED BLOOD COUNT 4.66 MIL/MM3 (4.00-5.30); RED CELL DISTRIBUTION WIDTH 14.2 % (11.6-17.2); WHITE BLOOD COUNT 10.2 TH/MM3 (4.0-11.0)
[2017-04-17 14:45] LABS: CHLORIDE 90 MEQ/L (98-107); POTASSIUM 3.5 MEQ/L (3.5-5.1); SODIUM (NA) 128 MEQ/L (136-145)
[2017-04-17 14:48] LABS: ANION GAP 10 MEQ/L (5-15); BICARBONATE 27.9 MEQ/L (21.0-32.0); BLOOD UREA NITROGEN 1 MG/DL (7-18)
[2017-04-17 14:50] LABS: PROTHROMBIN TIME - PATIENT 11.2 SEC (9.8-11.6)
[2017-04-17 14:51] LABS: ALT (GPT) 26 U/L (10-53); AST (GOT) 28 U/L (15-37); GLOMERULAR FILTRATION RATE 153 ML/MIN (>89)
[2017-04-17 14:52] LABS: BLOOD, URINE SMALL (NEG); GLUCOSE,URINE NEG (NEG); KETONE, URINE NEG (NEG); NITRITE,URINE NEG (NEG)
[2017-04-17 14:53] LABS: TOTAL BILIRUBIN ADULT 0.5 MG/DL (0.2-1.0)
[2017-04-17 14:54] LABS: ALKALINE PHOSPHATASE 113 U/L (45-117); CREATINE KINASE 132 U/L (26-192)
--- NOTE | 2017-04-17 15:02 | RADHPO ---
EXAM DATE/TIME: 04/17/2017 14:44 [facility] COMPARISON: CHEST PA & LAT, December 10, 2016, 22:46. INDICATIONS : Cough. Chest pain due to cough. No sleep for approx 5 days. MEDICAL HISTORY : Hypertension. Chronic obstructive pulmonary disease. Emphysema. Asthma. Wheezing. Thyroid diesase . SURGICAL HISTORY : Tonsillectomy. Hysterectomy. Left hip. ENCOUNTER: Initial ACUITY: 4 - 6 days PAIN SCORE: 6/10 LOCATION: chest FINDINGS: Lungs are hyperinflated. There is no evidence of significant airspace disease or acute congestion. Acute fractures are identified of the right fourth, fifth and possibly sixth ribs. Old left-sided rib fractures are noted. Heart and mediastinal structures are stable. A dose of cardiomegaly. CONCLUSION: Acute right rib fractures. COPD. No evidence of acute airspace disease, pneumothorax or significant congestion. Bravo Mcmullen MD on April 17, 2017 at 14:59 Board Certified Radiologist. This report was verified electronically.
[2017-04-17 15:11] LABS: COMMENT (UR) CATH-CULT NOT IND; CULTURE IF INDICATED CATH CULTURE NOT IND; RBC, URINE 0-3 /hpf (0-3); SQUAMOUS EPITHELIAL CELL URINE 0-5 /hpf (0-5); URINE COLOR YELLOW (YELLW/STRAW); WBC, URINE 0-2 /hpf (0-5)
[2017-04-17 15:30] VITALS: BP 173/94; PULSE 96; RESP 22; TEMP 97.5; O2SAT 95
[2017-04-17] MEDS ORDERED: LORazepam 2 MG/ML VIAL IV PUSH ONE (15:30)
[2017-04-17 15:35] VITALS: PULSE 98; RESP 16; O2SAT 98
[2017-04-17] MEDS ORDERED: potassium supplement (15:35)
[2017-04-17] MEDS ORDERED: [UNRECOGNIZED DRUG - OTHER] (15:35)
[2017-04-17] MEDS ORDERED: LORA-373 PO (15:35)
--- NOTE | 2017-04-17 15:51 | PD ---
HPI Chief Complaint: Anxiety Time Seen by Provider: 13:49 Travel History International Travel<30 days: No Contact w/Intl Traveler<30days: No Traveled to known affect area: No History of Present Illness HPI Patient is a 71-year-old female, with history of chronic alcoholism, who comes in because she has not slept in 5 days. She says that usually she takes Ativan and temazepam, but has been out of it. She is not due to refill it until April 24. She also has history of hyponatremia and is supposed take salt pills. It is unclear what she has been taking what she has not been taking. Per EMS her house is very messy and concerning for her ability to care for herself. Her sister is here with her, she is also concerned that she is not able to care for herself. She denies any pain at this time. She does admit she is having trouble remembering things. She was admitted a little while ago for hyponatremia sent to a rehabilitation facility. She was then discharged from there to her sister's home. While at her sister's home, she insisted on going back to her own house and living alone. Per the sister, she says that the rehabilitation facility says she needed to either stay long-term or live with someone else. PFSH Past Medical History Hx Anticoagulant Therapy: Yes (81MG ASA) Asthma: Yes (bronchitis) Blood Disorders: No Anxiety: Yes Depression: Yes Heart Rhythm Problems: No Cancer: No Cardiovascular Problems: Yes High Cholesterol: No Chemotherapy: No Chest Pain: No Congestive Heart Failure: No COPD: Yes Cerebrovascular Accident: No Diabetes: No Diminished Hearing: No Endocrine: Yes Gastrointestinal Disorders: No GERD: No Genitourinary: Yes Headaches: Yes Hiatal Hernia: No Hypertension: Yes Immune Disorder: No Implanted Vascular Access Dvce: Yes Kidney Stones: No Medical other: Yes ([place] ADDICTION) Musculoskeletal: No Neurologic: Yes ("fuzzy feeling".) Psychiatric: Yes Reproductive: No Respiratory: Yes (COPD) Immunizations Current: Yes Migraines: No Radiation Therapy: No Renal Failure: No Seizures: Yes Sleep Apnea: No Thyroid Disease: Yes Ulcer: No Influenza Vaccination: Yes PNEUMOCCOCAL Vaccine (Year): 2 ?: Not Menopausal: Yes Past Surgical History Abdominal Surgery: No AICD: No Arteriovenous Shunt: No Cardiac Surgery: No Ear Surgery: No Endocrine Surgery: No Eye Surgery: No Genitourinary Surgery: No Gynecologic Surgery: Yes (1967 SURGERY TO CORRECT ENDOMETRIOSIS) Hysterectomy: Yes Insulin Pump: No Neurologic Surgery: No Oral Surgery: No Pacemaker: No Thoracic Surgery: No Tonsillectomy: Yes Other Surgery: Yes (LEFT HIP) Social History Alcohol Use: Yes (HEAVY CONSUMPTION) Tobacco Use: Yes (2 1/2 PPD CIGAR CIGARETTES) Substance Use: No Allergies-Medications (Allergen,Severity, Reaction): Coded Allergies: Codeine (Verified Allergy, Severe, Irritability/Anxiety, 04/17/17) Oxycontin (Verified Allergy, Intermediate, ITCHES, 04/17/17) Percocet (Verified Allergy, Intermediate, ITCHES, 04/17/17) Reported Meds & Prescriptions Reported Meds & Active Scripts Active Synthroid (Levothyroxine Sodium) 100 Mcg Tab 100 Mcg PO DAILY@06 Reported Lorazepam 0.5 Mg Tab 0.5 Mg PO DAILY PRN [potassium supplement] [sodium supplement] Temazepam 15 Mg Cap 15 Mg PO HS PRN Sertraline (Sertraline HCl) 100 Mg Tab 100 Mg PO DAILY Lisinopril 20 Mg Tab 20 Mg PO BID Amlodipine-Benazepril 5-10 Mg Cap 1 Cap PO DAILY Review of Systems Except as stated in HPI: all other systems reviewed are Neg General / Constitutional: No: Fever, Chills Eyes: No: Blurred Vision HENT: No: Headaches Cardiovascular: No: Chest Pain or Discomfort Respiratory: No: Shortness of Breath Gastrointestinal: No: Nausea, Vomiting, Abdominal Pain Genitourinary: No: Dysuria Musculoskeletal: Positive: Pain, No: Edema Skin: No Rash, No Change in Pigmentation Neurologic: No: Weakness, Dizziness Physical Exam Narrative GENERAL: Awake and alert, in no acute distress. SKIN: Focused skin assessment warm/dry. HEAD: Atraumatic. Normocephalic. EYES: Pupils equal and round. No scleral icterus. ENT: No nasal bleeding or discharge. Mucous membranes pink and moist. NECK: Trachea midline. No JVD. CARDIOVASCULAR: Tachycardia. No murmur appreciated. RESPIRATORY: No accessory muscle use. Clear to auscultation. Breath sounds equal bilaterally. GASTROINTESTINAL: Abdomen soft, non-tender, nondistended. MUSCULOSKELETAL: No obvious deformities. No clubbing. No cyanosis. No edema. NEUROLOGICAL: Awake and alert. No obvious cranial nerve deficits. Motor grossly within normal limits. Normal speech. Mild tremor PSYCHIATRIC: Appropriate mood and affect; insight and judgment normal. Data Data Last Documented VS Vital Signs Date Time Temp Pulse Resp B/P Pulse Ox O2 Delivery O2 Flow Rate FiO2 04/17/17 15:35 98 16 98 Room Air 04/17/17 15:30 Orders Electrocardiogram (04/17/17 14:02) Complete Blood Count With Diff (04/17/17 14:02) Comprehensive Metabolic Panel (04/17/17 14:02) Creatine Kinase (Cpk) (04/17/17 14:02) Prothrombin Time / Inr (Pt) (04/17/17 14:02) Act Partial Throm Time (Ptt) (04/17/17 14:02) Troponin I (04/17/17 14:02) Thyroid Stimulating Hormone (04/17/17 14:02) Urinalysis - C+S If Indicated (04/17/17 14:02) Ua Includes Microscopic (04/17/17 14:02) Chest, Pa & Lat (04/17/17 14:02) Blood Glucose (04/17/17 14:02) Ecg Monitoring (04/17/17 14:02) Iv Access Insert/Monitor (04/17/17 14:02) Oximetry (04/17/17 14:02) Sodium Chloride 0.9% Flush (Ns Flush) (04/17/17 14:15) Lorazepam (Ativan) (04/17/17 14:15) Alcohol (Ethanol) (04/17/17 14:02) Hand, Complete ([id number]) (04/17/17 ) Lorazepam Inj (Ativan Inj) (04/17/17 15:30) Admit Order (Ed Use Only) (04/17/17 ) Labs Laboratory Tests Test 04/17/17 04/17/17 14:28 14:35 White Blood Count 10.2 TH/MM3 Red Blood Count 4.66 MIL/MM3 Hemoglobin 14.7 GM/DL Hematocrit 42.4 % Mean Corpuscular Volume 91.0 FL Mean Corpuscular Hemoglobin 31.6 PG Mean Corpuscular Hemoglobin 34.8 % Concent Red Cell Distribution Width 14.2 % Platelet Count 483 TH/MM3 Mean Platelet Volume 7.4 FL Neutrophils (%) (Auto) 72.3 % Lymphocytes (%) (Auto) 10.0 % Monocytes (%) (Auto) 12.7 % Eosinophils (%) (Auto) 0.9 % Basophils (%) (Auto) 4.1 % Neutrophils # (Auto) 7.4 TH/MM3 Lymphocytes # (Auto) 1.0 TH/MM3 Monocytes # (Auto) 1.3 TH/MM3 Eosinophils # (Auto) 0.1 TH/MM3 Basophils # (Auto) 0.4 TH/MM3 CBC Comment DIFF FINAL Differential Comment Prothrombin Time 11.2 SEC Prothromb Time International 1.0 RATIO Ratio Activated Partial 29.0 SEC Thromboplast Time Sodium Level 128 MEQ/L Potassium Level 3.5 MEQ/L Chloride Level 90 MEQ/L Carbon Dioxide Level 27.9 MEQ/L Anion Gap 10 MEQ/L Blood Urea Nitrogen 1 MG/DL Creatinine 0.41 MG/DL Estimat Glomerular Filtration 153 ML/MIN Rate Random Glucose 94 MG/DL Calcium Level 8.6 MG/DL Total Bilirubin 0.5 MG/DL Aspartate Amino Transf 28 U/L (AST/SGOT) Alanine Aminotransferase 26 U/L (ALT/SGPT) Alkaline Phosphatase 113 U/L Total Creatine Kinase 132 U/L Troponin I LESS THAN 0.02 NG/ML Total Protein 7.8 GM/DL Albumin 4.1 GM/DL Thyroid Stimulating Hormone 9.610 uIU/ML 3rd Gen Ethyl Alcohol Level LESS THAN 3 MG/DL Urine Color YELLOW Urine Turbidity CLEAR Urine pH 7.0 Urine Specific [place] 1.005 Urine Protein NEG mg/dL Urine Glucose (UA) NEG mg/dL Urine Ketones NEG mg/dL Urine Occult Blood SMALL Urine Nitrite NEG Urine Bilirubin NEG Urine Leukocyte Esterase NEG Urine RBC 0-3 /hpf Urine WBC 0-2 /hpf Urine Squamous Epithelial 0-5 /hpf Cells Microscopic Urinalysis Comment CATH-CULT NOT IND MDM Medical Decision Making Medical Screen Exam Complete: Yes Emergency Medical Condition: Yes Medical Record Reviewed: Yes Interpretation(s) ECG shows sinus rhythm at 99, no ST elevation or depression, normal intervals. Differential Diagnosis Alcohol withdrawal versus electrolyte abnormality versus failure to thrive versus dehydration versus infection Narrative Course Patient is a 71-year-old female comes in because she has been unable to sleep for 5 days. Exam shows tachycardia, slight tremor. Concern is for alcohol withdrawal. She is given Ativan. IV established, labs sent. Labs show sodium of 128. Chest x-ray shows right-sided rib fractures. Per sister and EMS reports, she is not doing well at home on her own, I feel she is unsafe discharge at this time. She'll be admitted for further management. Diagnosis Primary Impression: Alcohol withdrawal Qualified Code: F10.230 - Alcohol withdrawal, uncomplicated Additional Impressions: Hyponatremia Failure to thrive in adult Ribs, multiple fractures Qualified Code: S22.41XA - Closed fracture of multiple ribs of right side, initial encounter Admitting Information Admitting Physician Requests: Admit Kaitlynn Hamlin MD Apr 17, 2017 15:51
[2017-04-17] MEDS ORDERED: cloNIDine HCL 0.1 MG TAB PO PRN (16:45)
--- NOTE | 2017-04-17 16:58 | RADHPO ---
EXAM DATE/TIME: 04/17/2017 16:32 [facility] COMPARISON: No previous studies available for comparison. INDICATIONS : Pain in right hand near third proximal interphalangeal joint. MEDICAL HISTORY : Hypertension. Chronic obstructive pulmonary disease. Emphysema. SURGICAL HISTORY : Tonsillectomy. Hysterectomy. Left hip. ENCOUNTER: Initial ACUITY: 1 day PAIN SCORE: 4/10 LOCATION: Right Hand. FINDINGS: No acute fracture or dislocation of the right hand is noted. There are no significant arthritic noonan es noted. CONCLUSION: No acute fracture, dislocation or significant arthritic changes. Shaq Romano MD on April 17, 2017 at 16:54 Board Certified Radiologist. This report was verified electronically.
[2017-04-17] MEDS ORDERED: THIAMINE HCL 100 MG TAB PO ONE (17:00)
[2017-04-17] MEDS ORDERED: FOLIC ACID 1 MG TAB PO ONE (17:00)
[2017-04-17 17:13] VITALS: BP 150/72
[2017-04-17 17:30] VITALS: BP 173/94; PULSE 96; RESP 22; TEMP 97.5; O2SAT 95
[2017-04-17] MEDS: ACETAMINOPHEN/HYDROcodone 325 MG/5 MG TAB PO PRN (17:42)
[2017-04-17] MEDS: SODIUM CHLOR 0.9% 1000 ML INJ 1,000 ML IV SCH (18:45)
[2017-04-17 20:00] VITALS: BP 142/64; PULSE 85; RESP 20; TEMP 97.5; O2SAT 97
[2017-04-17] MEDS ORDERED: LISINOPRIL 20 MG TAB PO SCH (21:00)
[2017-04-18] VITALS: BP 167/72; PULSE 93; RESP 18; TEMP 98.3; O2SAT 98
[2017-04-18] MEDS: SODIUM CHLOR 0.9% 1000 ML INJ 1,000 ML IV SCH ×3 (03:43→22:45)
[2017-04-18] MEDS: ACETAMINOPHEN/HYDROcodone 325 MG/5 MG TAB PO PRN ×3 (03:45→18:31)
[2017-04-18] MEDS: LEVOTHYROXINE SODIUM 100 MCG TAB PO SCH (06:07)
[2017-04-18 06:39] LABS: POTASSIUM 2.7 MEQ/L (3.5-5.1)
[2017-04-18 08:00] VITALS: BP 169/88; PULSE 94; RESP 20; TEMP 97.6; O2SAT 96
[2017-04-18] MEDS ORDERED: POTASSIUM CHLORIDE 20 MEQ CONTROLLED RELEASE TAB PO ONE (08:30)
[2017-04-18] MEDS: REMOVE OLD PATCH T-DERMAL SCH (09:00)
[2017-04-18] MEDS ORDERED: INFLUENZA VIRUS VACCINE (QUADRIVALENT) 0.5 ML SYR IM ONE (10:00)
--- NOTE | 2017-04-18 10:07 | MH ---
cc: MCKAY [place] MD DATE OF ADMISSION 04/17/2017 CHIEF COMPLAINT Anxiety, unable to sleep. HISTORY OF PRESENT ILLNESS This is a 71-year-old female with a past medical and surgical history significant for chronic insomnia, asthma, history of anxiety, depression, alcohol addiction, history of COPD, heavy smoker for many years, history of endometriosis surgery, and hypertension who came to the ER at [facility] complaining of unable to sleep for the last night. She usually take Ativan and Temazepam, but she has been out of it and she is not due a refill until April 24. She has a history of hyponatremia and is supposed to take salt tablets and she is not taking any salt tablets. She came to EMS. The house is very messy and concerning for ability to care for herself. Her sister was in the ER with her. She is also concerned that she is not able to care for herself. She denies any pain. Denies any chest pain. Denies any shortness of breath and denies any nausea or vomiting, diarrhea, constipation. She does admit that she is having trouble remembering things. She was sent to rehabilitation facility recently and she was discharged from there to her sister's home and while she was at her sister's home, she insisted to go back to her own house living alone. Her sister and rehabilitation facility said to stay with someone or stay at the long-term assisted living facility or rehabilitation. The patient denies any other complaints, other than that, nothing significant. PAST MEDICAL AND SURGICAL HISTORY As dictated above and also hypothyroidism. SOCIAL HISTORY She is a heavy alcohol drinker and smoke of over 2-1/2 packs a day. Denies any abuse. Lives at home alone. 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 FAMILY HISTORY Nothing significant. ALLERGIES CODEINE, OXYCONTIN AND PERCOCET CAUSES ITCHING, RASH AND ANXIETY. MEDICATIONS 1. Clonidine 0.1 mg p.o. b.i.d. 2. Vitamin B1 100 mg p.o. daily 3. Temazepam 15 mg p.o. at bedtime p.r.n. insomnia 4. Sertraline 100 mg p.o. daily 5. Lisinopril 20 mg twice a day 6. Amlodipine 7. Benazepril 5/10 one p.o. daily 8. Levothyroxine 100 mcg p.o. daily REVIEW OF SYSTEMS Positive for insomnia, feeling weak and tired, all other review of systems are negative. PHYSICAL EXAMINATION This is a 71-year female laying on the bed not in acute distress. VITAL SIGNS: Temperature 97.6, heart rate 94, respiration 20, blood pressure 169/88, O2 saturation 96% on room air. HEENT: Normocephalic, atraumatic. EOMI. PERRL. Oral mucosa moist. NECK: Supple. No visible thyromegaly or neck mass. Trachea is central. CARDIOVASCULAR: Regular rate and rhythm. LUNGS: Respirations are clear to auscultation bilaterally. ABDOMEN: Soft, nontender. Bowel sounds audible. EXTREMITIES: No cyanosis or clubbing. Full range of motion of all extremities. NEUROLOGIC: Awake, alert, and oriented x4. No focal deficits. SKIN: Warm and dry. PSYCH: The patient is cooperative. Mood and affect is normal. LABORATORY DATA Include CBC is totally unremarkable except for platelet count of 483 with neutrophil percentage 72.3 high, with mono percentage of 12.7 high. BMP is totally unremarkable except for sodium was 128 now it is 134, potassium was 3.5, now it is 2.7, chloride was 90 low now it is 97, BUN 2 low, creatinine 0.37 low, calcium 8.4 low, magnesium 1.7, troponin-I less than 0.02. TSH 9.610 high. PT 11.2, INR 1.0, APTT 29.0 high. Alcohol less than 3. Urine examination shows small occult blood. Hand x-ray was done shows no acute fracture dislocation or significant arthritic changes. Chest x-ray was done shows acute right rib fracture and COPD. No evidence of acute airspace disease, pneumothorax or significant congestion. ASSESSMENT/PLAN 1. This is a 71-year female who came to the ER diagnosed with hyponatremia. The patient got normal saline and sodium improved from 128-134. We will monitor. 2. Hypokalemia. We will replaced potassium and also replace magnesium and we will monitor. 3. Insomnia. Continue with Ativan and Restoril. 4. Alcohol withdrawal. The patient is on DT prophylaxis. 5. Hypothyroidism. Continue with levothyroxine 100 mcg p.o. daily. 6. History of hypertension. Continue with the home blood pressure medication including lisinopril 20 mg p.o. b.i.d., Amlodipine 5 mg p.o. daily. 7. History of depression. Continue with Sertraline 100 mg p.o. daily. 8. Smoking, started on a nicotine patch. 9. DVT prophylaxis, SCD. 10. GI prophylaxis Protonix 40 mg p.o. daily. 11. I will check urine tox screen. 12. Check CBC and CMP tomorrow morning. 13. GI prophylaxis Protonix 40 mg p.o. daily. We are going to manage the patient on a daily basis and make recommendations on a daily basis. Mckay Ny MD EA/AYDEE /9:35 AM /9:51 AM
[2017-04-18] MEDS: MAGNESIUM SULFATE 1 GM PREMIX 100 ML IV SCH ×2 (10:15→10:29)
[2017-04-18] MEDS: LISINOPRIL 20 MG TAB PO SCH ×2 (10:16→21:46)
[2017-04-18] MEDS: SERTRALINE HCL 100 MG TAB PO SCH (10:16)
[2017-04-18] MEDS: NICOTINE 21 MG/24 HR PATCH T-DERMAL SCH (10:17)
[2017-04-18] MEDS: FOLIC ACID 1 MG TAB PO SCH (10:17)
[2017-04-18] MEDS: THIAMINE HCL 100 MG TAB PO SCH (10:17)
[2017-04-18] MEDS: LORazepam 0.5 MG TAB PO PRN (10:23)
[2017-04-18] MEDS: PANTOPRAZOLE SOD 40 MG DELAYED RELEASE TAB PO SCH (10:23)
[2017-04-18] MEDS ORDERED: amLODIPine BESYLATE 5 MG TAB PO SCH (11:00)
[2017-04-18] MEDS ORDERED: LISINOPRIL 10 MG TAB PO SCH ×2 (11:00)
[2017-04-18 12:00] VITALS: BP 162/81; PULSE 90; RESP 21; TEMP 97.4; O2SAT 95
[2017-04-18 13:56] LABS: AMPHETAMINE, URINE NEG (NEG)
[2017-04-18 13:57] LABS: BARBITURATES, URINE NEG (NEG)
[2017-04-18 14:13] LABS: COCAINE, URINE NEG (NEG)
[2017-04-18 16:00] VITALS: BP 157/70; PULSE 87; RESP 19; TEMP 98.3; O2SAT 97
[2017-04-18] MEDS: TEMAZEPAM 15 MG CAP PO PRN (21:46)
[2017-04-18 21:56] VITALS: BP 164/92; PULSE 100; RESP 20; TEMP 98.7; O2SAT 96
--- NOTE | 2017-04-18 22:50 | EKG ---
Date Performed: 04/17/2017 Time Performed: 14:14:23 PTAGE: 71 years EKG: Sinus rhythm POSSIBLE LEFT ATRIAL ENLARGEMENT MINIMAL ST DEPRESSION ABNORMAL ECG PREVIOUS TRACING : 01/24/2017 04.57 DOCTOR: Alton Aguilar Interpretating Date/Time 04/18/2017 22:48:37
[2017-04-19] VITALS: BP 159/83; PULSE 92; RESP 20; TEMP 98.2; O2SAT 94
[2017-04-19] MEDS: LEVOTHYROXINE SODIUM 100 MCG TAB PO SCH (06:16)
[2017-04-19] MEDS: PANTOPRAZOLE SOD 40 MG DELAYED RELEASE TAB PO SCH (07:34)
[2017-04-19] MEDS: SERTRALINE HCL 100 MG TAB PO SCH (07:34)
[2017-04-19] MEDS: ACETAMINOPHEN/HYDROcodone 325 MG/5 MG TAB PO PRN ×2 (07:35→20:54)
[2017-04-19] MEDS: FOLIC ACID 1 MG TAB PO SCH (07:35)
[2017-04-19] MEDS: LORazepam 0.5 MG TAB PO PRN (07:35)
[2017-04-19] MEDS: THIAMINE HCL 100 MG TAB PO SCH (07:35)
[2017-04-19] MEDS: LISINOPRIL 20 MG TAB PO SCH ×2 (07:35→20:55)
[2017-04-19] MEDS: NICOTINE 21 MG/24 HR PATCH T-DERMAL SCH (07:36)
[2017-04-19] MEDS: REMOVE OLD PATCH T-DERMAL SCH (07:36)
[2017-04-19] MEDS: SODIUM CHLOR 0.9% 1000 ML INJ 1,000 ML IV SCH (07:37)
[2017-04-19 07:46] LABS: AUTOMATED NEUTROPHIL # 5.2 TH/MM3 (1.8-7.7); BASOPHIL % 0.6 % (0.0-2.0); EOSINOPHIL # 0.2 TH/MM3 (0-0.4); EOSINOPHIL % 2.5 % (0.0-4.0); HEMATOCRIT 40.1 % (35.0-46.0); HEMO FLAGS DIFF FINAL; LYMPH % 16.7 % (9.0-44.0); LYMPHOCYTE # 1.3 TH/MM3 (1.0-4.8); MEAN CELL VOLUME 93.2 FL (80.0-100.0); MEAN CORPUSCULAR HEMOGLOBIN 31.1 PG (27.0-34.0); MEAN CORPUSCULAR HGB CONC 33.4 % (32.0-36.0); MONO % 15.3 % (0.0-8.0); NEUT % 64.9 % (16.0-70.0); PLATELET COUNT 472 TH/MM3 (150-450); RED BLOOD COUNT 4.31 MIL/MM3 (4.00-5.30); RED CELL DISTRIBUTION WIDTH 14.1 % (11.6-17.2); WHITE BLOOD COUNT 7.9 TH/MM3 (4.0-11.0)
[2017-04-19 07:56] VITALS: BP 179/84; PULSE 85; RESP 16; TEMP 97.7; O2SAT 96
[2017-04-19 07:59] LABS: CHLORIDE 96 MEQ/L (98-107); POTASSIUM 3.1 MEQ/L (3.5-5.1); SODIUM (NA) 133 MEQ/L (136-145)
[2017-04-19 08:09] LABS: ALKALINE PHOSPHATASE 89 U/L (45-117); ALT (GPT) 16 U/L (10-53); ANION GAP 9 MEQ/L (5-15); AST (GOT) 12 U/L (15-37); BICARBONATE 28.3 MEQ/L (21.0-32.0); BLOOD UREA NITROGEN 2 MG/DL (7-18); GLOMERULAR FILTRATION RATE 248 ML/MIN (>89); TOTAL BILIRUBIN ADULT 0.5 MG/DL (0.2-1.0)
--- NOTE | 2017-04-19 09:22 | HHI.PR ---
Subjective History of Present Illness Patient have forgetfulness and need mental capasity evaluation consulted neurology and Psych d/w JORDYN Xiao at bed side. Low potassium will replace. Review of Systems Constitutional Constitutional: Fatigue, Weakness Neurologic Neurologic Remarks forgetfulness Vitals/Results Intake & Output 04/18/17 04/18/17 04/19/17 15:00 23:00 07:00 Intake Total 1200 ml Balance 1200 ml Intake Oral 1200 ml # Voids 5 3 # Bowel Movements 0 0 Vital Signs Vital Signs Date Time Temp Pulse Resp B/P Pulse Ox O2 Delivery O2 Flow Rate FiO2 04/19/17 07:56 97.7 85 16 179/84 96 04/19/17 00:00 98.2 92 20 159/83 94 04/18/17 21:56 98.7 100 20 164/92 96 04/18/17 16:00 98.3 87 19 157/70 97 04/18/17 12:00 97.4 90 21 162/81 95 CBC/BMP: 04/19/17 0730 04/19/17 0730 Lab Results Laboratory Tests Test 04/18/17 04/19/17 13:09 07:30 Urine Opiates Screen NEG Urine Barbiturates Screen NEG Urine Amphetamines Screen NEG Urine Benzodiazepines Screen NEG Urine Cocaine Screen NEG Urine Cannabinoids Screen NEG White Blood Count 7.9 TH/MM3 Red Blood Count 4.31 MIL/MM3 Hemoglobin 13.4 GM/DL Hematocrit 40.1 % Mean Corpuscular Volume 93.2 FL Mean Corpuscular Hemoglobin 31.1 PG Mean Corpuscular Hemoglobin 33.4 % Concent Red Cell Distribution Width 14.1 % Platelet Count 472 TH/MM3 Mean Platelet Volume 7.2 FL Neutrophils (%) (Auto) 64.9 % Lymphocytes (%) (Auto) 16.7 % Monocytes (%) (Auto) 15.3 % Eosinophils (%) (Auto) 2.5 % Basophils (%) (Auto) 0.6 % Neutrophils # (Auto) 5.2 TH/MM3 Lymphocytes # (Auto) 1.3 TH/MM3 Monocytes # (Auto) 1.2 TH/MM3 Eosinophils # (Auto) 0.2 TH/MM3 Basophils # (Auto) 0.0 TH/MM3 CBC Comment DIFF FINAL Differential Comment Sodium Level 133 MEQ/L Potassium Level 3.1 MEQ/L Chloride Level 96 MEQ/L Carbon Dioxide Level 28.3 MEQ/L Anion Gap 9 MEQ/L Blood Urea Nitrogen 2 MG/DL Creatinine 0.27 MG/DL Estimat Glomerular Filtration 248 ML/MIN Rate Random Glucose 89 MG/DL Calcium Level 8.0 MG/DL Total Bilirubin 0.5 MG/DL Aspartate Amino Transf 12 U/L (AST/SGOT) Alanine Aminotransferase 16 U/L (ALT/SGPT) Alkaline Phosphatase 89 U/L Total Protein 6.2 GM/DL Albumin 3.0 GM/DL Physical Exam General General Appearance: No Acute Distress, Comfortable Eyes Eye Exam: Pupils Equal, Pupils Reactive, Sclera White, Extraocular Movement Intact Throat Throat Exam: Oral Mucosa Ault & Moist, Oral Pharynx Normal Neck Neck Exam: Neck Supple, Trachea Midline Pulmonary Resp Exam: Clear Bilaterally, Breath Sounds Equal, No Distress Cardiology CV Exam: Regular, Normal Sinus Rhythm Gastrointestinal/Abdomen GI Exam: Soft, Non-Tender, Bowel Sounds Present Musculoskeletal MS Exam: Normal Tone Integumentary Skin Exam: Clear, Warm, Dry, Intact Extremeties Extremities Exam: No Edema Neurologic Neuro Exam: Alert, Awake, Oriented, Speech Clear, Moving All Extremities Psychiatric Psych Exam: Appropriate Responses VTE Prophylaxis VTE Prophylaxis Meds: Lovenox PUD Prophylasis PUD Prophylaxis: Protonix Assessment/Plan Assessment/Plan ASSESSMENT/PLAN 1. This is a 71-year female who came to the ER diagnosed with hyponatremia. The patient got normal saline and sodium improved from 128-133. We will monitor. 2. Hypokalemia. We will replaced potassium and we will monitor. 3. Insomnia. Continue with Ativan and Restoril. 4. Alcohol withdrawal. The patient is on DT prophylaxis. 5. Hypothyroidism. Continue with levothyroxine 100 mcg p.o. daily. 6. History of hypertension. Continue with the home blood pressure medication including lisinopril 20 mg p.o. b.i.d., Amlodipine 5 mg p.o. daily. 7. History of depression. Continue with Sertraline 100 mg p.o. daily. 8. Smoking, on a nicotine patch. 9. DVT prophylaxis, SCD. 10. GI prophylaxis Protonix 40 mg p.o. daily. need mental capasity evaluation consulted Psych ?Dementia consulted Neurology. checked urine tox screen... negative. Check CBC and CMP tomorrow morning. We are going to manage the patient on a daily basis and make recommendations on a daily basis. Discussed Condition with: Patient Mckay Velarde MD Apr 19, 2017 09:22
[2017-04-19] MEDS ORDERED: cloNIDine HCL 0.1 MG TAB PO PRN (10:00)
[2017-04-19] MEDS ORDERED: POTASSIUM CHLORIDE 20 MEQ CONTROLLED RELEASE TAB PO ONE (10:00)
[2017-04-19] MEDS ORDERED: FLUMAZENIL 0.5 MG/5 ML VIAL IV PUSH PRN (11:00)
[2017-04-19] MEDS ORDERED: LORazepam 2 MG TAB PO PRN (11:00)
[2017-04-19] MEDS ORDERED: POTASSIUM CHLORIDE 10 MEQ CONTROLLED RELEASE TAB PO ONE (11:00)
[2017-04-19] MEDS ORDERED: LORazepam 2 MG/ML VIAL IV PUSH PRN ×4 (11:00)
[2017-04-19] MEDS ORDERED: HALOPERIDOL LACTATE 5 MG/ML AMP IM PRN (11:00)
[2017-04-19] MEDS: SODIUM CHLORIDE 1 GRAM TAB PO SCH ×2 (11:09→17:20)
[2017-04-19] MEDS: amLODIPine BESYLATE 5 MG TAB PO SCH (11:09)
[2017-04-19] MEDS: LORazepam 1 MG TAB PO PRN (11:09)
[2017-04-19 12:00] VITALS: BP 151/74; PULSE 76; RESP 16; TEMP 97.9; O2SAT 100
--- NOTE | 2017-04-19 15:14 | PD.CONS ---
Provisional Diagnosis Admission Date Apr 17, 2017 at 15:56 [place]. dementia. Benzo withdrawal. History of Present Illness Service Psychiatry Consult Requested By mario Primary Care Physician Simeon Wharton MD HPI 71-year-old female with possible dementia, forgetfulness and benzodiazepine withdrawal. Patient is oriented to person and place and possibly situation. She is not oriented to date, day, time or present. This physician spoke with the patient's nurse who reiterates the patient is very forgetful, including what the nurse teaches her, within minutes. Patient is reporting that she has been taking temazepam for years and recently ran out because her family relative got into the supply. Patient's doctor would reportedly not provide further temazepam. Patient's nurse tells me CIWA protocol was instituted today. Since receiving Ativan, patient's mentation and behavior have improved. Review of Systems Except as stated in HPI: all other systems reviewed are Neg Past Family Social History Coded Allergies: Codeine (Verified Allergy, Severe, Irritability/Anxiety, 04/17/17) Oxycontin (Verified Allergy, Intermediate, ITCHES, 04/17/17) Percocet (Verified Allergy, Intermediate, ITCHES, 04/17/17) Active Scripts Levothyroxine (Synthroid)100 Mcg [id number] Mcg PO DAILY@06 #30 TAB Prov:Mckay Velarde MD 12/26/16 Reported Medications Lorazepam 0.5 Mg Tab0.5 Mg PO DAILY PRN (ANXIETY) Ref 0 04/17/17 [potassium supplement] No Conflict Check 04/17/17 [sodium supplement] No Conflict Check 04/17/17 Temazepam 15 Mg Cap15 Mg PO HS PRN (INSOMNIA) #30 CAP Ref 0 12/10/16 Sertraline 100 Mg [id number] Mg PO DAILY #30 TAB Ref 0 12/10/16 Lisinopril 20 Mg Tab20 Mg PO BID #30 TAB Ref 0 12/10/16 Amlodipine-Benazepril 5-10 Mg Cap1 Cap PO DAILY #30 CAP Ref 0 12/10/16 Discontinued Scripts Clonidine 0.1 Mg Tab0.1 Mg PO BID #60 TAB Ref 0 Prov:Mckay Velarde MD 12/26/16 Thiamine (Vitamin B-1)100 Mg [id number] Mg PO DAILY #30 TAB Prov:Mckay Velarde MD 12/26/16 Current Medications Medications (Trade) Dose Ordered Sig/Latisha Route Start Time Stop Time Status Last Admin (NS Flush) 2 ml UNSCH PRN IV FLUSH 04/17/17 14:15 (Synthroid) 100 mcg DAILY@06 PO 04/18/17 06:00 04/19/17 06:16 (Zoloft) 100 mg DAILY PO 04/18/17 09:00 04/19/17 07:34 (Restoril) 15 mg HS PRN PO 04/17/17 16:45 04/18/17 21:46 (Vitamin B1) 100 mg DAILY PO 04/18/17 09:00 04/19/17 07:35 (Folate) 1 mg DAILY PO 04/18/17 09:00 04/19/17 07:35 (Librium) 10 mg TID PRN PO 04/17/17 16:45 04/17/17 20:37 ([place] 5-325 Mg) 1 tab Q6H PRN PO 04/17/17 16:45 04/19/17 07:35 (Catapres) 0.1 mg Q6H PRN PO 04/17/17 16:45 04/17/17 17:37 (Habitrol 21 Mg Patch.24 Hr) 1 patch DAILY T-DERMAL 04/18/17 09:00 04/19/17 07:36 Miscellaneous Information 1 DAILY T-DERMAL 04/18/17 09:00 04/19/17 07:36 (Ativan) 0.5 mg DAILY PRN PO 04/18/17 10:00 04/19/17 07:35 (Protonix) 40 mg DAILY PO 04/18/17 09:45 04/19/17 07:34 (Prinivil) 20 mg BID PO 04/18/17 11:00 04/19/17 07:35 (Norvasc) 5 mg DAILY PO 04/19/17 11:00 04/19/17 11:09 (Catapres) 0.1 mg Q6H PRN PO 04/19/17 10:00 (Sodium Chloride) 1 gm TID PO 04/19/17 13:00 04/19/17 11:09 (Ativan) 1 mg Q4H PRN PO 04/19/17 11:00 04/19/17 11:09 (Ativan Inj) 1 mg Q4H PRN IV PUSH 04/19/17 11:00 (Ativan) 2 mg Q2H PRN PO 04/19/17 11:00 (Ativan Inj) 2 mg Q2H PRN IV PUSH 04/19/17 11:00 (Ativan Inj) 2 mg Q1H PRN IV PUSH 04/19/17 11:00 (Ativan Inj) 2 mg Q15M PRN IV PUSH 04/19/17 11:00 (Haldol Inj) 2 mg Q15M PRN IM 04/19/17 11:00 (Romazicon Inj) 0.2 mg Q1M PRN IV PUSH 04/19/17 11:00 Family History Positive for anxiety disorders. Social History Patient unemployed. Denies history of alcohol or substance abuse. Receives Social Security. Patient's Strengths (min. 2) Verbal and has access to healthcare. Physical Exam Vital Signs Vital Signs Date Time Temp Pulse Resp B/P Pulse Ox O2 Delivery O2 Flow Rate FiO2 04/19/17 12:00 97.9 76 16 151/74 100 04/17/17 15:35 Room Air I/O 04/18/17 04/18/17 04/19/17 08:00 16:00 00:00 Intake Total 762 ml 1200 ml Balance 762 ml 1200 ml Mental Status Examination Speech: Unremarkable Orientation: x3, Person, Place, Situation Memory: Impaired (describe) Thought Process: Circumstantial, Tangential Thought Content: Unremarkable Hallucination Type: None Attention and Concentration: Easily Distracted Suicidal Ideation: No Previous Suicide Attempts: No Homicidal Ideation: No Previous Homicide Attempts: No Insight: Fair Judgment: Unrealistic Affect: Good Mood: Appropriate Motor Activity: Normal gait Assessment & Plan Problem List: (1) Dementia ICD Code: F03.90 Assessment & Plan Estimated LOS: days although patient's sensorium is currently clear, she continues to show evidence of disorientation to time and at least short term memory deficits. These findings are consistent with an underlying dementia. However, this physician feels the patient also has benzodiazepine issues and if she is in withdrawal, this will make her mentation and behavior worse. Therefore, her competency needs to be judged at a case and time basis. In other words, there are times when she is likely to be competent, such as now. There may also be times when she is not competent, if she sundown's or goes into benzo withdrawal. Recommend continue CIWA protocol Toney Higgins MD Apr 19, 2017 15:14
[2017-04-19 15:41] VITALS: BP 179/80; PULSE 93; RESP 16; TEMP 99; O2SAT 96
[2017-04-19] MEDS: TEMAZEPAM 15 MG CAP PO PRN (20:54)
[2017-04-19 21:24] VITALS: BP 153/81; PULSE 91; RESP 18; TEMP 98.1; O2SAT 96
[2017-04-20 00:14] VITALS: BP 139/76; PULSE 88; RESP 16; TEMP 98.3; O2SAT 97
[2017-04-20] MEDS: LEVOTHYROXINE SODIUM 100 MCG TAB PO SCH (05:48)
[2017-04-20 07:52] VITALS: BP 157/87; PULSE 86; RESP 20; TEMP 97.7; O2SAT 95
[2017-04-20 07:58] LABS: AUTOMATED NEUTROPHIL # 4.9 TH/MM3 (1.8-7.7); BASOPHIL % 0.6 % (0.0-2.0); EOSINOPHIL # 0.1 TH/MM3 (0-0.4); EOSINOPHIL % 1.8 % (0.0-4.0); HEMATOCRIT 41.2 % (35.0-46.0); HEMO FLAGS DIFF FINAL; LYMPHOCYTE # 1.5 TH/MM3 (1.0-4.8); MEAN CELL VOLUME 93.1 FL (80.0-100.0); MEAN CORPUSCULAR HEMOGLOBIN 31.1 PG (27.0-34.0); MEAN CORPUSCULAR HGB CONC 33.4 % (32.0-36.0); MONO % 14.8 % (0.0-8.0); NEUT % 62.8 % (16.0-70.0); PLATELET COUNT 506 TH/MM3 (150-450); RED BLOOD COUNT 4.42 MIL/MM3 (4.00-5.30); RED CELL DISTRIBUTION WIDTH 13.6 % (11.6-17.2); WHITE BLOOD COUNT 7.6 TH/MM3 (4.0-11.0)
[2017-04-20 08:04] LABS: CHLORIDE 96 MEQ/L (98-107); POTASSIUM 3.4 MEQ/L (3.5-5.1); SODIUM (NA) 133 MEQ/L (136-145)
[2017-04-20 08:08] LABS: ANION GAP 7 MEQ/L (5-15); BICARBONATE 29.7 MEQ/L (21.0-32.0); BLOOD UREA NITROGEN 5 MG/DL (7-18)
[2017-04-20 08:11] LABS: ALT (GPT) 17 U/L (10-53); AST (GOT) 10 U/L (15-37); GLOMERULAR FILTRATION RATE 197 ML/MIN (>89)
[2017-04-20 08:12] LABS: TOTAL BILIRUBIN ADULT 0.4 MG/DL (0.2-1.0)
[2017-04-20 08:14] LABS: ALKALINE PHOSPHATASE 83 U/L (45-117)
[2017-04-20] MEDS: REMOVE OLD PATCH T-DERMAL SCH (09:00)
--- NOTE | 2017-04-20 10:45 | HHI.PR ---
Subjective History of Present Illness Patient have forgetfulness and Psych input noted for mental capasity evaluation d/w JORDYN Xiao at bed side. Low potassium will replace. Patient still forgetful. Review of Systems Constitutional Constitutional: Fatigue, Weakness Neurologic Neurologic Remarks forgetfulness Vitals/Results Intake & Output 04/19/17 04/19/17 04/20/17 15:00 23:00 07:00 Intake Total 890 ml 480 ml Output Total 250 ml Balance 640 ml 480 ml Intake Oral 690 ml 480 ml IV Total 200 ml 0 ml Output Urine Total 250 ml # Voids 6 4 # Bowel Movements 0 1 Vital Signs Vital Signs Date Time Temp Pulse Resp B/P Pulse Ox O2 Delivery O2 Flow Rate FiO2 04/20/17 07:52 97.7 86 20 157/87 95 04/20/17 04:23 04/20/17 00:14 98.3 88 16 139/76 97 04/19/17 21:54 20 04/19/17 21:24 98.1 91 18 153/81 96 04/19/17 15:41 99.0 93 16 179/80 96 04/19/17 12:00 97.9 76 16 151/74 100 CBC/BMP: 04/20/17 0738 04/20/17 0738 Lab Results Laboratory Tests Test 04/20/17 07:38 White Blood Count 7.6 TH/MM3 Red Blood Count 4.42 MIL/MM3 Hemoglobin 13.8 GM/DL Hematocrit 41.2 % Mean Corpuscular Volume 93.1 FL Mean Corpuscular Hemoglobin 31.1 PG Mean Corpuscular Hemoglobin 33.4 % Concent Red Cell Distribution Width 13.6 % Platelet Count 506 TH/MM3 Mean Platelet Volume 7.0 FL Neutrophils (%) (Auto) 62.8 % Lymphocytes (%) (Auto) 20.0 % Monocytes (%) (Auto) 14.8 % Eosinophils (%) (Auto) 1.8 % Basophils (%) (Auto) 0.6 % Neutrophils # (Auto) 4.9 TH/MM3 Lymphocytes # (Auto) 1.5 TH/MM3 Monocytes # (Auto) 1.1 TH/MM3 Eosinophils # (Auto) 0.1 TH/MM3 Basophils # (Auto) 0.0 TH/MM3 CBC Comment DIFF FINAL Differential Comment Sodium Level 133 MEQ/L Potassium Level 3.4 MEQ/L Chloride Level 96 MEQ/L Carbon Dioxide Level 29.7 MEQ/L Anion Gap 7 MEQ/L Blood Urea Nitrogen 5 MG/DL Creatinine 0.33 MG/DL Estimat Glomerular Filtration 197 ML/MIN Rate Random Glucose 93 MG/DL Calcium Level 8.5 MG/DL Total Bilirubin 0.4 MG/DL Aspartate Amino Transf 10 U/L (AST/SGOT) Alanine Aminotransferase 17 U/L (ALT/SGPT) Alkaline Phosphatase 83 U/L Total Protein 6.4 GM/DL Albumin 3.1 GM/DL Physical Exam General General Appearance: No Acute Distress, Comfortable Eyes Eye Exam: Pupils Equal, Pupils Reactive, Sclera White, Extraocular Movement Intact Throat Throat Exam: Oral Mucosa [place] & Moist, Oral Pharynx Normal Neck Neck Exam: Neck Supple, Trachea Midline Pulmonary Resp Exam: Clear Bilaterally, Breath Sounds Equal, No Distress Cardiology CV Exam: Regular, Normal Sinus Rhythm Gastrointestinal/Abdomen GI Exam: Soft, Non-Tender, Bowel Sounds Present Musculoskeletal MS Exam: Normal Tone Integumentary Skin Exam: Clear, Warm, Dry, Intact Extremeties Extremities Exam: No Edema Neurologic Neuro Exam: Alert, Awake, Speech Clear, Moving All Extremities Neuro Remarks Forgetful. Psychiatric Psych Exam: Appropriate Responses VTE Prophylaxis VTE Prophylaxis Meds: Lovenox PUD Prophylasis PUD Prophylaxis: Protonix Assessment/Plan Assessment/Plan ASSESSMENT/PLAN 1. This is a 71-year female who came to the ER diagnosed with hyponatremia. The patient got normal saline and sodium improved from 128-133. We will monitor. 2. Hypokalemia. We will replaced potassium and we will monitor. 3. Insomnia. Continue with Ativan and Restoril. 4. Alcohol withdrawal. The patient is on DT prophylaxis. 5. Hypothyroidism. Continue with levothyroxine 100 mcg p.o. daily. 6. History of hypertension. Continue with the home blood pressure medication including lisinopril 20 mg p.o. b.i.d., Amlodipine 5 mg p.o. daily. 7. History of depression. Continue with Sertraline 100 mg p.o. daily. 8. Smoking, on a nicotine patch. 9. DVT prophylaxis, SCD. 10. GI prophylaxis Protonix 40 mg p.o. daily. 11. Psych input noted for mental capasity evaluation ?Dementia consulted Neurology. checked urine tox screen... negative. Check CBC and CMP tomorrow morning. We are going to manage the patient on a daily basis and make recommendations on a daily basis. Discussed Condition with: Patient Mckay Velarde MD Apr 20, 2017 10:45
[2017-04-20] MEDS: SODIUM CHLORIDE 1 GRAM TAB PO SCH ×3 (10:52→17:28)
[2017-04-20] MEDS: THIAMINE HCL 100 MG TAB PO SCH (10:52)
[2017-04-20] MEDS: PANTOPRAZOLE SOD 40 MG DELAYED RELEASE TAB PO SCH (10:52)
[2017-04-20] MEDS: amLODIPine BESYLATE 5 MG TAB PO SCH (10:52)
[2017-04-20] MEDS: SERTRALINE HCL 100 MG TAB PO SCH (10:52)
[2017-04-20] MEDS: LORazepam 0.5 MG TAB PO PRN (10:52)
[2017-04-20] MEDS: LISINOPRIL 20 MG TAB PO SCH ×2 (10:52→22:47)
[2017-04-20] MEDS: FOLIC ACID 1 MG TAB PO SCH (10:53)
[2017-04-20] MEDS: NICOTINE 21 MG/24 HR PATCH T-DERMAL SCH (10:53)
[2017-04-20 12:00] VITALS: BP 165/90; PULSE 86; RESP 20; TEMP 98; O2SAT 98
[2017-04-20] MEDS ORDERED: POTASSIUM CHLORIDE 10 MEQ CONTROLLED RELEASE TAB PO ONE (12:00)
--- NOTE | 2017-04-20 15:57 | MB ---
cc: PEARL COLMENARES M.D. DATE OF CONSULTATION: 04/20/2017. REASON FOR CONSULTATION: Dementia. HISTORY OF PRESENT ILLNESS: The patient is a 71-year-old woman who comes in with anxiety, inability to sleep with a history of chronic insomnia, she states since she was a child, asthma, anxiety, depression, alcohol addiction, COPD, heavy smoker for many years, hypertension. She came into the [place] [facility] with trouble sleeping. She usually takes Ativan and temazepam and has been out of it and not able to refill until April 24. She has a history also of hyponatremia and takes salt tablets and has not been taking it. PAST MEDICAL HISTORY: As stated. SOCIAL HISTORY: As stated. A heavy alcohol drinker and smoker of 2-1/2 packs a day. Lives alone. 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 ALLERGIES: 1. CODEINE. 2. OXYCONTIN. 3. PERCOCET. MEDICATIONS AT HOME: 1. Clonidine. 2. Vitamin B1. 3. Temazepam. 4. Sertraline. 5. Lisinopril. 6. Amlodipine. 7. Benazepril. 8. Levothyroxine. PHYSICAL EXAMINATION: VITAL SIGNS: Temperature is 98, pulse 86, respiratory rate 20, blood pressure 165/90 satting at 98%. NECK: The neck is supple. No bruits. HEART: Regular. NEUROLOGICAL EXAMINATION: She is sleepy, arousable, wakes up, tells me that she just fell asleep, is somewhat limited with what she wants to discuss. I did mention to her about seeing a specialist for her insomnia and she did not want to go that route. She knows that she is a edjing in [place]. She knows her date of and age. She knows it is 2016. She can tell me the president. She thought it was March and then she corrected herself and said it was April. She does not know the date. She did not know that it was the . Her speech otherwise is fluent. Pupils reactive. Face symmetrical. Tongue is midline. Motor gamez she has no lateralizing weakness. No drift or leg lag. Her gait cannot be assessed at this time as she is lying in bed and wants to go back to sleep. LABS: Her labs are reviewed. TSH is elevated 9.610. Potassium 3.4. Toxicology was negative. IMAGING STUDIES: There is no brain imaging going back into all of her admissions here and looking for any imaging and her last CT of the head was 01/24/2017 that showed nothing acute, chronic mild atrophy mild periventricular white matter. She had a brain MRI in 2007 that was negative for anything acute. The indication at that time was for seizures. IMPRESSION: 1. A 71-year-old woman with possible mild cognitive impairment versus possible mild cognitive impairment with a known history of heavy alcohol and tobacco abuse. 2. Chronic insomnia using benzodiazepines for sleep which can contribute to her dementia process. RECOMMENDATIONS: 1. Will go ahead and check a B12. 2. Adjust her thyroid if medication is indicated. 3. Get an RPR. 4. Certainly consider putting her on some medications such as Namenda versus Aricept if she is willing. 5. As far as her capacity to make decisions at this point really difficult for neurology to say. She seems pretty alert. Otherwise her mental status can wax and wane obviously depending on her medication. 6. I will go ahead and order some tests. 7. Consideration of medication for mild cognitive impairment should be entertained and certainly if she still drinks and smokes, those two risk factors need to be ridden of. 8. Watch her for any withdrawal seizures as well. MD NAVNEET Dwyer/ALVAREZ /2:13 PM /3:51 PM
[2017-04-20 16:00] VITALS: BP 130/69; PULSE 90; RESP 20; TEMP 98.5; O2SAT 95
[2017-04-20] MEDS: ACETAMINOPHEN/HYDROcodone 325 MG/5 MG TAB PO PRN (17:28)
[2017-04-20] MEDS: LORazepam 1 MG TAB PO PRN (17:39)
[2017-04-20 20:00] VITALS: BP 147/75; PULSE 87; RESP 16; TEMP 97.6; O2SAT 96
[2017-04-20] MEDS: TEMAZEPAM 15 MG CAP PO PRN (22:47)
[2017-04-21] VITALS: BP 183/86; PULSE 86; RESP 16; TEMP 96.2; O2SAT 96
[2017-04-21] MEDS: LEVOTHYROXINE SODIUM 100 MCG TAB PO SCH (05:26)
[2017-04-21 06:43] LABS: AUTOMATED NEUTROPHIL # 4.7 TH/MM3 (1.8-7.7); BASOPHIL # 0.1 TH/MM3 (0-0.2); BASOPHIL % 0.8 % (0.0-2.0); EOSINOPHIL # 0.1 TH/MM3 (0-0.4); EOSINOPHIL % 1.7 % (0.0-4.0); HEMATOCRIT 42.3 % (35.0-46.0); HEMO FLAGS DIFF FINAL; LYMPH % 19.5 % (9.0-44.0); LYMPHOCYTE # 1.4 TH/MM3 (1.0-4.8); MEAN CELL VOLUME 93.3 FL (80.0-100.0); MEAN CORPUSCULAR HEMOGLOBIN 31.1 PG (27.0-34.0); MEAN CORPUSCULAR HGB CONC 33.3 % (32.0-36.0); MONO % 13.7 % (0.0-8.0); NEUT % 64.3 % (16.0-70.0); PLATELET COUNT 507 TH/MM3 (150-450); RED BLOOD COUNT 4.53 MIL/MM3 (4.00-5.30); WHITE BLOOD COUNT 7.3 TH/MM3 (4.0-11.0)
[2017-04-21 06:49] LABS: CHLORIDE 94 MEQ/L (98-107); POTASSIUM 3.5 MEQ/L (3.5-5.1); SODIUM (NA) 133 MEQ/L (136-145)
[2017-04-21 06:55] LABS: ANION GAP 9 MEQ/L (5-15); BLOOD UREA NITROGEN 6 MG/DL (7-18)
[2017-04-21 06:58] LABS: ALT (GPT) 16 U/L (10-53); AST (GOT) 14 U/L (15-37)
[2017-04-21 06:59] LABS: GLOMERULAR FILTRATION RATE 204 ML/MIN (>89)
[2017-04-21 07:00] LABS: TOTAL BILIRUBIN ADULT 0.5 MG/DL (0.2-1.0)
[2017-04-21 07:01] LABS: ALKALINE PHOSPHATASE 81 U/L (45-117)
[2017-04-21 08:00] VITALS: BP 166/83; PULSE 83; RESP 16; TEMP 98.9; O2SAT 94
[2017-04-21] MEDS: SERTRALINE HCL 100 MG TAB PO SCH (08:50)
[2017-04-21] MEDS: THIAMINE HCL 100 MG TAB PO SCH (08:50)
[2017-04-21] MEDS: PANTOPRAZOLE SOD 40 MG DELAYED RELEASE TAB PO SCH (08:50)
[2017-04-21] MEDS: FOLIC ACID 1 MG TAB PO SCH (08:50)
[2017-04-21] MEDS: amLODIPine BESYLATE 5 MG TAB PO SCH (08:50)
[2017-04-21] MEDS: SODIUM CHLORIDE 1 GRAM TAB PO SCH ×3 (08:50→17:24)
[2017-04-21] MEDS: LISINOPRIL 20 MG TAB PO SCH ×2 (08:50→21:18)
[2017-04-21] MEDS: NICOTINE 21 MG/24 HR PATCH T-DERMAL SCH (08:51)
[2017-04-21] MEDS: REMOVE OLD PATCH T-DERMAL SCH (08:51)
--- NOTE | 2017-04-21 13:51 | HHI.PR ---
Subjective History of Present Illness Patient have forgetfulness and Psych input noted for mental capasity evaluation d/w RN Vonnie at bed side. Low potassium will replace. Patient still forgetful. Neurology input noted work up in progress. Review of Systems Constitutional Constitutional: Fatigue, Weakness Neurologic Neurologic Remarks forgetfulness Vitals/Results Intake & Output 04/20/17 04/20/17 04/21/17 15:00 23:00 07:00 Intake Total 420 ml 450 ml Balance 420 ml 450 ml Intake Oral 420 ml 450 ml # Voids 3 4 # Bowel Movements 1 1 Vital Signs Vital Signs Date Time Temp Pulse Resp B/P Pulse Ox O2 Delivery O2 Flow Rate FiO2 04/21/17 08:00 98.9 83 16 166/83 94 04/21/17 00:00 96.2 86 16 183/86 96 04/20/17 20:00 97.6 87 16 147/75 96 04/20/17 16:00 98.5 90 20 130/69 95 CBC/BMP: 04/21/17 0520 04/21/17 0520 Lab Results Laboratory Tests Test 04/20/17 04/21/17 14:44 05:20 Vitamin B12 Level 374 PG/ML White Blood Count 7.3 TH/MM3 Red Blood Count 4.53 MIL/MM3 Hemoglobin 14.1 GM/DL Hematocrit 42.3 % Mean Corpuscular Volume 93.3 FL Mean Corpuscular Hemoglobin 31.1 PG Mean Corpuscular Hemoglobin 33.3 % Concent Red Cell Distribution Width 14.0 % Platelet Count 507 TH/MM3 Mean Platelet Volume 7.6 FL Neutrophils (%) (Auto) 64.3 % Lymphocytes (%) (Auto) 19.5 % Monocytes (%) (Auto) 13.7 % Eosinophils (%) (Auto) 1.7 % Basophils (%) (Auto) 0.8 % Neutrophils # (Auto) 4.7 TH/MM3 Lymphocytes # (Auto) 1.4 TH/MM3 Monocytes # (Auto) 1.0 TH/MM3 Eosinophils # (Auto) 0.1 TH/MM3 Basophils # (Auto) 0.1 TH/MM3 CBC Comment DIFF FINAL Differential Comment Sodium Level 133 MEQ/L Potassium Level 3.5 MEQ/L Chloride Level 94 MEQ/L Carbon Dioxide Level 30.0 MEQ/L Anion Gap 9 MEQ/L Blood Urea Nitrogen 6 MG/DL Creatinine 0.32 MG/DL Estimat Glomerular Filtration 204 ML/MIN Rate Random Glucose 87 MG/DL Calcium Level 9.2 MG/DL Total Bilirubin 0.5 MG/DL Aspartate Amino Transf 14 U/L (AST/SGOT) Alanine Aminotransferase 16 U/L (ALT/SGPT) Alkaline Phosphatase 81 U/L Total Protein 6.8 GM/DL Albumin 3.3 GM/DL Physical Exam General General Appearance: No Acute Distress, Comfortable Eyes Eye Exam: Pupils Equal, Pupils Reactive, Sclera White, Extraocular Movement Intact Throat Throat Exam: Oral Mucosa [place] & Moist, Oral Pharynx Normal Neck Neck Exam: Neck Supple, Trachea Midline Pulmonary Resp Exam: Clear Bilaterally, Breath Sounds Equal, No Distress Cardiology CV Exam: Regular, Normal Sinus Rhythm Gastrointestinal/Abdomen GI Exam: Soft, Non-Tender, Bowel Sounds Present Musculoskeletal MS Exam: Normal Tone Integumentary Skin Exam: Clear, Warm, Dry, Intact Extremeties Extremities Exam: No Edema Neurologic Neuro Exam: Alert, Awake, Speech Clear, Moving All Extremities Neuro Remarks Forgetful. Psychiatric Psych Exam: Appropriate Responses VTE Prophylaxis VTE Prophylaxis Meds: Lovenox PUD Prophylasis PUD Prophylaxis: Protonix Assessment/Plan Assessment/Plan ASSESSMENT/PLAN 1. This is a 71-year female who came to the ER diagnosed with hyponatremia. The patient got normal saline and sodium improved from 128-133. We will monitor. 2. Hypokalemia. We will replaced potassium and we will monitor. 3. Insomnia. Continue with Ativan and Restoril. 4. Alcohol withdrawal. The patient is on DT prophylaxis. 5. Hypothyroidism. Continue with levothyroxine 100 mcg p.o. daily. 6. History of hypertension. Continue with the home blood pressure medication including lisinopril 20 mg p.o. b.i.d., Amlodipine 5 mg p.o. daily. 7. History of depression. Continue with Sertraline 100 mg p.o. daily. 8. Smoking, on a nicotine patch. 9. DVT prophylaxis, SCD. 10. GI prophylaxis Protonix 40 mg p.o. daily. 11. Psych input noted for mental capasity evaluation 12. ?Dementia Neurology input noted work up in progress. checked urine tox screen... negative. Check CBC and CMP tomorrow morning. We are going to manage the patient on a daily basis and make recommendations on a daily basis. Discussed Condition with: Patient Mckay Velarde MD Apr 21, 2017 13:50
[2017-04-21] MEDS: LORazepam 0.5 MG TAB PO PRN (14:55)
[2017-04-21 16:00] VITALS: BP 161/82; PULSE 76; RESP 17; TEMP 97; O2SAT 94
[2017-04-21 20:00] VITALS: BP 166/83; PULSE 95; RESP 16; TEMP 98.7; O2SAT 96
[2017-04-21] MEDS: TEMAZEPAM 15 MG CAP PO PRN (21:18)
[2017-04-22] VITALS: BP 176/99; PULSE 92; RESP 16; TEMP 97.7; O2SAT 97
[2017-04-22] MEDS ORDERED: RESP: ALBUTEROL 2.5 MG/3 ML NEB (PRN) INH (01:30)
[2017-04-22] MEDS: LEVOTHYROXINE SODIUM 100 MCG TAB PO SCH (05:42)
[2017-04-22 08:26] VITALS: BP 155/67; PULSE 86; RESP 19; TEMP 96.6; O2SAT 93
--- NOTE | 2017-04-22 08:27 | HHI.PR ---
Subjective History of Present Illness Patient have forgetfulness and Psych input noted for mental capasity evaluation d/w JORDYN Marcum at bed side. Low potassium will replace. Patient still forgetful. Neurology input noted work up in progress. lower normal B12 Started on replacement. High TSH Increase Levothyroxine dose to 125 mcgm daily. Review of Systems Constitutional Constitutional: Fatigue, Weakness Neurologic Neurologic Remarks forgetfulness Vitals/Results Intake & Output 04/21/17 04/21/17 04/22/17 15:00 23:00 07:00 Intake Total 360 ml 280 ml 240 ml Balance 360 ml 280 ml 240 ml Intake Oral 360 ml 280 ml 240 ml # Voids 1 1 2 # Bowel Movements 0 0 0 Vital Signs Vital Signs Date Time Temp Pulse Resp B/P Pulse Ox O2 Delivery O2 Flow Rate FiO2 04/22/17 00:00 97.7 92 16 176/99 97 04/21/17 20:00 98.7 95 16 166/83 96 04/21/17 16:00 97.0 76 17 161/82 94 CBC/BMP: 04/21/17 0520 04/21/17 0520 Physical Exam General General Appearance: No Acute Distress, Comfortable Eyes Eye Exam: Pupils Equal, Pupils Reactive, Sclera White, Extraocular Movement Intact Throat Throat Exam: Oral Mucosa [place] & Moist, Oral Pharynx Normal Neck Neck Exam: Neck Supple, Trachea Midline Pulmonary Resp Exam: Clear Bilaterally, Breath Sounds Equal, No Distress Cardiology CV Exam: Regular, Normal Sinus Rhythm Gastrointestinal/Abdomen GI Exam: Soft, Non-Tender, Bowel Sounds Present Musculoskeletal MS Exam: Normal Tone Integumentary Skin Exam: Clear, Warm, Dry, Intact Extremeties Extremities Exam: No Edema Neurologic Neuro Exam: Alert, Awake, Speech Clear, Moving All Extremities Neuro Remarks Forgetful. Psychiatric Psych Exam: Appropriate Responses VTE Prophylaxis VTE Prophylaxis Meds: Lovenox PUD Prophylasis PUD Prophylaxis: Protonix Assessment/Plan Assessment/Plan ASSESSMENT/PLAN 1. This is a 71-year female who came to the ER diagnosed with hyponatremia. The patient got normal saline and sodium improved from 128-133. We will monitor. 2. Hypokalemia. We will replaced potassium and we will monitor. 3. Insomnia. Continue with Ativan and Restoril. 4. Alcohol withdrawal. The patient is on DT prophylaxis. 5. Hypothyroidism. High TSH Increase Levothyroxine dose to 125 mcgm PO daily. 6. History of hypertension. Continue with the home blood pressure medication including lisinopril 20 mg p.o. b.i.d., Amlodipine 5 mg p.o. daily. 7. History of depression. Continue with Sertraline 100 mg p.o. daily. 8. Smoking, on a nicotine patch. 9. DVT prophylaxis, SCD. 10. GI prophylaxis Protonix 40 mg p.o. daily. 11. Psych input noted for mental capasity evaluation 12. ?Dementia Neurology input noted work up in progress... lower normal B12 Started on replacement. checked urine tox screen... negative. Check CBC and CMP tomorrow morning. We are going to manage the patient on a daily basis and make recommendations on a daily basis. DC Plan to SNF Tomorrow if ok with all. Discussed Condition with: Patient Mckay Velarde MD Apr 22, 2017 08:27
[2017-04-22] MEDS: THIAMINE HCL 100 MG TAB PO SCH (08:45)
[2017-04-22] MEDS: FOLIC ACID 1 MG TAB PO SCH (08:45)
[2017-04-22] MEDS: SODIUM CHLORIDE 1 GRAM TAB PO SCH ×3 (08:45→18:27)
[2017-04-22] MEDS: REMOVE OLD PATCH T-DERMAL SCH (08:45)
[2017-04-22] MEDS: SERTRALINE HCL 100 MG TAB PO SCH (08:45)
[2017-04-22] MEDS: PANTOPRAZOLE SOD 40 MG DELAYED RELEASE TAB PO SCH (08:45)
[2017-04-22] MEDS: LISINOPRIL 20 MG TAB PO SCH ×2 (08:45→21:20)
[2017-04-22] MEDS: NICOTINE 21 MG/24 HR PATCH T-DERMAL SCH (08:45)
[2017-04-22] MEDS: amLODIPine BESYLATE 5 MG TAB PO SCH (08:45)
[2017-04-22] MEDS: CYANOCOBALAMIN 1,000 MCG TAB PO SCH (08:49)
[2017-04-22] MEDS ORDERED: POTASSIUM CHLORIDE 10 MEQ CONTROLLED RELEASE TAB PO ONE (09:00)
[2017-04-22 09:10] LABS: AUTOMATED NEUTROPHIL # 4.2 TH/MM3 (1.8-7.7); BASOPHIL # 0.1 TH/MM3 (0-0.2); BASOPHIL % 0.9 % (0.0-2.0); EOSINOPHIL # 0.1 TH/MM3 (0-0.4); EOSINOPHIL % 1.3 % (0.0-4.0); HEMO FLAGS DIFF FINAL; LYMPH % 20.6 % (9.0-44.0); LYMPHOCYTE # 1.4 TH/MM3 (1.0-4.8); MEAN CELL VOLUME 91.2 FL (80.0-100.0); MEAN CORPUSCULAR HEMOGLOBIN 30.5 PG (27.0-34.0); MEAN CORPUSCULAR HGB CONC 33.5 % (32.0-36.0); MONO % 15.1 % (0.0-8.0); NEUT % 62.1 % (16.0-70.0); PLATELET COUNT 543 TH/MM3 (150-450); RED BLOOD COUNT 4.93 MIL/MM3 (4.00-5.30); RED CELL DISTRIBUTION WIDTH 13.9 % (11.6-17.2); WHITE BLOOD COUNT 6.8 TH/MM3 (4.0-11.0)
[2017-04-22 09:54] LABS: BICARBONATE 30.4 MEQ/L (21.0-32.0); BLOOD UREA NITROGEN 5 MG/DL (7-18)
[2017-04-22 09:57] LABS: ALT (GPT) 16 U/L (10-53); AST (GOT) 13 U/L (15-37)
[2017-04-22 09:58] LABS: GLOMERULAR FILTRATION RATE 149 ML/MIN (>89)
[2017-04-22 10:00] LABS: ANION GAP 9 MEQ/L (5-15); CHLORIDE 93 MEQ/L (98-107); POTASSIUM 3.5 MEQ/L (3.5-5.1); SODIUM (NA) 132 MEQ/L (136-145)
[2017-04-22 10:04] LABS: ALKALINE PHOSPHATASE 81 U/L (45-117)
[2017-04-22 10:07] LABS: TOTAL BILIRUBIN ADULT 0.3 MG/DL (0.2-1.0)
[2017-04-22 12:16] LABS: FREE T4 1.22 NG/DL (0.76-1.46)
[2017-04-22 12:25] VITALS: BP 169/78; PULSE 84; RESP 19; TEMP 97.7; O2SAT 93
[2017-04-22 16:43] VITALS: BP 121/80; PULSE 97; RESP 19; TEMP 97.8; O2SAT 96
[2017-04-22 20:00] VITALS: BP 159/92; PULSE 91; RESP 16; TEMP 97.6; O2SAT 97
[2017-04-22] MEDS: TEMAZEPAM 15 MG CAP PO PRN (22:24)
[2017-04-23] VITALS: BP 160/76; PULSE 92; RESP 18; TEMP 99.1; O2SAT 95
[2017-04-23] MEDS: LORazepam 0.5 MG TAB PO PRN (00:19)
[2017-04-23] MEDS ORDERED: LEVOTHYROXINE SODIUM 125 MCG TAB PO SCH (06:00)
[2017-04-23 06:45] LABS: AUTOMATED NEUTROPHIL # 4.2 TH/MM3 (1.8-7.7); BASOPHIL # 0.1 TH/MM3 (0-0.2); EOSINOPHIL # 0.1 TH/MM3 (0-0.4); EOSINOPHIL % 1.6 % (0.0-4.0); HEMATOCRIT 42.5 % (35.0-46.0); HEMO FLAGS DIFF FINAL; LYMPH % 22.2 % (9.0-44.0); LYMPHOCYTE # 1.5 TH/MM3 (1.0-4.8); MEAN CELL VOLUME 91.7 FL (80.0-100.0); MEAN CORPUSCULAR HGB CONC 33.8 % (32.0-36.0); NEUT % 60.2 % (16.0-70.0); PLATELET COUNT 503 TH/MM3 (150-450); RED BLOOD COUNT 4.64 MIL/MM3 (4.00-5.30); RED CELL DISTRIBUTION WIDTH 13.8 % (11.6-17.2); WHITE BLOOD COUNT 6.9 TH/MM3 (4.0-11.0)
[2017-04-23 06:57] LABS: CHLORIDE 95 MEQ/L (98-107); POTASSIUM 3.8 MEQ/L (3.5-5.1); SODIUM (NA) 132 MEQ/L (136-145)
[2017-04-23 07:00] LABS: ANION GAP 9 MEQ/L (5-15); BICARBONATE 28.5 MEQ/L (21.0-32.0); BLOOD UREA NITROGEN 5 MG/DL (7-18)
[2017-04-23 07:03] LABS: ALT (GPT) 15 U/L (10-53); AST (GOT) 15 U/L (15-37); GLOMERULAR FILTRATION RATE 173 ML/MIN (>89)
[2017-04-23 07:04] LABS: TOTAL BILIRUBIN ADULT 0.4 MG/DL (0.2-1.0)
[2017-04-23 07:06] LABS: ALKALINE PHOSPHATASE 74 U/L (45-117)
[2017-04-23] MEDS: SERTRALINE HCL 100 MG TAB PO SCH (07:45)
[2017-04-23] MEDS: REMOVE OLD PATCH T-DERMAL SCH (07:45)
[2017-04-23] MEDS: FOLIC ACID 1 MG TAB PO SCH (07:45)
[2017-04-23] MEDS: amLODIPine BESYLATE 5 MG TAB PO SCH (07:45)
[2017-04-23] MEDS: SODIUM CHLORIDE 1 GRAM TAB PO SCH ×2 (07:45→12:31)
[2017-04-23] MEDS: THIAMINE HCL 100 MG TAB PO SCH (07:45)
[2017-04-23] MEDS: PANTOPRAZOLE SOD 40 MG DELAYED RELEASE TAB PO SCH (07:45)
[2017-04-23] MEDS: CYANOCOBALAMIN 1,000 MCG TAB PO SCH (07:45)
[2017-04-23] MEDS: NICOTINE 21 MG/24 HR PATCH T-DERMAL SCH (07:45)
[2017-04-23] MEDS: LISINOPRIL 20 MG TAB PO SCH (07:46)
--- NOTE | 2017-04-23 07:46 | HHI.PR ---
Subjective History of Present Illness Patient have forgetfulness and Psych input noted for mental capasity evaluation d/w JORDYN Xiao at bed side. Low potassium resolved.. Patient still forgetful. Neurology input noted work up noted. lower normal B12 Started on replacement. High TSH Increase Levothyroxine dose to 125 mcgm daily. ok to dc to snf today. Review of Systems Constitutional Constitutional: Fatigue, Weakness Neurologic Neurologic Remarks forgetfulness Vitals/Results Intake & Output 04/22/17 04/22/17 04/23/17 15:00 23:00 07:00 Intake Total 620 ml Balance 620 ml Intake Oral 620 ml # Voids 3 # Bowel Movements 0 Vital Signs Vital Signs Date Time Temp Pulse Resp B/P Pulse Ox O2 Delivery O2 Flow Rate FiO2 04/23/17 00:00 99.1 92 18 160/76 95 04/22/17 20:00 97.6 91 16 159/92 97 04/22/17 16:43 97.8 97 19 121/80 96 04/22/17 12:25 97.7 84 19 169/78 93 04/22/17 08:26 96.6 86 19 155/67 93 CBC/BMP: 04/23/17 0618 04/23/17 0618 Lab Results Laboratory Tests Test 04/22/17 04/23/17 09:05 06:18 White Blood Count 6.8 TH/MM3 6.9 TH/MM3 Red Blood Count 4.93 MIL/MM3 4.64 MIL/MM3 Hemoglobin 15.1 GM/DL 14.4 GM/DL Hematocrit 45.0 % 42.5 % Mean Corpuscular Volume 91.2 FL 91.7 FL Mean Corpuscular Hemoglobin 30.5 PG 31.0 PG Mean Corpuscular Hemoglobin 33.5 % 33.8 % Concent Red Cell Distribution Width 13.9 % 13.8 % Platelet Count 543 TH/MM3 503 TH/MM3 Mean Platelet Volume 6.9 FL 7.3 FL Neutrophils (%) (Auto) 62.1 % 60.2 % Lymphocytes (%) (Auto) 20.6 % 22.2 % Monocytes (%) (Auto) 15.1 % 15.0 % Eosinophils (%) (Auto) 1.3 % 1.6 % Basophils (%) (Auto) 0.9 % 1.0 % Neutrophils # (Auto) 4.2 TH/MM3 4.2 TH/MM3 Lymphocytes # (Auto) 1.4 TH/MM3 1.5 TH/MM3 Monocytes # (Auto) 1.0 TH/MM3 1.0 TH/MM3 Eosinophils # (Auto) 0.1 TH/MM3 0.1 TH/MM3 Basophils # (Auto) 0.1 TH/MM3 0.1 TH/MM3 CBC Comment DIFF FINAL DIFF FINAL Differential Comment Sodium Level 132 MEQ/L 132 MEQ/L Potassium Level 3.5 MEQ/L 3.8 MEQ/L Chloride Level 93 MEQ/L 95 MEQ/L Carbon Dioxide Level 30.4 MEQ/L 28.5 MEQ/L Anion Gap 9 MEQ/L 9 MEQ/L Blood Urea Nitrogen 5 MG/DL 5 MG/DL Creatinine 0.42 MG/DL 0.37 MG/DL Estimat Glomerular Filtration 149 ML/MIN 173 ML/MIN Rate Random Glucose 91 MG/DL 87 MG/DL Calcium Level 9.1 MG/DL 9.0 MG/DL Total Bilirubin 0.3 MG/DL 0.4 MG/DL Aspartate Amino Transf 13 U/L 15 U/L (AST/SGOT) Alanine Aminotransferase 16 U/L 15 U/L (ALT/SGPT) Alkaline Phosphatase 81 U/L 74 U/L Total Protein 7.2 GM/DL 6.9 GM/DL Albumin 3.5 GM/DL 3.3 GM/DL Free Thyroxine 1.22 NG/DL Thyroid Stimulating Hormone 12.400 uIU/ML 3rd Gen Physical Exam General General Appearance: No Acute Distress, Comfortable Eyes Eye Exam: Pupils Equal, Pupils Reactive, Sclera White, Extraocular Movement Intact Throat Throat Exam: Oral Mucosa [place] & Moist, Oral Pharynx Normal Neck Neck Exam: Neck Supple, Trachea Midline Pulmonary Resp Exam: Clear Bilaterally, Breath Sounds Equal, No Distress Cardiology CV Exam: Regular, Normal Sinus Rhythm Gastrointestinal/Abdomen GI Exam: Soft, Non-Tender, Bowel Sounds Present Musculoskeletal MS Exam: Normal Tone Integumentary Skin Exam: Clear, Warm, Dry, Intact Extremeties Extremities Exam: No Edema Neurologic Neuro Exam: Alert, Awake, Speech Clear, Moving All Extremities Neuro Remarks Forgetful. Psychiatric Psych Exam: Appropriate Responses VTE Prophylaxis VTE Prophylaxis Meds: Lovenox PUD Prophylasis PUD Prophylaxis: Protonix Assessment/Plan Assessment/Plan ASSESSMENT/PLAN 1. This is a 71-year female who came to the ER diagnosed with hyponatremia. The patient got normal saline and sodium improved from 128-133. We will monitor. 2. Hypokalemia. We will replaced potassium and we will monitor. 3. Insomnia. Continue with Ativan and Restoril. 4. Alcohol withdrawal. The patient is on DT prophylaxis. 5. Hypothyroidism. High TSH Increase Levothyroxine dose to 125 mcgm PO daily. 6. History of hypertension. Continue with the home blood pressure medication including lisinopril 20 mg p.o. b.i.d., Amlodipine 5 mg p.o. daily. 7. History of depression. Continue with Sertraline 100 mg p.o. daily. 8. Smoking, on a nicotine patch. 9. DVT prophylaxis, SCD. 10. GI prophylaxis Protonix 40 mg p.o. daily. 11. Psych input noted for mental capasity evaluation 12. ?Dementia Neurology input noted work up in progress... lower normal B12 on replacement. checked urine tox screen... negative. ok to dc to snf today. f/u with pcp/ neurology 1 week. Discussed Condition with: Patient Mckay Velarde MD Apr 23, 2017 07:46
[2017-04-23 08:00] VITALS: BP 158/72; PULSE 77; RESP 18; TEMP 97.5; O2SAT 93
[2017-04-23] MEDS ORDERED: GNP100TA3 PO (08:08)
[2017-04-23] MEDS ORDERED: VITA10002 PO (08:08)
[2017-04-23] MEDS ORDERED: LEVO.125 PO (08:08)
[2017-04-23] MEDS ORDERED: REST15CA PO (08:08)
[2017-04-23] MEDS ORDERED: LORA-392 PO (08:08)
[2017-04-23] MEDS ORDERED: HYDR-3516 PO (08:08)
[2017-04-23] MEDS ORDERED: FOLI1TAB6 PO (08:08)
[2017-04-23 12:00] VITALS: BP 144/63; PULSE 83; RESP 18; TEMP 97.3; O2SAT 93
[2017-04-23] MEDS ORDERED: POTA10TA2 PO (12:11)
[2017-04-23] MEDS ORDERED: SODI1TAB PO (12:11)
--- NOTE | 2017-04-26 21:26 | MD ---
cc: MCKYA [place] MD ADMISSION DATE: 04/17/2017 DISCHARGE DATE: 04/23/2017 DISPOSITION: Okay to discharge the patient to a long-term care facility. CONDITION AT THE TIME OF DISCHARGE: Satisfactory. DISCHARGE ACTIVITY: As tolerated. DISCHARGE DIET: Cardiac diet. ALLERGIES: 1. OXYCONTIN. 2. CODEINE. 3. PERCOCET. DISCHARGE MEDICATIONS: 1. B12 1000 micrograms p.o. daily. 2. Folic acid 1 milligram p.o. daily. 3. Hydrocodone. 4. Acetaminophen 5/325 p.o. q.6 h p.r.n. pain. 5. Levothyroxine 125 micrograms p.o. daily. 6. Ativan 0.5 milligrams p.r.n. anxiety. 7. Temazepam 50 milligrams p.o. at bedtime p.r.n. insomnia. 8. Thiamine 100 milligrams p.o. daily. 9. Amlodipine / Benazepril 05/10 p.o. daily. 10. Lisinopril 20 milligrams p.o. daily. FOLLOW UP: The patient was advised to follow up with neurology, primary care physician and psychiatry in one week. ADMISSION DIAGNOSIS: 1. Hyponatremia which is improved. 2. Hypokalemia which resolved. 3. Insomnia. 4. Alcohol intoxication. 5. Alcohol withdrawal. The patient was given DT prophylaxis. 6. Hypothyroidism. TSH was high. Levothyroxine increased from 100-125 micrograms p.o. daily. 7. History of hypertension. 8. History of smoking. 9. History of alcohol abuse. 10.Tp has dementia, neurology has seen the patient. The patient has a low vitamin B12 and was started on replacement. HOSPITAL COURSE: This is 71-year-old female admitted with the above diagnosis and complaints. The patient was seen by neurology and psychiatry. The patient has dementia per psychiatry and neurology. The patient had mild hyponatremia. The patient had hypokalemia which was replaced during hospital stay. The patient's urinalysis was normal. Urine toxi screen was negative. Alcohol level was less than 3. PT 11.2. INR 1.0. PTT 29.0. CBC was normal. The patient had a hand x-ray done that showed no acute fracture dislocation and no significant arthritic changes. Chest x-ray was done and shows acute right rib fracture, COPD, no evidence of acute airspace disease, pneumothorax or significant congestion. The patient was also diagnosed with acute right rib fracture. Please see further details in the medical record. Mckay Ny MD EA/ALVAREZ /8:18 AM /9:23 PM
== END 2017-04-23 14:38 | DRG 641 ==
LOC: PHED 13:10 → PHEDA 15:56 → PH3A 17:05
PROVIDERS: ADMIT Family Medicine; ATTEND Family Medicine
DX: E87.1 Hypo-osmolality and hyponatremia (principal); S22.41XA Multiple fractures of ribs, right side, initial encounter for closed fracture; J44.9 Chronic obstructive pulmonary disease, unspecified; F03.90 Unspecified dementia, unspecified severity, without behavioral disturbance, psychotic disturbance, mood disturbance, and anxiety; F10.230 Alcohol dependence with withdrawal, uncomplicated; F13.239 Sedative, hypnotic or anxiolytic dependence with withdrawal, unspecified; R62.7 Adult failure to thrive; F41.9 Anxiety disorder, unspecified; G47.00 Insomnia, unspecified; J45.909 Unspecified asthma, uncomplicated; I10 Essential (primary) hypertension; Z72.0 Tobacco use; F32.9 Major depressive disorder, single episode, unspecified; E03.9 Hypothyroidism, unspecified; E87.6 Hypokalemia; Z60.2 Problems related to living alone
CPT/HCPCS: 71020; 73130; 80048; 80053; 80307; 81001; 82550; 82607; 83735; 84439; 84443; 84484; 85025; 85610; 85730; 86592; 93005; J2060; J3475; J7030